=== PATIENT | female | born 1965 | race American Indian/Alaskan Native ===

== ENCOUNTER 2020-12-14 21:09 | Inpatient (IN) | payer BC ==
[2020-12-14] MEDS ORDERED: SODIUM CHLORIDE 0.9% 1000 ML 1,000 ML IV ONE ×2 (21:26→23:16)
[2020-12-14] MEDS ORDERED: ONDANSETRON 4 MG/2 ML INJ IV ONE (21:27)
--- NOTE | 2020-12-14 21:36 | Emergency Department Report ---
ED General Adult HPI - General Chief complaint: Chest Pain Stated complaint: CHEST PAIN Time Seen by Provider: 12/14/20 21:15 Source: patient, EMS Mode of arrival: Stretcher Limitations: No Limitations - History of Present Illness Initial comments: Patient is 55 years old female with history of diabetes and hypertension. Patient presented to the ER via EMS complaining of generalized weakness, chest pain, shortness of breath, nausea, vomiting and diarrhea. Patient stated that her symptoms been going on for 5 days. Patient stated that she tested positive for COVID-19 today. -: days(s) (5) Severity scale (0 -10): 0 - Related Data Home Medications Medication Instructions Recorded Confirmed Last Taken Zolpidem (Nf) [Ambien (Nf)] 10 mg PO QHS 06/06/14 12/16/20 Unknown glyBURIDE [Diabeta] 5 mg PO DAILY 06/06/14 12/16/20 Unknown metFORMIN [Glucophage] 1,000 mg PO BID 06/06/14 12/16/20 Unknown Previous Rx's Medication Instructions Recorded Last Taken Type Enoxaparin [Lovenox] 110 mg SQ BID #10 syringe 06/10/14 Unknown Rx Metoprolol [Lopressor TAB] 25 mg PO BID #60 tablet 06/10/14 Unknown Rx Warfarin [Coumadin] 7.5 mg PO DAILY@1700 #30 tablet 06/10/14 Unknown Rx amLODIPine 10 mg PO QDAY #30 tablet 06/10/14 Unknown Rx Allergies Allergy/AdvReac Type Severity Reaction Status Date / Time No Known Allergies Allergy Unverified 06/06/14 17:09 ED Review of Systems ROS: Stated complaint: CHEST PAIN Other details as noted in HPI Comment: All other systems reviewed and negative Constitutional: chills, fever ENT: throat pain, congestion Respiratory: cough, shortness of breath, SOB with exertion, SOB at rest Cardiovascular: chest pain, palpitations Gastrointestinal: nausea, vomiting, diarrhea. denies: abdominal pain Musculoskeletal: denies: back pain Neurological: weakness. denies: headache, numbness, paresthesias, confusion, a bnormal gait ED Past Medical Hx - Past Medical History Previous Medical History?: Yes Hx Hypertension: Yes Hx Diabetes: Yes Hx Pulmonary Embolism: Yes (diagnosed February 2010) Hx Asthma: Yes - Surgical History Past Surgical History?: No - Social History Smoking Status: Former Smoker Substance Use Type: None - Medications Home Medications: Home Medications Medication Instructions Recorded Confirmed Last Taken Type Zolpidem (Nf) [Ambien (Nf)] 10 mg PO QHS 06/06/14 12/16/20 Unknown History glyBURIDE [Diabeta] 5 mg PO DAILY 06/06/14 12/16/20 Unknown History metFORMIN [Glucophage] 1,000 mg PO BID 06/06/14 12/16/20 Unknown History Enoxaparin [Lovenox] 110 mg SQ BID #10 syringe 06/10/14 12/16/20 Unknown Rx Metoprolol [Lopressor TAB] 25 mg PO BID #60 tablet 06/10/14 12/16/20 Unknown Rx Warfarin [Coumadin] 7.5 mg PO DAILY@1700 #30 tablet 06/10/14 12/16/20 Unknown Rx amLODIPine 10 mg PO QDAY #30 tablet 06/10/14 12/16/20 Unknown Rx ED Physical Exam - General Limitations: No Limitations General appearance: alert, in distress - Head Head exam: Present: atraumatic, normocephalic, normal inspection - ENT ENT exam: Present: mucous membranes dry - Neck Neck exam: Present: normal inspection, full ROM. Absent: tenderness, meningismus - Respiratory Respiratory exam: Present: rales, decreased breath sounds. Absent: rhonchi - Cardiovascular Cardiovascular Exam: Present: tachycardia - GI/Abdominal GI/Abdominal exam: Present: soft, normal bowel sounds. Absent: distended, tenderness, guarding, rebound, rigid, organomegaly, mass, bruit, pulsatile mass, hernia - Extremities Exam Extremities exam: Present: normal inspection, full ROM, normal capillary refill. Absent: tenderness - Back Exam Back exam: Present: normal inspection, full ROM. Absent: CVA tenderness (R), CVA tenderness (L) - Neurological Exam Neurological exam: Present: alert, oriented X3, CN II-XII intact, normal gait, reflexes normal. Absent: motor sensory deficit - Psychiatric Psychiatric exam: Present: normal mood - Skin Skin exam: Present: warm, dry, intact ED Course Vital Signs 12/14/20 12/14/20 12/14/20 21:10 21:20 21:27 Temperature 97.5 F L Pulse Rate 114 H 113 H Respiratory 20 13 Rate Blood Pressure Blood Pressure 115/88 [Left] O2 Sat by Pulse 100 97 100 Oximetry 12/14/20 12/14/20 12/14/20 21:30 21:46 22:00 Temperature Pulse Rate 113 H 115 H 112 H Respiratory 18 14 26 H Rate Blood Pressure 112/85 115/88 115/88 Blood Pressure [Left] O2 Sat by Pulse 100 100 100 Oximetry 12/14/20 12/14/20 12/14/20 22:16 22:30 22:46 Temperature Pulse Rate 109 H 109 H 105 H Respiratory 17 21 19 Rate Blood Pressure 129/84 129/84 Blood Pressure [Left] O2 Sat by Pulse 100 100 99 Oximetry 12/14/20 12/14/20 12/14/20 23:16 23:27 23:30 Temperature Pulse Rate 107 H 108 H 111 H Respiratory 20 18 16 Rate Blood Pressure 129/84 116/93 Blood Pressure 116/93 [Left] O2 Sat by Pulse 100 100 100 Oximetry 12/14/20 12/14/20 12/15/20 23:40 23:46 00:00 Temperature Pulse Rate 111 H 107 H 103 H Respiratory 25 H 22 25 H Rate Blood Pressure 116/93 116/93 121/85 Blood Pressure [Left] O2 Sat by Pulse 98 99 100 Oximetry 12/15/20 12/15/20 12/15/20 00:16 00:30 00:46 Temperature Pulse Rate 104 H 115 H 108 H Respiratory 24 20 13 Rate Blood Pressure 121/85 121/85 Blood Pressure [Left] O2 Sat by Pulse 100 100 99 Oximetry 12/15/20 12/15/20 12/15/20 01:00 01:30 02:00 Temperature Pulse Rate 107 H 108 H 104 H Respiratory 22 26 H 26 H Rate Blood Pressure 127/75 109/62 109/62 Blood Pressure [Left] O2 Sat by Pulse 100 100 97 Oximetry 12/15/20 12/15/20 12/15/20 02:30 03:00 03:30 Temperature Pulse Rate 105 H 108 H 105 H Respiratory 24 22 12 Rate Blood Pressure 119/92 117/77 99/67 Blood Pressure [Left] O2 Sat by Pulse 98 99 99 Oximetry 12/15/20 12/15/20 12/15/20 04:00 04:30 05:00 Temperature Pulse Rate 104 H 95 H 92 H Respiratory 12 13 22 Rate Blood Pressure 94/64 94/64 109/90 Blood Pressure [Left] O2 Sat by Pulse 98 99 99 Oximetry 12/15/20 12/15/20 12/15/20 05:30 06:00 06:36 Temperature Pulse Rate 89 83 81 Respiratory 24 30 H 13 Rate Blood Pressure 128/104 126/90 Blood Pressure [Left] O2 Sat by Pulse 97 98 Oximetry 12/15/20 12/15/20 12/15/20 07:00 07:30 08:00 Temperature Pulse Rate 82 81 80 Respiratory 36 H 24 20 Rate Blood Pressure 124/95 112/73 112/73 Blood Pressure [Left] O2 Sat by Pulse 99 99 98 Oximetry 12/15/20 12/15/20 12/15/20 08:30 09:00 09:30 Temperature Pulse Rate 79 77 78 Respiratory 31 H 18 30 H Rate Blood Pressure 112/73 143/89 143/89 Blood Pressure [Left] O2 Sat by Pulse 97 85 100 Oximetry 12/15/20 12/15/20 12/15/20 10:00 10:30 11:00 Temperature Pulse Rate 79 78 78 Respiratory 29 H 22 28 H Rate Blood Pressure 116/82 104/75 101/73 Blood Pressure [Left] O2 Sat by Pulse 98 98 Oximetry 12/15/20 12/15/20 12/15/20 11:30 12:00 12:30 Temperature Pulse Rate 78 79 77 Respiratory 26 H 25 H 24 Rate Blood Pressure 101/73 118/79 107/87 Blood Pressure [Left] O2 Sat by Pulse 99 100 98 Oximetry 12/15/20 12/15/20 12/15/20 13:14 13:30 14:00 Temperature Pulse Rate 75 76 75 Respiratory 21 26 H 25 H Rate Blood Pressure 107/87 125/97 137/115 Blood Pressure [Left] O2 Sat by Pulse 100 99 100 Oximetry 12/15/20 12/15/20 12/15/20 14:30 15:00 15:30 Temperature Pulse Rate Respiratory 25 H 25 H 25 H Rate Blood Pressure 125/97 138/102 138/102 Blood Pressure [Left] O2 Sat by Pulse 97 98 97 Oximetry 12/15/20 12/15/20 12/15/20 16:00 16:30 17:00 Temperature Pulse Rate Respiratory 27 H 26 H 26 H Rate Blood Pressure 142/89 142/89 147/116 Blood Pressure [Left] O2 Sat by Pulse 94 99 98 Oximetry 12/15/20 12/15/20 12/15/20 17:30 18:00 18:30 Temperature Pulse Rate Respiratory 26 H 27 H 25 H Rate Blood Pressure 142/89 159/136 159/136 Blood Pressure [Left] O2 Sat by Pulse 97 98 98 Oximetry 12/15/20 12/15/20 12/15/20 18:51 19:00 19:55 Temperature Pulse Rate 88 Respiratory 26 H 24 24 Rate Blood Pressure 159/136 122/98 Blood Pressure 130/88 [Left] O2 Sat by Pulse 98 97 99 Oximetry 12/15/20 12/15/20 12/16/20 22:22 23:01 00:01 Temperature Pulse Rate 90 Respiratory 23 23 Rate Blood Pressure 154/76 134/74 133/73 Blood Pressure [Left] O2 Sat by Pulse 97 Oximetry 12/16/20 12/16/20 12/16/20 00:20 01:01 06:01 Temperature Pulse Rate 88 Respiratory 20 21 Rate Blood Pressure 113/82 116/67 Blood Pressure 154/87 [Left] O2 Sat by Pulse 98 96 96 Oximetry 12/16/20 12/16/20 12/16/20 06:51 07:01 07:11 Temperature Pulse Rate Respiratory Rate Blood Pressure 95/73 95/73 95/73 Blood Pressure [Left] O2 Sat by Pulse 95 95 95 Oximetry 12/16/20 12/16/20 12/16/20 07:18 07:21 07:30 Temperature Pulse Rate Respiratory Rate Blood Pressure 95/73 95/73 Blood Pressure [Left] O2 Sat by Pulse 97 94 95 Oximetry 12/16/20 07:54 Temperature Pulse Rate 85 Respiratory 16 Rate Blood Pressure 121/101 Blood Pressure [Left] O2 Sat by Pulse 96 Oximetry ED Medical Decision Making - Lab Data Result diagrams: 12/17/20 07:54 12/16/20 18:53 - EKG Data -: EKG Interpreted by [facility] EKG shows normal: sinus rhythm Rate: normal - EKG Data 12/14/20 23:[address] elevation, possible pericarditis. - Radiology Data Radiology results: report reviewed - Medical Decision Making Patient is 55 years old female with history of diabetes and hypertension. Patient presented to the ER via EMS complaining of generalized weakness, chest pain, shortness of breath, nausea, vomiting and diarrhea. Patient stated that her symptoms been going on for 5 days. Patient stated that she tested positive for COVID-19 today. Labs reviewed and showed elevated creatinine of 3.4 and BUN of 58 and a potassium of 5.6. Chest x-ray showed no acute abnormalities. Patient started on normal saline. Discussed the patient with Dr. Tejada he agreed to admit the patient to medical service for further management., Critical Care Time: Yes Critical care time in (mins) excluding proc time.: 30 Critical care attestation.: If time is entered above; I have spent that time in minutes in the direct care of this critically ill patient, excluding procedure time. ED Disposition Clinical Impression: COVID-19, Acute nausea with nonbilious vomiting, Acute hyperkalemia Acute renal failure Qualifiers: Acute renal failure type: with acute renal cortical necrosis Qualified Code(s): N17.1 - Acute kidney failure with acute cortical necrosis Disposition: DC-09 OP ADMIT IP TO THIS HOSP Is pt being admited?: Yes Condition: Stable
--- NOTE | 2020-12-14 21:58 | XRay Report ---
CHEST 1 VIEW 12/14/2020 9:31 PM INDICATION / CLINICAL INFORMATION: Dyspnea. COMPARISON: 07/11/2018 FINDINGS: SUPPORT DEVICES: None. HEART / MEDIASTINUM: No significant abnormality. LUNGS / PLEURA: No significant pulmonary or pleural abnormality. No pneumothorax. ADDITIONAL FINDINGS: No significant additional findings. IMPRESSION: 1. No acute findings. Signer Name: Charles Baker MD Signed: 12/14/2020 9:53 PM Workstation Name: [id number]
--- NOTE | 2020-12-14 22:02 | History and Physical Report ---
History of Present Illness Date of examination: 12/14/20 Date of admission: 12/14/20 Chief complaint: Shortness of breath Cough History of present illness: This is a 55 years old female with history of diabetes and hypertension. Patient presented to the ER via EMS complaining of generalized weakness, chest pain, shortness of breath, nausea, vomiting and diarrhea. Patient stated that her symptoms been going on for 5 days. Patient stated that she tested positive for COVID-19 today. Patient also reports abdominal pain. Patient is on oxygen by nasal cannula at 2 L. I reviewed patient medication record and vital signs. Patient started on Decadron, ascorbic acid, vitamin D and zinc sulfate. Patient advised on the use of incentive spirometer and prone positioning. Infectious disease consulted. Patient has history of PE and supposed to be on Coumadin. Patient patient has not been compliant with Coumadin therapyshe said she has not been taking it. Patient cannot recollect when she had the PE. Will start patient on heparin drip and Coumadinto a goal of 2-3 INR. Past History Past Medical History: diabetes, hypertension, pulmonary embolism Past Surgical History: No surgical history Social history: lives with family Family history: diabetes, hypertension Medications and Allergies Allergies Allergy/AdvReac Type Severity Reaction Status Date / Time No Known Allergies Allergy Unverified 06/06/14 17:09 Home Medications Medication Instructions Recorded Confirmed Last Taken Type Zolpidem (Nf) [Ambien (Nf)] 10 mg PO QHS 06/06/14 06/06/14 Unknown History glyBURIDE [Diabeta] 5 mg PO DAILY 06/06/14 06/06/14 Unknown History metFORMIN [Glucophage] 1,000 mg PO BID 06/06/14 06/06/14 Unknown History Enoxaparin [Lovenox] 110 mg SQ BID #10 syringe 06/10/14 Unknown Rx Metoprolol [Lopressor TAB] 25 mg PO BID #60 tablet 06/10/14 Unknown Rx Warfarin [Coumadin] 7.5 mg PO DAILY@1700 #30 tablet 06/10/14 Unknown Rx amLODIPine 10 mg PO QDAY #30 tablet 06/10/14 Unknown Rx Active Meds: Active Medications Sodium Chloride (Nacl 0.9% 1000 Ml) 1,000 mls @ 999 mls/hr IV BOLUS ONE Stop: 12/14/20 22:26 Last Admin: 12/14/20 21:45 Dose: 999 mls/hr Documented by: Review of Systems Constitutional: fatigue, weakness, malaise Ears, nose, mouth and throat: no epistaxis, no bleeding gums Breasts: no pain Cardiovascular: high blood pressure Respiratory: cough, shortness of breath, dyspnea on exertion, other (Patient on oxygen) Gastrointestinal: abdominal pain, nausea, vomiting, no melena Rectal: no itching, no hemorrhoids Musculoskeletal: muscle weakness Integumentary: no rash, no pruritis Psychiatric: anxiety Endocrine: high blood sugars Hematologic/Lymphatic: no easy bruising, no easy bleeding Allergic/Immunologic: no urticaria Exam - Constitutional Vitals: Temp Pulse Resp BP Pulse Ox 97.5 F L 114 H 20 115/88 100 12/14/20 21:10 12/14/20 21:10 12/14/20 21:10 12/14/20 21:10 12/14/20 21:27 General appearance: Present: mild distress, obese - EENT Eyes: Present: PERRL ENT: hearing intact, clear oral mucosa - Neck Neck: Present: supple, normal ROM - Respiratory Respiratory effort: normal Respiratory: bilateral: CTA - Cardiovascular Heart rate: 111 Heart Sounds: Present: S1 & S2. Absent: rub, click - Extremities Extremities: pulses symmetrical, No edema Peripheral Pulses: within normal limits - Abdominal General gastrointestinal: Present: soft, non-tender, non-distended, normal bowel sounds Female genitourinary: Present: normal - Integumentary Integumentary: Present: clear, warm, dry - Musculoskeletal Musculoskeletal: gait normal, strength equal bilaterally - Psychiatric Psychiatric: appropriate mood/affect, intact judgment & insight, cooperative - Neurologic Neurologic: CNII-XII intact, moves all extremities - Allied Health Allied health notes reviewed: nursing Results - Labs CBC & Chem 7: 12/14/20 21:42 12/15/20 01:58 Assessment and Plan - Patient Problems (1) Pulmonary embolism Current Visit: No Status: Acute Plan to address problem: Patient has history of pulmonary embolism We will continue anticoagulant with Coumadin Daily PT INR goal rates 2-3 Will discussed the consequence of non compliance with Coumadin therapy with patient When she is more alert and oriented (2) Diabetes Current Visit: No Status: Chronic Plan to address problem: Monitor blood sugar with sliding scale protocol Check hemoglobin A1c We will resume oral antidiabetic at discharge (3) Uncontrolled hypertension Current Visit: No Status: Chronic Plan to address problem: Monitor blood pressure Resume home antihypertensive As needed hydralazine (4) Acute hyperkalemia Current Visit: Yes Status: Acute Plan to address problem: Likely secondary to dehydration Monitor potassium level (5) Acute renal failure Current Visit: Yes Status: Acute Plan to address problem: Secondary to dehydration from nausea and vomiting Continue IV hydration Monitor kidney function consult manager radio if needed (6) COVID-19 Current Visit: Yes Status: Acute Plan to address problem: Patient said she was positive for Covid today Continue airborne and contact isolation per Covid protocol Consult ID follow-up with plan of care Ascorbic acid, vitamin D, and zinc sulfate supplement Encourage to use incentive spirometer and advised on prone position Monitor inflammatory markers CT of the chest shows bilateral pneumonia likely COVID-19 (7) Acute respiratory failure with hypoxia Current Visit: Yes Status: Acute Plan to address problem: Most likely due to Covid infection ABG, and bronchodilators, systemic steroid. Chest x-ray shows bilateral pneumonia [employer] consult follow-up with 60 respirations recommendation (8) DVT prophylaxis Current Visit: Yes Status: Acute Plan to address problem: Patient is on Coumadin Start heparin drip (9) Full code status Current Visit: Yes Status: Acute Plan to address problem: Patient is full code
[2020-12-14 22:23] LABS: Hematocrit 45.8 % (30.3-42.9); Hemoglobin 15.9 gm/dl (10.1-14.3); Mean Corpuscular HGB Conc 35 % (30-34); Mean Corpuscular Volume 87 fl (79-97); Platelet Count 289 K/mm3 (140-440); Red Cell Distribution Width 13.5 % (13.2-15.2)
[2020-12-14 22:25] LABS: INR 0.91 (0.87-1.13)
[2020-12-14 22:26] LABS: Partial Thromboplastin Time 30.3 Sec. (24.2-36.6)
[2020-12-14 22:36] LABS: BUN/Creatinine Ratio 19; Blood Urea Nitrogen 58 mg/dL (7-17); Calcium 9.4 mg/dL (8.4-10.2); Chol/HDL Ratio 5.88 %; HDL Cholesterol 25 mg/dL (40-59); Hemolysis Index 82; LDL Cholesterol,Direct TNR mg/dL (50-130)
[2020-12-15] MEDS ORDERED: ALUM-MAG HYDROXIDE-SIMETHICONE 200-200-20MG/5ML ORAL LIQD 30 ML PO PRN (00:07)
[2020-12-15] MEDS ORDERED: NALOXONE 0.4 MG/1 ML INJ IV PRN (00:07)
[2020-12-15] MEDS ORDERED: MAGNESIUM HYDROXIDE (MOM) ORAL LIQD UDC PO PRN (00:07)
[2020-12-15] MEDS ORDERED: IBUPROFEN 600 MG TAB PO PRN (00:07)
[2020-12-15] MEDS ORDERED: SENNOSIDES 8.6 MG TAB PO PRN (00:07)
[2020-12-15] MEDS ORDERED: ONDANSETRON 4 MG/2 ML INJ IV PRN (00:07)
[2020-12-15] MEDS ORDERED: ACETAMINOPHEN 325 MG TAB PO PRN (00:07)
[2020-12-15] MEDS ORDERED: SODIUM CHLORIDE 0.9% 1000 ML 1,000 ML IV SCH (00:15)
[2020-12-15] MEDS ORDERED: traZODone 50 MG TAB PO PRN (00:17)
--- NOTE | 2020-12-15 01:02 | Cat Scan Report ---
CT CHEST WITHOUT CONTRAST INDICATION / CLINICAL INFORMATION: Shortness Of Breath, COVID +. TECHNIQUE: Axial CT images were obtained through the chest without contrast. [facility] CT [facility] are performed using CT dose reduction for ALARA by means of automated exposure control. COMPARISON: No prior CT. Radiograph earlier in the day. FINDINGS: HEART: Heart is normal size. Small pericardial effusion measuring up to 10 mm thickness anterior to t he right ventricle. CORONARY ARTERY CALCIFICATION: None. THORACIC AORTA: No significant abnormality. MEDIASTINUM / RYAN: No significant abnormality. PLEURA: No pleural effusion. No pneumothorax. LUNGS: Multifocal patchy pulmonary opacities throughout all lobes. No airspace consolidation. ADDITIONAL FINDINGS: None. UPPER ABDOMEN: Multiple small calcified gallstones without inflammation. SKELETAL SYSTEM: No significant abnormality. IMPRESSION: 1. Patchy bilateral pneumonia likely representing early atypical/viral pneumonia such as Covid. 2. Small pericardial effusion. 3. Cholelithiasis. Signer Name: Akila Gurrola MD Signed: 12/15/2020 12:57 AM Workstation Name: [id number]
[2020-12-15] MEDS: ZINC SULFATE 220 MG CAP PO SCH ×3 (01:14→22:22)
[2020-12-15] MEDS: METOPROLOL TARTRATE 25 MG TAB PO SCH ×3 (01:14→22:22)
[2020-12-15 02:38] LABS: INR 0.96 (0.87-1.13)
[2020-12-15 02:47] LABS: C-Reactive Protein 0.6 mg/dL (0.00-1.30)
[2020-12-15] MEDS ORDERED: cefTRIAXone/NS 1 GM/50 ML 1 GM/50 ML BAG IV ONE (02:54)
[2020-12-15] MEDS ORDERED: AZITHROMYCIN/NS 500 MG/250 ML 500 MG/250 ML BAG IV ONE (02:54)
[2020-12-15] MEDS ORDERED: MORPHINE 4 MG/1 ML INJ IV ONE (05:02)
[2020-12-15] MEDS ORDERED: HEPARIN 10,000 UNITS/10 ML VIAL IV ONE (05:13)
[2020-12-15] MEDS ORDERED: HEPARIN 10,000 UNITS/10 ML VIAL IV PRN (05:13)
[2020-12-15] MEDS ORDERED: HEPARIN/ 0.45% NACL DRIP 25,000 UNIT/500 ML BAG IV SCH (06:00)
[2020-12-15 06:06] LABS: Alanine Aminotransferase 36 units/L (7-56)
[2020-12-15 06:08] LABS: Bilirubin,Direct < 0.2 mg/dL (0-0.2)
[2020-12-15] MEDS ORDERED: FAMOTIDINE 20 MG/2 ML INJ IV SCH ×2 (10:00)
--- NOTE | 2020-12-15 11:14 | Consultation ---
History of Present Illness Consult date: 12/15/20 Past History Past Medical History: diabetes, hypertension, pulmonary embolism Past Surgical History: No surgical history Social history: lives with family Family history: diabetes, hypertension Medications and Allergies Allergies Allergy/AdvReac Type Severity Reaction Status Date / Time No Known Allergies Allergy Unverified 06/06/14 17:09 Home Medications Medication Instructions Recorded Confirmed Last Taken Type Zolpidem (Nf) [Ambien (Nf)] 10 mg PO QHS 06/06/14 06/06/14 Unknown History glyBURIDE [Diabeta] 5 mg PO DAILY 06/06/14 06/06/14 Unknown History metFORMIN [Glucophage] 1,000 mg PO BID 06/06/14 06/06/14 Unknown History Enoxaparin [Lovenox] 110 mg SQ BID #10 syringe 06/10/14 Unknown Rx Metoprolol [Lopressor TAB] 25 mg PO BID #60 tablet 06/10/14 Unknown Rx Warfarin [Coumadin] 7.5 mg PO DAILY@1700 #30 tablet 06/10/14 Unknown Rx amLODIPine 10 mg PO QDAY #30 tablet 06/10/14 Unknown Rx Active Meds: Active Medications Acetaminophen (Acetaminophen 325 Mg Tab) 650 mg PO Q4H PRN PRN Reason: Pain MILD(1-3)/Fever >100.5/RECIO Al Hydrox/Mg Hydrox/Simethicone (Alum-Mag Hydroxide-Simethicone [id number]/5ml Oral Liqd 30 Ml) 30 ml PO Q4H PRN PRN Reason: Indigestion Amlodipine Besylate (Amlodipine 10 Mg Tab) 10 mg PO QDAY [facility] Ascorbic Acid (Ascorbic Acid 500 Mg Tab) 500 mg PO QDAY [facility] Cholecalciferol (Cholecalciferol (Vit D3) 1000 Unit (25 Mcg) Tab) 1,000 unit PO QDAY [facility] Dexamethasone (Dexamethasone 4 Mg/Ml Vial) 6 mg IV DAILY [facility] Famotidine (Famotidine 20 Mg/2 Ml Inj) 20 mg IV DAILY [facility] Heparin Sodium (Porcine) (Heparin 10,000 Units/10 Ml Vial) 4,000 unit 40 unit/kg (4000 unit) IV Q6H PRN PRN Reason: Anti-Xa Assay < 0.1 units/ml Sodium Chloride (Nacl 0.9% 1000 Ml) 1,000 mls @ 125 mls/hr IV DIRECT RONNA Last Admin: 12/15/20 01:14 Dose: 125 mls/hr Documented by: Heparin Sodium/Sodium Chloride (Heparin/ 0.45% Nacl-25,000 Unit/500 Ml) 25,000 unit in 500 mls @ 29 mls/hr IV TITR [facility]; Protocol Last Admin: 12/15/20 05:43 Dose: 1,450 units/hr, 29 mls/hr Documented by: Ibuprofen (Ibuprofen 600 Mg Tab) 600 mg PO Q6H PRN PRN Reason: Pain, Mild (1-3) Insulin Human Lispro (Insulin Lispro 100 Unit/Ml) 0 unit SUB-Q ACHS [facility]; Protocol Magnesium Hydroxide (Magnesium Hydroxide (Mom) Oral Liqd Udc) 30 ml PO Q4H PRN PRN Reason: Constipation Metoprolol Tartrate (Metoprolol Tartrate 25 Mg Tab) 25 mg PO BID [facility] Last Admin: 12/15/20 01:14 Dose: 25 mg Documented by: Naloxone HCl (Naloxone 0.4 Mg/1 Ml Inj) 0.1 mg IV Q2MIN PRN PRN Reason: Res Rate </= 8 or 02 SAT < 92% Ondansetron HCl (Ondansetron 4 Mg/2 Ml Inj) 4 mg IV Q8H PRN PRN Reason: Nausea And Vomiting Last Admin: 12/15/20 00:30 Dose: 4 mg Documented by: Senna (Sennosides 8.6 Mg Tab) 8.6 mg PO Q12HR PRN PRN Reason: Constipation Sodium Chloride (Sodium Chloride 0.9% 10 Ml Flush Syringe) 10 ml IV BID [facility] Sodium Chloride (Sodium Chloride 0.9% 10 Ml Flush Syringe) 10 ml IV PRN PRN PRN Reason: LINE FLUSH Trazodone HCl (Trazodone 50 Mg Tab) 50 mg PO QHS PRN PRN Reason: Insomnia Zinc Sulfate (Zinc Sulfate 220 Mg Cap) 220 mg PO BID [facility] Last Admin: 12/15/20 01:14 Dose: 220 mg Documented by: Physical Examination Vital signs: Vital Signs Temp Pulse Resp BP Pulse Ox 97.5 F L 114 H 20 115/88 100 12/14/20 21:10 12/14/20 21:10 12/14/20 21:10 12/14/20 21:10 12/14/20 21:10 Results - Laboratory Findings CBC and BMP: 12/14/20 21:42 12/15/20 01:58 PT/INR, D-dimer PT 13.3 Sec. (12.2-14.9) 12/15/20 01:58 INR 0.96 (0.87-1.13) 12/15/20 01:58 D-Dimer 247.74 ng/mlDDU (0-234) H 12/15/20 01:58 Abnormal lab findings: Abnormal Labs 12/14/20 12/14/20 12/14/20 21:42 21:42 21:42 RBC 5.30 H Hgb 15.9 H Hct 45.8 H MCHC 35 H D-Dimer 251.44 H Sodium 129 L Potassium 5.6 H Chloride 96.0 L Carbon Dioxide 14 L BUN 58 H Creatinine 3.1 H Glucose 229 H Hemoglobin A1c Lactic Acid Ferritin AST Lactate Dehydrogenase Troponin T 0.034 H Total Protein Albumin Triglycerides 429 H HDL Cholesterol 25 L 12/14/20 12/15/20 12/15/20 21:42 01:58 01:58 RBC Hgb Hct MCHC D-Dimer Sodium Potassium Chloride Carbon Dioxide BUN Creatinine Glucose 265 H Hemoglobin A1c Lactic Acid 3.60 H* 4.00 H* Ferritin AST Lactate Dehydrogenase 261 H Troponin T 0.057 H D Total Protein Albumin Triglycerides HDL Cholesterol 12/15/20 12/15/20 12/15/20 01:58 01:58 01:58 RBC Hgb Hct MCHC D-Dimer 247.74 H Sodium Potassium Chloride Carbon Dioxide BUN Creatinine Glucose Hemoglobin A1c 10.7 H Lactic Acid Ferritin 1584.0 H AST Lactate Dehydrogenase Troponin T Total Protein Albumin Triglycerides HDL Cholesterol 12/15/20 12/15/20 12/15/20 05:24 05:24 08:13 RBC Hgb Hct MCHC D-Dimer Sodium Potassium Chloride Carbon Dioxide BUN Creatinine Glucose Hemoglobin A1c Lactic Acid 7.70 H* 9.60 H* Ferritin AST 58 H Lactate Dehydrogenase Troponin T Total Protein 5.4 L Albumin 3.0 L Triglycerides HDL Cholesterol Assessment and Plan Patient appears to be followed by Dr. Horta as an outpatient. Please consult him.
--- NOTE | 2020-12-15 11:16 | Event Note ---
Date: 12/15/[address] Horta as an outpatient. Please consult him or his group. Thank you.
[2020-12-15] MEDS: dexAMETHasone 4 MG/ML VIAL IV SCH (13:10)
[2020-12-15] MEDS: amLODIPine 10 MG TAB PO SCH (13:10)
--- NOTE | 2020-12-15 13:13 | Consultation ---
History of Present Illness - Reason for Consult Consult date: 12/15/20 - History of Present Illness 55-year-old female past medical history diabetes, hypertension presented to the hospital complaining of weakness, chest pain, shortness of breath. This is associated with generalized gastrointestinal symptoms. She also began 5 days prior to admission, and that she tested positive for COVID-19 as an outpatient. Notably she has a history of pulmonary embolism, but has not been compliant with her outpatient warfarin. Afebrile with a white count of 7.4. Decreased renal function, EGFR 19. Procalcitonin elevated. Normal inflammatory markers. Blood cultures no growth so far. Currently on dexamethasone Imaging personally reviewed: Chest CT: Patchy bilateral pneumonia review of systems: Deferred to reduce to the risk of transmission of COVID-19 Past History Past Medical History: diabetes, hypertension, pulmonary embolism Past Surgical History: No surgical history Social history: lives with family Family history: diabetes, hypertension Medications and Allergies Allergies Allergy/AdvReac Type Severity Reaction Status Date / Time No Known Allergies Allergy Unverified 06/06/14 17:09 Home Medications Medication Instructions Recorded Confirmed Last Taken Type Zolpidem (Nf) [Ambien (Nf)] 10 mg PO QHS 06/06/14 06/06/14 Unknown History glyBURIDE [Diabeta] 5 mg PO DAILY 06/06/14 06/06/14 Unknown History metFORMIN [Glucophage] 1,000 mg PO BID 06/06/14 06/06/14 Unknown History Enoxaparin [Lovenox] 110 mg SQ BID #10 syringe 06/10/14 Unknown Rx Metoprolol [Lopressor TAB] 25 mg PO BID #60 tablet 06/10/14 Unknown Rx Warfarin [Coumadin] 7.5 mg PO DAILY@1700 #30 tablet 06/10/14 Unknown Rx amLODIPine 10 mg PO QDAY #30 tablet 06/10/14 Unknown Rx Active Meds: Active Medications Acetaminophen (Acetaminophen 325 Mg Tab) 650 mg PO Q4H PRN PRN Reason: Pain MILD(1-3)/Fever >100.5/RECIO Al Hydrox/Mg Hydrox/Simethicone (Alum-Mag Hydroxide-Simethicone [phone]/5ml Oral Liqd 30 Ml) 30 ml PO Q4H PRN PRN Reason: Indigestion Amlodipine Besylate (Amlodipine 10 Mg Tab) 10 mg PO QDAY [facility] Apixaban (Apixaban 5 Mg Tab) 5 mg PO Q12HR [facility]; Protocol Ascorbic Acid (Ascorbic Acid 500 Mg Tab) 500 mg PO QDAY [facility] Cholecalciferol (Cholecalciferol (Vit D3) 1000 Unit (25 Mcg) Tab) 1,000 unit PO QDAY [facility] Dexamethasone (Dexamethasone 4 Mg/Ml Vial) 6 mg IV DAILY [facility] Famotidine (Famotidine 20 Mg/2 Ml Inj) 20 mg IV DAILY [facility] Sodium Chloride (Nacl 0.9% 1000 Ml) 1,000 mls @ 125 mls/hr IV DIRECT [facility] Last Admin: 12/15/20 01:14 Dose: 125 mls/hr Documented by: Ibuprofen (Ibuprofen 600 Mg Tab) 600 mg PO Q6H PRN PRN Reason: Pain, Mild (1-3) Insulin Human Lispro (Insulin Lispro 100 Unit/Ml) 0 unit SUB-Q ACHS [facility]; Protocol Magnesium Hydroxide (Magnesium Hydroxide (Mom) Oral Liqd Udc) 30 ml PO Q4H PRN PRN Reason: Constipation Metoprolol Tartrate (Metoprolol Tartrate 25 Mg Tab) 25 mg PO BID [facility] Last Admin: 12/15/20 01:14 Dose: 25 mg Documented by: Naloxone HCl (Naloxone 0.4 Mg/1 Ml Inj) 0.1 mg IV Q2MIN PRN PRN Reason: Res Rate </= 8 or 02 SAT < 92% Ondansetron HCl (Ondansetron 4 Mg/2 Ml Inj) 4 mg IV Q8H PRN PRN Reason: Nausea And Vomiting Last Admin: 12/15/20 00:30 Dose: 4 mg Documented by: Senna (Sennosides 8.6 Mg Tab) 8.6 mg PO Q12HR PRN PRN Reason: Constipation Sodium Chloride (Sodium Chloride 0.9% 10 Ml Flush Syringe) 10 ml IV BID [facility] Sodium Chloride (Sodium Chloride 0.9% 10 Ml Flush Syringe) 10 ml IV PRN PRN PRN Reason: LINE FLUSH Trazodone HCl (Trazodone 50 Mg Tab) 50 mg PO QHS PRN PRN Reason: Insomnia Zinc Sulfate (Zinc Sulfate 220 Mg Cap) 220 mg PO BID [facility] Last Admin: 12/15/20 01:14 Dose: 220 mg Documented by: Zolpidem Tartrate (Zolpidem 5 Mg Tab) 10 mg PO QHS [facility] Physical Examination - Physical Exam Narrative exam: Physical exam deferred to reduce risk of transmission of COVID-19. Please refer to primary team's note. - Constitutional Vitals: Vital Signs Temp Pulse Resp BP Pulse Ox 97.5 F L 78 26 H 101/73 99 12/14/20 21:10 12/15/20 11:30 12/15/20 11:30 12/15/20 11:30 12/15/20 11:30 Temperature -Last 24 Hours Temperature 97.5 F Results - Labs CBC & Chem 7: 12/14/20 21:42 12/15/20 01:58 Labs: Abnormal lab results 12/14/20 12/14/20 12/14/20 Range/Units 21:42 21:42 21:42 RBC 5.30 H (3.65-5.03) M/mm3 Hgb 15.9 H (10.1-14.3) gm/dl Hct 45.8 H (30.3-42.9) % MCHC 35 H (30-34) % D-Dimer 251.44 H (0-234) ng/mlDDU Sodium 129 L (137-145) mmol/L Potassium 5.6 H (3.6-5.0) mmol/L Chloride 96.0 L (98-107) mmol/L Carbon Dioxide 14 L (22-30) mmol/L BUN 58 H (7-17) mg/dL Creatinine 3.1 H (0.6-1.2) mg/dL Glucose 229 H (65-100) mg/dL Hemoglobin A1c (4-6) % Lactic Acid (0.7-2.0) mmol/L Ferritin (10.0-200.0) ng/mL AST (5-40) units/L Lactate Dehydrogenase (91-180) units/L Troponin T 0.034 H (0.00-0.029) ng/mL Total Protein (6.3-8.2) g/dL Albumin (3.9-5) g/dL Triglycerides 429 H (2-149) mg/dL HDL Cholesterol 25 L (40-59) mg/dL 12/14/20 12/15/20 12/15/20 Range/Units 21:42 01:58 01:58 RBC (3.65-5.03) M/mm3 Hgb (10.1-14.3) gm/dl Hct (30.3-42.9) % MCHC (30-34) % D-Dimer (0-234) ng/mlDDU Sodium (137-145) mmol/L Potassium (3.6-5.0) mmol/L Chloride (98-107) mmol/L Carbon Dioxide (22-30) mmol/L BUN (7-17) mg/dL Creatinine (0.6-1.2) mg/dL Glucose 265 H (65-100) mg/dL Hemoglobin A1c (4-6) % Lactic Acid 3.60 H* 4.00 H* (0.7-2.0) mmol/L Ferritin (10.0-200.0) ng/mL AST (5-40) units/L Lactate Dehydrogenase 261 H (91-180) units/L Troponin T 0.057 H D (0.00-0.029) ng/mL Total Protein (6.3-8.2) g/dL Albumin (3.9-5) g/dL Triglycerides (2-149) mg/dL HDL Cholesterol (40-59) mg/dL 12/15/20 12/15/20 12/15/20 Range/Units 01:58 01:58 01:58 RBC (3.65-5.03) M/mm3 Hgb (10.1-14.3) gm/dl Hct (30.3-42.9) % MCHC (30-34) % D-Dimer 247.74 H (0-234) ng/mlDDU Sodium (137-145) mmol/L Potassium (3.6-5.0) mmol/L Chloride (98-107) mmol/L Carbon Dioxide (22-30) mmol/L BUN (7-17) mg/dL Creatinine (0.6-1.2) mg/dL Glucose (65-100) mg/dL Hemoglobin A1c 10.7 H (4-6) % Lactic Acid (0.7-2.0) mmol/L Ferritin 1584.0 H (10.0-200.0) ng/mL AST (5-40) units/L Lactate Dehydrogenase (91-180) units/L Troponin T (0.00-0.029) ng/mL Total Protein (6.3-8.2) g/dL Albumin (3.9-5) g/dL Triglycerides (2-149) mg/dL HDL Cholesterol (40-59) mg/dL 12/15/20 12/15/20 12/15/20 Range/Units 05:24 05:24 08:13 RBC (3.65-5.03) M/mm3 Hgb (10.1-14.3) gm/dl Hct (30.3-42.9) % MCHC (30-34) % D-Dimer (0-234) ng/mlDDU Sodium (137-145) mmol/L Potassium (3.6-5.0) mmol/L Chloride (98-107) mmol/L Carbon Dioxide (22-30) mmol/L BUN (7-17) mg/dL Creatinine (0.6-1.2) mg/dL Glucose (65-100) mg/dL Hemoglobin A1c (4-6) % Lactic Acid 7.70 H* 9.60 H* (0.7-2.0) mmol/L Ferritin (10.0-200.0) ng/mL AST 58 H (5-40) units/L Lactate Dehydrogenase (91-180) units/L Troponin T (0.00-0.029) ng/mL Total Protein 5.4 L (6.3-8.2) g/dL Albumin 3.0 L (3.9-5) g/dL Triglycerides (2-149) mg/dL HDL Cholesterol (40-59) mg/dL Assessment and Plan Cultures: Blood culture no growth so far COVID positive as outpatient A/P: 55-year-old female past medical history diabetes, hypertension, pulmonary embolism presented to hospital with COVID-19 #COVID-19 pneumonia: Patient presented with a week of symptoms, chest x-ray with diffuse bilateral infiltrates, admission O2 sats on room air. #Acute hypoxemic respiratory failure: Likely secondary to COVID-19 infection. Currently on 2L NC #JULY: Renally dose antibiotics, not currently on candidate for remdesivir #Diabetes: tight glycemic control for best outcomes. Recs: -Dexamethasone 6 mg IV/PO daily for 10 days -Obtain q48-72h inflammatory markers - ferritin, Ddimer, CRP, LDH -Anticoagulation per hospital protocol -Proning as able Thank you for the consult, we will continue to follow. Carolann Grover MD [facility] ([facility] O: [phone] F: [phone]
--- NOTE | 2020-12-15 16:21 | Consultation ---
History of Present Illness - Reason for Consult acute renal failure - History of Present Illness 55-year-old female with a past medical history of hypertension and diabetes presented to the emergency department secondary to worsening weakness and shortness of breath. Found to have tested positive for COVID-19 and is being treated appropriately for COVID-19 pneumonia at this time. nephrology was consulted secondary to labs concerning for acute kidney injury with unclear baseline kidney disease. Past History Past Medical History: diabetes, hypertension, pulmonary embolism Past Surgical History: No surgical history Social history: lives with family Family history: diabetes, hypertension Medications and Allergies Allergies Allergy/AdvReac Type Severity Reaction Status Date / Time No Known Allergies Allergy Unverified 06/06/14 17:09 Home Medications Medication Instructions Recorded Confirmed Last Taken Type Zolpidem (Nf) [Ambien (Nf)] 10 mg PO QHS 06/06/14 06/06/14 Unknown History glyBURIDE [Diabeta] 5 mg PO DAILY 06/06/14 06/06/14 Unknown History metFORMIN [Glucophage] 1,000 mg PO BID 06/06/14 06/06/14 Unknown History Enoxaparin [Lovenox] 110 mg SQ BID #10 syringe 06/10/14 Unknown Rx Metoprolol [Lopressor TAB] 25 mg PO BID #60 tablet 06/10/14 Unknown Rx Warfarin [Coumadin] 7.5 mg PO DAILY@1700 #30 tablet 06/10/14 Unknown Rx amLODIPine 10 mg PO QDAY #30 tablet 06/10/14 Unknown Rx Active Meds: Active Medications Acetaminophen (Acetaminophen 325 Mg Tab) 650 mg PO Q4H PRN PRN Reason: Pain MILD(1-3)/Fever >100.5/RECIO Al Hydrox/Mg Hydrox/Simethicone (Alum-Mag Hydroxide-Simethicone [phone]/5ml Oral Liqd 30 Ml) 30 ml PO Q4H PRN PRN Reason: Indigestion Amlodipine Besylate (Amlodipine 10 Mg Tab) 10 mg PO QDAY [facility] Last Admin: 12/15/20 13:10 Dose: 10 mg Documented by: Apixaban (Apixaban 5 Mg Tab) 5 mg PO Q12HR [facility]; Protocol Ascorbic Acid (Ascorbic Acid 500 Mg Tab) 500 mg PO QDAY [facility] Aspirin (Aspirin 81 Mg Tab Chew) 81 mg PO QDAY [facility] Cholecalciferol (Cholecalciferol (Vit D3) 1000 Unit (25 Mcg) Tab) 1,000 unit PO QDAY [facility] Dexamethasone (Dexamethasone 4 Mg/Ml Vial) 6 mg IV DAILY [facility] Last Admin: 12/15/20 13:10 Dose: 6 mg Documented by: Famotidine (Famotidine 20 Mg/2 Ml Inj) 20 mg IV DAILY [facility] Last Admin: 12/15/20 13:10 Dose: 20 mg Documented by: Sodium Chloride (Nacl 0.9% 1000 Ml) 1,000 mls @ 125 mls/hr IV DIRECT [facility] Last Admin: 12/15/20 01:14 Dose: 125 mls/hr Documented by: Ibuprofen (Ibuprofen 600 Mg Tab) 600 mg PO Q6H PRN PRN Reason: Pain, Mild (1-3) Insulin Human Lispro (Insulin Lispro 100 Unit/Ml) 0 unit SUB-Q ACHS [facility]; Protocol Magnesium Hydroxide (Magnesium Hydroxide (Mom) Oral Liqd Udc) 30 ml PO Q4H PRN PRN Reason: Constipation Metoprolol Tartrate (Metoprolol Tartrate 25 Mg Tab) 25 mg PO BID [facility] Last Admin: 12/15/20 13:10 Dose: 25 mg Documented by: Naloxone HCl (Naloxone 0.4 Mg/1 Ml Inj) 0.1 mg IV Q2MIN PRN PRN Reason: Res Rate </= 8 or 02 SAT < 92% Ondansetron HCl (Ondansetron 4 Mg/2 Ml Inj) 4 mg IV Q8H PRN PRN Reason: Nausea And Vomiting Last Admin: 12/15/20 00:30 Dose: 4 mg Documented by: Senna (Sennosides 8.6 Mg Tab) 8.6 mg PO Q12HR PRN PRN Reason: Constipation Sodium Chloride (Sodium Chloride 0.9% 10 Ml Flush Syringe) 10 ml IV BID [facility] Sodium Chloride (Sodium Chloride 0.9% 10 Ml Flush Syringe) 10 ml IV PRN PRN PRN Reason: LINE FLUSH Trazodone HCl (Trazodone 50 Mg Tab) 50 mg PO QHS PRN PRN Reason: Insomnia Zinc Sulfate (Zinc Sulfate 220 Mg Cap) 220 mg PO BID [facility] Last Admin: 12/15/20 13:10 Dose: 220 mg Documented by: Zolpidem Tartrate (Zolpidem 5 Mg Tab) 10 mg PO QHS [facility] Review of Systems Constitutional: fatigue, weakness Exam - Vital Signs Vital signs: Vital Signs Temp Pulse Resp BP Pulse Ox 97.5 F L 114 H 20 115/88 100 12/14/20 21:10 12/14/20 21:10 12/14/20 21:10 12/14/20 21:10 12/14/20 21:10 - Physical Exam Narrative exam: patient was not directly physically examined in order to preserve PPE and reduce risk of transmission of COVID-19. primary team notes and physical examination reviewed at this time. Results - Lab Results 12/14/20 21:42 12/15/20 01:58 Most recent lab results Calcium 9.4 mg/dL (8.4-10.2) 12/14/20 21:42 - Image Kidney/bladder ultrasound: pending Assessment and Plan - Patient Problems (1) Acute renal failure Current Visit: Yes Status: Acute Plan to address problem: likely in the setting of Kovic 19 pneumonia prerenal injury. Agree with current regimen and gentle IV fluid hydration. Avoid all nephrotoxins and maintain mean arterial pressures above 65 mmHg. We will order renal ultrasound along with urine electrolytes. (2) Acute hyperkalemia Current Visit: Yes Status: Acute Plan to address problem: medical management with labs pending at this time. Anticipate that with gentle IV fluid hydration should also be able to improve potassium secretion. (3) Hypertension Current Visit: Yes Status: Chronic Plan to address problem: monitor blood pressures under current regimen. (4) Acute respiratory failure with hypoxia Current Visit: Yes Status: Acute Plan to address problem: management per primary/pulmonology. Stable on current oxygen therapy. (5) COVID-19 Current Visit: Yes Status: Acute Plan to address problem: appreciate recommendations from infectious disease. Management per ID recomme ndations. (6) Diabetes Current Visit: No Status: Chronic Plan to address problem: diabetes management per primary attending.
[2020-12-15 16:34] LABS: Hematocrit 43.7 % (30.3-42.9); Hemoglobin 14.5 gm/dl (10.1-14.3); Mean Corpuscular HGB Conc 33 % (30-34); Mean Corpuscular Volume 90 fl (79-97); Platelet Count 230 K/mm3 (140-440); Red Blood Count 4.86 M/mm3 (3.65-5.03); Red Cell Distribution Width 13.8 % (13.2-15.2)
--- NOTE | 2020-12-15 16:39 | Consultation ---
History of Present Illness Consult date: 12/15/20 Requesting physician: EYAD HUFFMAN Consult reason: elevated troponin History of present illness: 55 y/o female with a pmhx of DM and HTN who presented to the ED with complaints of weakness, mailase, SOB, nausea, vomiting, and diarrhea x4 days. Per documentation patient has history of PE is on Coumadin and is non compliant with Coumadin. At time of interview patient denies an PMHx other than HTN and DM. Patient reported on 12/14/2020 she tested positive for COVID-19 and after feeling worse decided to come to the ED. The patient also endorses a sharp pain that occurs upon movement at times that she rates as 2/10. Cardiology was consulted because patient had elevated troponins= 0.03-> 0.057. Past History Past Medical History: diabetes, hypertension, pulmonary embolism Past Surgical History: No surgical history Social history: lives with family Family history: diabetes, hypertension Medications and Allergies Allergies Allergy/AdvReac Type Severity Reaction Status Date / Time No Known Allergies Allergy Unverified 06/06/14 17:09 Home Medications Medication Instructions Recorded Confirmed Last Taken Type Zolpidem (Nf) [Ambien (Nf)] 10 mg PO QHS 06/06/14 06/06/14 Unknown History glyBURIDE [Diabeta] 5 mg PO DAILY 06/06/14 06/06/14 Unknown History metFORMIN [Glucophage] 1,000 mg PO BID 06/06/14 06/06/14 Unknown History Enoxaparin [Lovenox] 110 mg SQ BID #10 syringe 06/10/14 Unknown Rx Metoprolol [Lopressor TAB] 25 mg PO BID #60 tablet 06/10/14 Unknown Rx Warfarin [Coumadin] 7.5 mg PO DAILY@1700 #30 tablet 06/10/14 Unknown Rx amLODIPine 10 mg PO QDAY #30 tablet 06/10/14 Unknown Rx Active Meds: Active Medications Acetaminophen (Acetaminophen 325 Mg Tab) 650 mg PO Q4H PRN PRN Reason: Pain MILD(1-3)/Fever >100.5/RECIO Al Hydrox/Mg Hydrox/Simethicone (Alum-Mag Hydroxide-Simethicone [phone]/5ml Oral Liqd 30 Ml) 30 ml PO Q4H PRN PRN Reason: Indigestion Amlodipine Besylate (Amlodipine 10 Mg Tab) 10 mg PO QDAY [facility] Last Admin: 12/15/20 13:10 Dose: 10 mg Documented by: Apixaban (Apixaban 5 Mg Tab) 5 mg PO Q12HR [facility]; Protocol Ascorbic Acid (Ascorbic Acid 500 Mg Tab) 500 mg PO QDAY [facility] Aspirin (Aspirin 81 Mg Tab Chew) 81 mg PO QDAY [facility] Cholecalciferol (Cholecalciferol (Vit D3) 1000 Unit (25 Mcg) Tab) 1,000 unit PO QDAY [facility] Dexamethasone (Dexamethasone 4 Mg/Ml Vial) 6 mg IV DAILY [facility] Last Admin: 12/15/20 13:10 Dose: 6 mg Documented by: Famotidine (Famotidine 20 Mg/2 Ml Inj) 20 mg IV DAILY [facility] Last Admin: 12/15/20 13:10 Dose: 20 mg Documented by: Sodium Chloride (Nacl 0.9% 1000 Ml) 1,000 mls @ 125 mls/hr IV DIRECT [facility] Last Admin: 12/15/20 01:14 Dose: 125 mls/hr Documented by: Ibuprofen (Ibuprofen 600 Mg Tab) 600 mg PO Q6H PRN PRN Reason: Pain, Mild (1-3) Insulin Human Lispro (Insulin Lispro 100 Unit/Ml) 0 unit SUB-Q ACHS [facility]; Protocol Magnesium Hydroxide (Magnesium Hydroxide (Mom) Oral Liqd Udc) 30 ml PO Q4H PRN PRN Reason: Constipation Metoprolol Tartrate (Metoprolol Tartrate 25 Mg Tab) 25 mg PO BID [facility] Last Admin: 12/15/20 13:10 Dose: 25 mg Documented by: Naloxone HCl (Naloxone 0.4 Mg/1 Ml Inj) 0.1 mg IV Q2MIN PRN PRN Reason: Res Rate </= 8 or 02 SAT < 92% Ondansetron HCl (Ondansetron 4 Mg/2 Ml Inj) 4 mg IV Q8H PRN PRN Reason: Nausea And Vomiting Last Admin: 12/15/20 00:30 Dose: 4 mg Documented by: Senna (Sennosides 8.6 Mg Tab) 8.6 mg PO Q12HR PRN PRN Reason: Constipation Sodium Chloride (Sodium Chloride 0.9% 10 Ml Flush Syringe) 10 ml IV BID [facility] Sodium Chloride (Sodium Chloride 0.9% 10 Ml Flush Syringe) 10 ml IV PRN PRN PRN Reason: LINE FLUSH Trazodone HCl (Trazodone 50 Mg Tab) 50 mg PO QHS PRN PRN Reason: Insomnia Zinc Sulfate (Zinc Sulfate 220 Mg Cap) 220 mg PO BID [facility] Last Admin: 12/15/20 13:10 Dose: 220 mg Documented by: Zolpidem Tartrate (Zolpidem 5 Mg Tab) 10 mg PO QHS [facility] Review of Systems All systems: negative Constitutional: fever, weakness, malaise, no weight loss, no weight gain Ears, nose, mouth and throat: no ear pain, no ear discharge, no tinnitis, no decreased hearing, no nasal congestion Cardiovascular: chest pain, shortness of breath, no orthopnea, no palpitations, no edema, no syncope, no lightheadedness Respiratory: cough, shortness of breath, no cough with sputum, no excessive sputum Gastrointestinal: abdominal pain, nausea, vomiting, diarrhea, no constipation Musculoskeletal: no neck stiffness, no neck pain, no shooting arm pain Integumentary: no rash, no pruritis, no redness Neurological: no head injury, no transient paralysis, no paralysis Psychiatric: no anxiety Endocrine: no cold intolerance, no heat intolerance Hematologic/Lymphatic: no easy bruising, no easy bleeding Physical Examination Last Vital Signs Temp 97.5 F L 12/14/20 21:10 Pulse 78 12/15/20 11:30 Resp 26 H 12/15/20 11:30 BP 101/73 12/15/20 11:30 Pulse Ox 99 12/15/20 11:30 General appearance: no acute distress HEENT: Positive: PERRL Neck: Positive: trachea midline Cardiac: Positive: Reg Rate and Rhythm Lungs: Positive: clear to auscultation, Normal Breath Sounds Neuro: Positive: Grossly Intact Abdomen: Positive: Soft, Active Bowel Sounds Skin: Negative: Rash, Suspicious Lesions, Ulceration Extremities: Present: upper extr. pulses, lower extr. pulses. Absent: edema Results 12/14/20 21:42 12/15/20 15:18 Cardiac Enzymes 12/15/20 12/15/20 Range/Units 01:58 05:24 AST 58 H (5-40) units/L Lactate Dehydrogenase 261 H (91-180) units/L Coagulation 12/14/20 12/15/20 Range/Units 21:42 01:58 PT 12.8 13.3 (12.2-14.9) Sec. INR 0.91 0.96 (0.87-1.13) APTT 30.3 (24.2-36.6) Sec. Lipids 12/14/20 Range/Units 21:42 Triglycerides 429 H (2-149) mg/dL Cholesterol 147 (50-199) mg/dL HDL Cholesterol 25 L (40-59) mg/dL Cholesterol/HDL Ratio 5.88 % CBC 12/14/20 Range/Units 21:42 WBC 7.4 (4.5-11.0) K/mm3 RBC 5.30 H (3.65-5.03) M/mm3 Hgb 15.9 H (10.1-14.3) gm/dl Hct 45.8 H (30.3-42.9) % Plt Count 289 (140-440) K/mm3 Lymph # (Auto) Director Of Quality Control [place] # (Auto) Director Of Quality Control Eos # (Auto) Director Of Quality Control Baso # (Auto) Director Of Quality Control Comprehensive Metabolic Panel 12/14/20 12/15/20 12/15/20 Range/Units 21:42 01:58 05:24 Sodium 129 L (137-145) mmol/L Potassium 5.6 H (3.6-5.0) mmol/L Chloride 96.0 L (98-107) mmol/L Carbon Dioxide 14 L (22-30) mmol/L BUN 58 H (7-17) mg/dL Creatinine 3.1 H (0.6-1.2) mg/dL Glucose 229 H 265 H (65-100) mg/dL Calcium 9.4 (8.4-10.2) mg/dL Direct Bilirubin < 0.2 (0-0.2) mg/dL Indirect Bilirubin 0.0 mg/dL AST 58 H (5-40) units/L ALT 36 (7-56) units/L Alkaline Phosphatase 67 (35-129) units/L Total Protein 5.4 L (6.3-8.2) g/dL Albumin 3.0 L (3.9-5) g/dL 12/15/20 Range/Units 15:18 Sodium (137-145) mmol/L Potassium (3.6-5.0) mmol/L Chloride (98-107) mmol/L Carbon Dioxide (22-30) mmol/L BUN (7-17) mg/dL Creatinine 3.7 H (0.6-1.2) mg/dL Glucose (65-100) mg/dL Calcium (8.4-10.2) mg/dL Direct Bilirubin (0-0.2) mg/dL Indirect Bilirubin mg/dL AST (5-40) units/L ALT (7-56) units/L Alkaline Phosphatase (35-129) units/L Total Protein (6.3-8.2) g/dL Albumin (3.9-5) g/dL - Imaging and Cardiology EKG: report reviewed, image reviewed EKG interpretations - Telemetry EKG Rhythm: Sinus Tachycardia - EKG Sinus rhythms and dysrhythmias: sinus tachycardia Assessment and Plan Elevated Troponins * EKG shows sinus tachy with rate of 113 with no acute ischemic changes. * Patients troponins noted to be mildly elevated 0.03-> 0.05. trend CE COVID-19 * Patient reports testing positive for COVID-19 * COVID PCR test pending * ID consulted Acute respiratory failure in setting of COVID-19 * Pulmonology consulted HTN * Agree with Amlodipine 10mg PO QD, Metoprolol 50mg PO BID, DVT prophlaxis * H/o PE * Patient on Eliquis * Manage per primary team Patient seen in conjunction with Dr. Pickens who agrees with this plan of care. Will continue to follow - Patient Problems (1) Acute respiratory failure with hypoxia Current Visit: Yes Status: Acute (2) COVID-19 Current Visit: Yes Status: Acute (3) DVT prophylaxis Current Visit: Yes Status: Acute (4) Person under investigation for COVID-19 Current Visit: Yes Status: Acute (5) Hypertension Current Visit: Yes Status: Chronic (6) Diabetes Current Visit: No Status: Chronic
[2020-12-15 16:45] LABS: INR 1.19 (0.87-1.13)
[2020-12-15 16:50] LABS: Partial Thromboplastin Time 106.2 Sec. (24.2-36.6)
[2020-12-15] MEDS ORDERED: WARFARIN 7.5 MG TAB PO SCH (17:00)
[2020-12-15] MEDS: APIXABAN 5 MG TAB PO SCH ×2 (17:51→22:24)
[2020-12-15] MEDS: ASPIRIN 81 MG TAB CHEW PO SCH (17:51)
--- NOTE | 2020-12-15 18:09 | Electrocardiograph Report ---
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
[2020-12-15] MEDS ORDERED: ZOLPIDEM 10 MG PO SCH (22:00)
[2020-12-15] MEDS ORDERED: ENOXAPARIN 100 MG/1 ML INJ SUB-Q SCH (22:00)
[2020-12-15] MEDS: INSULIN LISPRO 100 UNIT/ML SUB-Q SCH (22:25)
[2020-12-15] MEDS: ZOLPIDEM 5 MG TAB PO SCH (22:25)
[2020-12-16 06:02] LABS: Hematocrit 45.9 % (30.3-42.9); Hemoglobin 15.8 gm/dl (10.1-14.3); Mean Corpuscular HGB Conc 34 % (30-34); Mean Corpuscular Volume 88 fl (79-97); Platelet Count 255 K/mm3 (140-440); Red Blood Count 5.24 M/mm3 (3.65-5.03)
[2020-12-16 06:20] LABS: Albumin 2.9 g/dL (3.9-5); Calcium 8.4 mg/dL (8.4-10.2)
[2020-12-16] MEDS ORDERED: SODIUM POLYSTYRENE 15 GM/60 ML ORAL LIQD PO ONE (06:58)
[2020-12-16] MEDS: INSULIN LISPRO 100 UNIT/ML SUB-Q SCH ×5 (07:06→22:02)
[2020-12-16] MEDS: ASCORBIC ACID 500 MG TAB PO SCH ×2 (07:07→09:54)
[2020-12-16] MEDS: CHOLECALCIFEROL (VIT D3) 1000 UNIT (25 mcg) TAB PO SCH ×2 (07:08→09:54)
[2020-12-16] MEDS ORDERED: CALCIUM GLUCONATE 2,000 MG in SODIUM CHLORIDE 0.9% 100 ML IV ONE (07:20)
[2020-12-16] MEDS: dexAMETHasone 4 MG/ML VIAL IV SCH (09:53)
[2020-12-16] MEDS: APIXABAN 5 MG TAB PO SCH ×2 (09:54→22:44)
[2020-12-16] MEDS: FAMOTIDINE 10 MG TAB PO SCH ×2 (09:54→22:44)
[2020-12-16] MEDS: ZINC SULFATE 220 MG CAP PO SCH ×2 (09:54→22:44)
[2020-12-16] MEDS: METOPROLOL TARTRATE 25 MG TAB PO SCH ×2 (09:54→22:44)
[2020-12-16] MEDS: ASPIRIN 81 MG TAB CHEW PO SCH (09:54)
[2020-12-16] MEDS: amLODIPine 10 MG TAB PO SCH (10:41)
--- NOTE | 2020-12-16 11:16 | Progress Note ---
Assessment and Plan - Patient Problems (1) Acute renal failure Current Visit: Yes Status: Acute Plan to address problem: likely in the setting of COVID-19 pneumonia prerenal injury. Agree with current regimen but will adjust IVF to D5W w/150 meq NaHCO3 at 125 cc/hr. Avoid all nephrotoxins and maintain mean arterial pressures above 65 mmHg. If renal function continues to worsen and hyperkalemia persists, may need to transition to temporary HD. Will treat medically first with aggressive fluid hydration and kayexulate. (2) Acute hyperkalemia Current Visit: Yes Status: Acute Plan to address problem: labs noted with worsening hyperkalemia. Unsure whether she received earlier scheduled dose of kayexulate. Will order kayexulate 60g today and will also adjust her IVF to D5W w/150 meq NaHCO3 at 125 cc/hr. Please ensure that she is on a low K diet. (3) Hypertension Current Visit: Yes Status: Chronic Plan to address problem: monitor blood pressures under current regimen. (4) Acute respiratory failure with hypoxia Current Visit: Yes Status: Acute Plan to address problem: management per primary/pulmonology. Stable on current oxygen therapy. She is on room air at this point per nursing staff. Chest xray did not show any acute abnormalities. (5) COVID-19 Current Visit: Yes Status: Acute Plan to address problem: appreciate recommendations from infectious disease. Management per ID recommendations. (6) Diabetes Current Visit: No Status: Chronic Plan to address problem: diabetes management per primary attending. Subjective Date of service: 12/16/20 Interval history: Patient remains on room air. Lethargic bu answers questions and interacts per nursing staff. Labs reviewed significant for hyperkalemia and worsening renal function. Order was placed for kayexulate 30 mg, but after discussing with primary nurse, patient had just come from ER and she is uncertain whether she even got the dose of kayexulate that was ordered. Will place order for higher dose at this time and will adjust current IVF to D5W with 150 meq NaHCO3 at 125 cc/hr. Chest -xray reviewed was clear. Objective - Exam Narrative Exam: patient was not directly physically examined in order to preserve PPE and reduce risk of transmission of COVID-19. primary team notes and physical examination reviewed at this time. - Vital Signs Vital signs: Vital Signs - 12hr 12/16/20 12/16/20 12/16/20 00:01 00:20 01:01 Temperature Pulse Rate 88 Respiratory 23 20 21 Rate Blood Pressure 133/73 113/82 Blood Pressure 154/87 [Left] O2 Sat by Pulse 98 96 Oximetry 12/16/20 12/16/20 12/16/20 06:01 06:51 07:01 Temperature Pulse Rate Respiratory Rate Blood Pressure 116/67 95/73 95/73 Blood Pressure [Left] O2 Sat by Pulse 96 95 95 Oximetry 12/16/20 12/16/20 12/16/20 07:11 07:21 07:54 Temperature Pulse Rate 85 Respiratory 16 Rate Blood Pressure 95/73 95/73 121/101 Blood Pressure [Left] O2 Sat by Pulse 95 94 96 Oximetry 12/16/20 12/16/20 12/16/20 08:00 09:54 10:41 Temperature 98.7 F Pulse Rate 91 H 91 H 91 H Respiratory 19 Rate Blood Pressure Blood Pressure 134/79 [Left] O2 Sat by Pulse 96 Oximetry - Lab 12/16/20 04:28 12/16/20 04:28 Most recent lab results Calcium 8.4 mg/dL (8.4-10.2) 12/16/20 04:28 Medications & Allergies - Medications Allergies/Adverse Reactions: Allergies No Known Allergies Allergy (Unverified 06/06/14 17:09) Home Medications: Home Medications Medication Instructions Recorded Confirmed Last Taken Type Zolpidem (Nf) [Ambien (Nf)] 10 mg PO QHS 06/06/14 06/06/14 Unknown History glyBURIDE [Diabeta] 5 mg PO DAILY 06/06/14 06/06/14 Unknown History metFORMIN [Glucophage] 1,000 mg PO BID 06/06/14 06/06/14 Unknown History Enoxaparin [Lovenox] 110 mg SQ BID #10 syringe 06/10/14 Unknown Rx Metoprolol [Lopressor TAB] 25 mg PO BID #60 tablet 06/10/14 Unknown Rx Warfarin [Coumadin] 7.5 mg PO DAILY@1700 #30 tablet 06/10/14 Unknown Rx amLODIPine 10 mg PO QDAY #30 tablet 06/10/14 Unknown Rx Active Medications: Generic Name Dose Route Start Last Admin Trade Name Freq PRN Reason Stop Dose Admin Acetaminophen 650 mg 12/15/20 00:07 Acetaminophen 325 Mg Tab PO Q4H PRN Pain MILD(1-3)/Fever >100.5/RECIO Al Hydrox/Mg Hydrox/Simethicone 30 ml 12/15/20 00:07 Alum-Mag Hydroxide-Simethicone [id number]/5ml Oral Liqd 30 Ml PO Q4H PRN Indigestion Amlodipine Besylate 10 mg 12/15/20 10:00 12/16/20 10:41 Amlodipine 10 Mg Tab PO 10 mg QDAY RONNA Administration Apixaban 5 mg 12/15/20 14:00 12/16/20 09:54 Apixaban 5 Mg Tab PO 5 mg Q12HR RONNA Administration Protocol Ascorbic Acid 500 mg 12/15/20 10:00 12/16/20 09:54 Ascorbic Acid 500 Mg Tab PO 500 mg QDAY RONNA Administration Aspirin 81 mg 12/15/20 14:00 12/16/20 09:54 Aspirin 81 Mg Tab Chew PO 81 mg QDAY RONNA Administration Cholecalciferol 1,000 unit 12/15/20 10:00 12/16/20 09:54 Cholecalciferol (Vit D3) 1000 Unit (25 Mcg) Tab PO 1,000 unit QDAY RONNA Administration Dexamethasone 6 mg 12/15/20 10:00 12/16/20 09:53 Dexamethasone 4 Mg/Ml Vial IV 12/24/20 10:01 6 mg DAILY RONNA Administration Famotidine 10 mg 12/16/20 10:00 12/16/20 09:54 Famotidine 10 Mg Tab PO 10 mg BID RONNA Administration Sodium Bicarbonate 150 meq/ 1,150 mls @ 125 mls/hr 12/16/20 12:00 Dextrose IV DIRECT RONNA Ibuprofen 600 mg 12/15/20 00:07 Ibuprofen 600 Mg Tab PO Q6H PRN Pain, Mild (1-3) Insulin Human Lispro 0 unit 12/15/20 07:30 12/16/20 07:11 Insulin Lispro 100 Unit/Ml SUB-Q 4 unit ACHS RONNA Administration Protocol Magnesium Hydroxide 30 ml 12/15/20 00:07 Magnesium Hydroxide (Mom) Oral Liqd Udc PO Q4H PRN Constipation Metoprolol Tartrate 25 mg 12/15/20 01:00 12/16/20 09:54 Metoprolol Tartrate 25 Mg Tab PO 25 mg BID RONNA Administration Naloxone HCl 0.1 mg 12/15/20 00:07 Naloxone 0.4 Mg/1 Ml Inj IV Q2MIN PRN Res Rate </= 8 or 02 SAT < 92% Ondansetron HCl 4 mg 12/15/20 00:07 12/15/20 00:30 Ondansetron 4 Mg/2 Ml Inj IV 4 mg Q8H PRN Administration Nausea And Vomiting Senna 8.6 mg 12/15/20 00:07 Sennosides 8.6 Mg Tab PO Q12HR PRN Constipation Sodium Chloride 10 ml 12/15/20 10:00 12/16/20 09:54 Sodium Chloride 0.9% 10 Ml Flush Syringe IV 10 ml BID RONNA Administration Sodium Chloride 10 ml 12/15/20 00:07 Sodium Chloride 0.9% 10 Ml Flush Syringe IV PRN PRN LINE FLUSH Trazodone HCl 50 mg 12/15/20 00:17 Trazodone 50 Mg Tab PO QHS PRN Insomnia Zinc Sulfate 220 mg 12/15/20 01:00 12/16/20 09:54 Zinc Sulfate 220 Mg Cap PO 220 mg BID RONNA Administration Zolpidem Tartrate 10 mg 12/15/20 22:00 12/15/20 22:25 Zolpidem 5 Mg Tab PO Not Given QHS RONNA
--- NOTE | 2020-12-16 11:27 | Consultation ---
History of Present Illness Consult date: 12/16/20 Consult reason: elevated troponin History of present illness: 55-year old F who is known to [facility] but has been lost to outpatient follow up since 2018. In 2018 she was hospitalized for acute CVA. Cardiac workup with an echo showed normal left ventricular systolic function, EF 60%. BREANNA showed a PFO but no atrial septal aneurysm. As an outpatient, she was referred to [facility] for evaluation of PFO closure but did not keep the appointment. Patient also has a history of PE but reports over a year ago was taken off anticoagulation by a editing clerk. Co-morbidities includes Htn, and diabetes. She was admitted 2 days ago with progressive shortness of breath and generalized weakness after testing positive for COVID-19. There were no complaints of chest pain or palpitations. Laboratory measurements shows multiple metabolic abnormalities including renal failure, creatinine 3.9 with a potassium at 6.7. There is also elevation of liver transaminase, lactic acidosis, and uncontrolled blood glucose. Her presenting ECG is sinus tachycardia with mild ST elevation suggestive of acute pericarditis. Past History Past Medical History: diabetes, hypertension, pulmonary embolism Past Surgical History: No surgical history Social history: lives with family Family history: diabetes, hypertension Medications and Allergies Allergies Allergy/AdvReac Type Severity Reaction Status Date / Time No Known Allergies Allergy Unverified 06/06/14 17:09 Home Medications Medication Instructions Recorded Confirmed Last Taken Type Zolpidem (Nf) [Ambien (Nf)] 10 mg PO QHS 06/06/14 06/06/14 Unknown History glyBURIDE [Diabeta] 5 mg PO DAILY 06/06/14 06/06/14 Unknown History metFORMIN [Glucophage] 1,000 mg PO BID 06/06/14 06/06/14 Unknown History Enoxaparin [Lovenox] 110 mg SQ BID #10 syringe 06/10/14 Unknown Rx Metoprolol [Lopressor TAB] 25 mg PO BID #60 tablet 06/10/14 Unknown Rx Warfarin [Coumadin] 7.5 mg PO DAILY@1700 #30 tablet 06/10/14 Unknown Rx amLODIPine 10 mg PO QDAY #30 tablet 06/10/14 Unknown Rx Active Meds: Active Medications Acetaminophen (Acetaminophen 325 Mg Tab) 650 mg PO Q4H PRN PRN Reason: Pain MILD(1-3)/Fever >100.5/RECIO Al Hydrox/Mg Hydrox/Simethicone (Alum-Mag Hydroxide-Simethicone [phone]/5ml Oral Liqd 30 Ml) 30 ml PO Q4H PRN PRN Reason: Indigestion Amlodipine Besylate (Amlodipine 10 Mg Tab) 10 mg PO QDAY [facility] Last Admin: 12/16/20 10:41 Dose: 10 mg Documented by: Apixaban (Apixaban 5 Mg Tab) 5 mg PO Q12HR [facility]; Protocol Last Admin: 12/16/20 09:54 Dose: 5 mg Documented by: Ascorbic Acid (Ascorbic Acid 500 Mg Tab) 500 mg PO QDAY [facility] Last Admin: 12/16/20 09:54 Dose: 500 mg Documented by: Aspirin (Aspirin 81 Mg Tab Chew) 81 mg PO QDAY [facility] Last Admin: 12/16/20 09:54 Dose: 81 mg Documented by: Cholecalciferol (Cholecalciferol (Vit D3) 1000 Unit (25 Mcg) Tab) 1,000 unit PO QDAY [facility] Last Admin: 12/16/20 09:54 Dose: 1,000 unit Documented by: Dexamethasone (Dexamethasone 4 Mg/Ml Vial) 6 mg IV DAILY [facility] Stop: 12/24/20 10:01 Last Admin: 12/16/20 09:53 Dose: 6 mg Documented by: Famotidine (Famotidine 10 Mg Tab) 10 mg PO BID [facility] Last Admin: 12/16/20 09:54 Dose: 10 mg Documented by: Sodium Bicarbonate 150 meq/ (Dextrose) 1,150 mls @ 125 mls/hr IV DIRECT [facility] Ibuprofen (Ibuprofen 600 Mg Tab) 600 mg PO Q6H PRN PRN Reason: Pain, Mild (1-3) Insulin Human Lispro (Insulin Lispro 100 Unit/Ml) 0 unit SUB-Q ACHS [facility]; Protocol Last Admin: 12/16/20 07:11 Dose: 4 unit Documented by: Magnesium Hydroxide (Magnesium Hydroxide (Mom) Oral Liqd Udc) 30 ml PO Q4H PRN PRN Reason: Constipation Metoprolol Tartrate (Metoprolol Tartrate 25 Mg Tab) 25 mg PO BID [facility] Last Admin: 12/16/20 09:54 Dose: 25 mg Documented by: Naloxone HCl (Naloxone 0.4 Mg/1 Ml Inj) 0.1 mg IV Q2MIN PRN PRN Reason: Res Rate </= 8 or 02 SAT < 92% Ondansetron HCl (Ondansetron 4 Mg/2 Ml Inj) 4 mg IV Q8H PRN PRN Reason: Nausea And Vomiting Last Admin: 12/15/20 00:30 Dose: 4 mg Documented by: Senna (Sennosides 8.6 Mg Tab) 8.6 mg PO Q12HR PRN PRN Reason: Constipation Sodium Chloride (Sodium Chloride 0.9% 10 Ml Flush Syringe) 10 ml IV BID [facility] Last Admin: 12/16/20 09:54 Dose: 10 ml Documented by: Sodium Chloride (Sodium Chloride 0.9% 10 Ml Flush Syringe) 10 ml IV PRN PRN PRN Reason: LINE FLUSH Sodium Polystyrene Sulfonate (Sodium Polystyrene 15 Gm/60 Ml Oral Liqd) 60 gm PO ONCE ONE Stop: 12/16/20 11:20 Trazodone HCl (Trazodone 50 Mg Tab) 50 mg PO QHS PRN PRN Reason: Insomnia Zinc Sulfate (Zinc Sulfate 220 Mg Cap) 220 mg PO BID [facility] Last Admin: 12/16/20 09:54 Dose: 220 mg Documented by: Zolpidem Tartrate (Zolpidem 5 Mg Tab) 10 mg PO QHS [facility] Last Admin: 12/15/20 22:25 Dose: Not Given Documented by: Physical Examination Vital Signs Temp Pulse Resp BP Pulse Ox 97.5 F L 114 H 20 115/88 100 12/14/20 21:10 12/14/20 21:10 12/14/20 21:10 12/14/20 21:10 12/14/20 21:10 Narrative exam: Deferred due to COVID 19 infection. General appearance: no acute distress Results 12/16/20 04:28 12/16/20 04:28 Cardiac Enzymes 12/16/20 Range/Units 04:28 AST 929 H (5-40) units/L Coagulation 12/15/20 Range/Units 15:18 PT 15.6 H (12.2-14.9) Sec. INR 1.19 H (0.87-1.13) APTT 106.2 H* (24.2-36.6) Sec. CBC 12/15/20 12/16/20 Range/Units 15:18 04:28 WBC 10.8 8.5 (4.5-11.0) K/mm3 RBC 4.86 5.24 H (3.65-5.03) M/mm3 Hgb 14.5 H 15.8 H (10.1-14.3) gm/dl Hct 43.7 H 45.9 H (30.3-42.9) % Plt Count 230 255 (140-440) K/mm3 Lymph # (Auto) Machine Set Up Technician [place] # (Auto) Machine Set Up Technician Eos # (Auto) Machine Set Up Technician Baso # (Auto) Machine Set Up Technician Comprehensive Metabolic Panel 12/15/20 12/16/20 Range/Units 15:18 04:28 Sodium 130 L (137-145) mmol/L Potassium 6.7 H* (3.6-5.0) mmol/L Chloride 99.3 (98-107) mmol/L Carbon Dioxide 12 L (22-30) mmol/L BUN 93 H (7-17) mg/dL Creatinine 3.7 H 3.9 H (0.6-1.2) mg/dL Glucose 354 H (65-100) mg/dL Calcium 8.4 (8.4-10.2) mg/dL AST 929 H (5-40) units/L ALT 563 H (7-56) units/L Alkaline Phosphatase 96 (35-129) units/L Total Protein 6.6 D (6.3-8.2) g/dL Albumin 2.9 L (3.9-5) g/dL Assessment and Plan - Patient Problems (1) COVID-19 Current Visit: Yes Status: Acute
[2020-12-16] MEDS ORDERED: SODIUM POLYSTYRENE 15 GM/60 ML ORAL LIQD PO NR (11:30)
[2020-12-16] MEDS: SODIUM BICARBONATE 150 MEQ in DEXTROSE 5% IN WATER 1,000 ML IV SCH (12:48)
[2020-12-16] MEDS ORDERED: SODIUM POLYSTYRENE 15 GM/60 ML ORAL LIQD PO SCH (13:00)
--- NOTE | 2020-12-16 14:19 | Consultation ---
History of Present Illness Consult date: 12/16/20 Reason for consult: dyspnea, cough, pulmonary embolism History of present illness: This is a 55 years old female with history of diabetes and hypertension. Patient presented to the ER via EMS complaining of generalized weakness, chest pain, shortness of breath, nausea, vomiting and diarrhea. Patient stated that her symptoms been going on for 5 days. Patient stated that she tested positive for COVID-19 today. Patient also reports abdominal pain. Patient is on oxygen by nasal cannula at 2 L. Patient started on Decadron, ascorbic acid, vitamin D and zinc sulfate. Patient advised on the use of incentive spirometer and prone positioning. Infectious disease consulted. Patient has history of PE and supposed to be on Coumadin. Patient patient has not been compliant with Coumadin therapyshe said she has not been taking it. Patient cannot recollect when she had the PE. Will start patient on heparin drip and Coumadin . Patient has no history of smoking, alcohol or drug abuse. 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 No Known drug allergies. Patient alert, awake. No complaint of chest pain, shortness of breath or cough. Patient resting on room air. O2 saturation 92%. Patient afebrile. No leukocytosis. Chest xray done 12/14/20 reported No acute findings. Patient presently on Apixaban, Dexamethasone, Famotidine Past History Past Medical History: diabetes, hypertension, pulmonary embolism Past Surgical History: No surgical history Social history: lives with family Family history: diabetes, hypertension Medications and Allergies Allergies Allergy/AdvReac Type Severity Reaction Status Date / Time No Known Allergies Allergy Unverified 06/06/14 17:09 Home Medications Medication Instructions Recorded Confirmed Last Taken Type Zolpidem (Nf) [Ambien (Nf)] 10 mg PO QHS 06/06/14 12/16/20 Unknown History glyBURIDE [Diabeta] 5 mg PO DAILY 06/06/14 12/16/20 Unknown History metFORMIN [Glucophage] 1,000 mg PO BID 06/06/14 12/16/20 Unknown History Enoxaparin [Lovenox] 110 mg SQ BID #10 syringe 06/10/14 12/16/20 Unknown Rx Metoprolol [Lopressor TAB] 25 mg PO BID #60 tablet 06/10/14 12/16/20 Unknown Rx Warfarin [Coumadin] 7.5 mg PO DAILY@1700 #30 tablet 06/10/14 12/16/20 Unknown Rx amLODIPine 10 mg PO QDAY #30 tablet 06/10/14 12/16/20 Unknown Rx Active Meds: Active Medications Acetaminophen (Acetaminophen 325 Mg Tab) 650 mg PO Q4H PRN PRN Reason: Pain MILD(1-3)/Fever >100.5/RECIO Al Hydrox/Mg Hydrox/Simethicone (Alum-Mag Hydroxide-Simethicone [id number]/5ml Oral Liqd 30 Ml) 30 ml PO Q4H PRN PRN Reason: Indigestion Amlodipine Besylate (Amlodipine 10 Mg Tab) 10 mg PO QDAY COUNT INCLUDES THE [facility] Last Admin: 12/16/20 10:41 Dose: 10 mg Documented by: Apixaban (Apixaban 5 Mg Tab) 5 mg PO Q12HR COUNT INCLUDES THE [facility]; Protocol Last Admin: 12/16/20 09:54 Dose: 5 mg Documented by: Ascorbic Acid (Ascorbic Acid 500 Mg Tab) 500 mg PO QDAY COUNT INCLUDES THE [facility] Last Admin: 12/16/20 09:54 Dose: 500 mg Documented by: Aspirin (Aspirin 81 Mg Tab Chew) 81 mg PO QDAY COUNT INCLUDES THE [facility] Last Admin: 12/16/20 09:54 Dose: 81 mg Documented by: Cholecalciferol (Cholecalciferol (Vit D3) 1000 Unit (25 Mcg) Tab) 1,000 unit PO QDAY COUNT INCLUDES THE [facility] Last Admin: 12/16/20 09:54 Dose: 1,000 unit Documented by: Dexamethasone (Dexamethasone 4 Mg/Ml Vial) 6 mg IV DAILY COUNT INCLUDES THE [facility] Stop: 12/24/20 10:01 Last Admin: 12/16/20 09:53 Dose: 6 mg Documented by: Famotidine (Famotidine 10 Mg Tab) 10 mg PO BID COUNT INCLUDES THE [facility] Last Admin: 12/16/20 09:54 Dose: 10 mg Documented by: Sodium Bicarbonate 150 meq/ (Dextrose) 1,150 mls @ 125 mls/hr IV DIRECT COUNT INCLUDES THE [facility] Last Admin: 12/16/20 12:48 Dose: 125 mls/hr Documented by: Ibuprofen (Ibuprofen 600 Mg Tab) 600 mg PO Q6H PRN PRN Reason: Pain, Mild (1-3) Insulin Human Lispro (Insulin Lispro 100 Unit/Ml) 0 unit SUB-Q ACHS COUNT INCLUDES THE [facility]; Protocol Last Admin: 12/16/20 13:01 Dose: 3 unit Documented by: Magnesium Hydroxide (Magnesium Hydroxide (Mom) Oral Liqd Udc) 30 ml PO Q4H PRN PRN Reason: Constipation Metoprolol Tartrate (Metoprolol Tartrate 25 Mg Tab) 25 mg PO BID COUNT INCLUDES THE [facility] Last Admin: 12/16/20 09:54 Dose: 25 mg Documented by: Naloxone HCl (Naloxone 0.4 Mg/1 Ml Inj) 0.1 mg IV Q2MIN PRN PRN Reason: Res Rate </= 8 or 02 SAT < 92% Ondansetron HCl (Ondansetron 4 Mg/2 Ml Inj) 4 mg IV Q8H PRN PRN Reason: Nausea And Vomiting Last Admin: 12/15/20 00:30 Dose: 4 mg Documented by: Senna (Sennosides 8.6 Mg Tab) 8.6 mg PO Q12HR PRN PRN Reason: Constipation Sodium Chloride (Sodium Chloride 0.9% 10 Ml Flush Syringe) 10 ml IV BID COUNT INCLUDES THE [facility] Last Admin: 12/16/20 09:54 Dose: 10 ml Documented by: Sodium Chloride (Sodium Chloride 0.9% 10 Ml Flush Syringe) 10 ml IV PRN PRN PRN Reason: LINE FLUSH Sodium Polystyrene Sulfonate (Sodium Polystyrene 15 Gm/60 Ml Oral Liqd) 60 gm PO ONCE COUNT INCLUDES THE [facility] Stop: 12/16/20 15:00 Last Admin: 12/16/20 13:04 Dose: 60 gm Documented by: Trazodone HCl (Trazodone 50 Mg Tab) 50 mg PO QHS PRN PRN Reason: Insomnia Zinc Sulfate (Zinc Sulfate 220 Mg Cap) 220 mg PO BID COUNT INCLUDES THE [facility] Last Admin: 12/16/20 09:54 Dose: 220 mg Documented by: Zolpidem Tartrate (Zolpidem 5 Mg Tab) 10 mg PO QHS COUNT INCLUDES THE [facility] Last Admin: 12/15/20 22:25 Dose: Not Given Documented by: Review of Systems All systems: negative Physical Examination Vital signs: Vital Signs Temp Pulse Resp BP Pulse Ox 97.5 F L 114 H 20 115/88 100 12/14/20 21:10 12/14/20 21:10 12/14/20 21:10 12/14/20 21:10 12/14/20 21:10 General appearance: no acute distress, alert Eyes: non-icteric ENT: oropharynx moist Neck: supple, no JVD Ascultation: Bilateral: diminished breath sounds Cardiovascular: regular rate and rhythm Gastrointestinal: normoactive bowel sounds, soft Integumentary: normal Extremities: no cyanosis, no edema Musculoskeletal: no deformities Gait: other (Resting in bed at this time.) normal mental status, non-focal exam, pupils equal and round, CN II-XII normal depressed Results - Laboratory Findings CBC and BMP: 12/16/20 04:28 12/16/20 18:53 PT/INR, D-dimer PT 15.6 Sec. (12.2-14.9) H 12/15/20 15:18 INR 1.19 (0.87-1.13) H 12/15/20 15:18 D-Dimer 247.74 ng/mlDDU (0-234) H 12/15/20 01:58 Abnormal lab findings: Abnormal Labs 12/14/20 12/14/20 12/14/20 21:42 21:42 21:42 RBC 5.30 H Hgb 15.9 H Hct 45.8 H MCHC 35 H PT INR APTT D-Dimer 251.44 H Sodium 129 L Potassium 5.6 H Chloride 96.0 L Carbon Dioxide 14 L BUN 58 H Creatinine 3.1 H Glucose 229 H POC Glucose Hemoglobin A1c Lactic Acid Ferritin AST ALT Lactate Dehydrogenase Troponin T 0.034 H Total Protein Albumin Triglycerides 429 H HDL Cholesterol 25 L Coronavirus (PCR) 12/14/20 12/15/20 12/15/20 21:42 01:58 01:58 RBC Hgb Hct MCHC PT INR APTT D-Dimer Sodium Potassium Chloride Carbon Dioxide BUN Creatinine Glucose 265 H POC Glucose Hemoglobin A1c Lactic Acid 3.60 H* 4.00 H* Ferritin AST ALT Lactate Dehydrogenase 261 H Troponin T 0.057 H D Total Protein Albumin Triglycerides HDL Cholesterol Coronavirus (PCR) 12/15/20 12/15/20 12/15/20 01:58 01:58 01:58 RBC Hgb Hct MCHC PT INR APTT D-Dimer 247.74 H Sodium Potassium Chloride Carbon Dioxide BUN Creatinine Glucose POC Glucose Hemoglobin A1c 10.7 H Lactic Acid Ferritin 1584.0 H AST ALT Lactate Dehydrogenase Troponin T Total Protein Albumin Triglycerides HDL Cholesterol Coronavirus (PCR) 12/15/20 12/15/20 12/15/20 05:24 05:24 08:13 RBC Hgb Hct MCHC PT INR APTT D-Dimer Sodium Potassium Chloride Carbon Dioxide BUN Creatinine Glucose POC Glucose Hemoglobin A1c Lactic Acid 7.70 H* 9.60 H* Ferritin AST 58 H ALT Lactate Dehydrogenase Troponin T Total Protein 5.4 L Albumin 3.0 L Triglycerides HDL Cholesterol Coronavirus (PCR) 12/15/20 12/15/20 12/15/20 13:15 15:18 15:18 RBC Hgb 14.5 H Hct 43.7 H MCHC PT 15.6 H INR 1.19 H APTT 106.2 H* D-Dimer Sodium Potassium Chloride Carbon Dioxide BUN Creatinine Glucose POC Glucose 310 H Hemoglobin A1c Lactic Acid Ferritin AST ALT Lactate Dehydrogenase Troponin T Total Protein Albumin Triglycerides HDL Cholesterol Coronavirus (PCR) 12/15/20 12/15/20 12/15/20 15:18 22:10 Unknown RBC Hgb Hct MCHC PT INR APTT D-Dimer Sodium Potassium Chloride Carbon Dioxide BUN Creatinine 3.7 H Glucose POC Glucose 378 H Hemoglobin A1c Lactic Acid Ferritin AST ALT Lactate Dehydrogenase Troponin T Total Protein Albumin Triglycerides HDL Cholesterol Coronavirus (PCR) Positive A 12/16/20 12/16/20 12/16/20 04:28 04:28 07:09 RBC 5.24 H Hgb 15.8 H Hct 45.9 H MCHC PT INR APTT D-Dimer Sodium 130 L Potassium 6.7 H* Chloride Carbon Dioxide 12 L BUN 93 H Creatinine 3.9 H Glucose 354 H POC Glucose 336 H Hemoglobin A1c Lactic Acid Ferritin AST 929 H ALT 563 H Lactate Dehydrogenase Troponin T Total Protein Albumin 2.9 L Triglycerides HDL Cholesterol Coronavirus (PCR) 12/16/20 12:41 RBC Hgb Hct MCHC PT INR APTT D-Dimer Sodium Potassium Chloride Carbon Dioxide BUN Creatinine Glucose POC Glucose 291 H Hemoglobin A1c Lactic Acid Ferritin AST ALT Lactate Dehydrogenase Troponin T Total Protein Albumin Triglycerides HDL Cholesterol Coronavirus (PCR) - Diagnostic Findings Chest x-ray: report reviewed, image reviewed Additional studies: CHEST 1 VIEW 12/14/2020 9:31 PM INDICATION / CLINICAL INFORMATION: Dyspnea. COMPARISON: 07/11/2018 FINDINGS: SUPPORT DEVICES: None. HEART / MEDIASTINUM: No significant abnormality. LUNGS / PLEURA: No significant pulmonary or pleural abnormality. No pneumothorax. ADDITIONAL FINDINGS: No significant additional findings. IMPRESSION: 1. No acute findings. Assessment and Plan This is a 55 years old female with history of diabetes and hypertension. Patient presented to the ER via EMS complaining of generalized weakness, chest pain, shortness of breath, nausea, vomiting and diarrhea. Patient stated that her symptoms been going on for 5 days. Patient stated that she tested positive for COVID-19 today. Patient also reports abdominal pain. Patient is on oxygen by nasal cannula at 2 L. Patient started on Decadron, ascorbic acid, vitamin D and zinc sulfate. Patient advised on the use of incentive spirometer and prone positioning. Infectious disease consulted. Patient has history of PE and supposed to be on Coumadin. Patient patient has not been compliant with Coumadin therapyshe said she has not been taking it. Patient cannot recollect when she had the PE. Will start patient on heparin drip and Coumadin . Patient has no history of smoking, alcohol or drug abuse. 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 No Known drug allergies. Patient alert, awake. No complaint of chest pain, shortness of breath or cough. Patient resting on room air. O2 saturation 92%. Patient afebrile. No leukocy tosis. Chest xray done 12/14/20 reported No acute findings. Patient presently on Apixaban, Dexamethasone, Famotidine - Patient Problems (1) Acute respiratory failure with hypoxia Current Visit: Yes Status: Acute Plan to address problem: Improved. Patient presently on room air. O2 saturation 92%. Recommend O2 2 litres via nasal canula. (2) COVID-19 Current Visit: Yes Status: Acute Plan to address problem: Patient is on Apixaban, Dexamethasone and famotidine. Management as per ID (3) Acute renal failure Current Visit: Yes Status: Acute Qualifiers: Acute renal failure type: with acute renal cortical necrosis Qualified Code(s): N17.1 - Acute kidney failure with acute cortical necrosis (4) Acute hyperkalemia Current Visit: Yes Status: Acute Plan to address problem: Managent as per nephrology. (5) Acute nausea with nonbilious vomiting Current Visit: Yes Status: Acute Plan to address problem: Management as per primary care and Gastroenterology. (6) Hypertension Current Visit: Yes Status: Chronic Qualifiers: Hypertension type: primary hypertension Qualified Code(s): I10 - Essential (primary) hypertension Plan to address problem: Management as per primary care. (7) Pulmonary embolism Current Visit: No Status: Acute Qualifiers: Chronicity: chronic Plan to address problem: Patient is on Apixaban (8) Diabetes Current Visit: No Status: Chronic Plan to address problem: Management as per primary care.
--- NOTE | 2020-12-16 15:00 | Progress Note ---
Assessment and Plan - Patient Problems (1) Acute respiratory failure with hypoxia Current Visit: Yes Status: Acute Plan to address problem: Supplemental oxygen, pulse oximetry, nebulizer therapy, noninvasive positive pressure ventilation as clinically indicated. (2) COVID-19 Current Visit: Yes Status: Acute Plan to address problem: Coronavirus protocol: IV steroid therapy, IV antibiotic therapy, contact precautions, isolation precaution, prone positioning while in bed, therapeutic anticoagulation. (3) Acute renal failure Current Visit: Yes Status: Acute Qualifiers: Acute renal failure type: with acute renal cortical necrosis Qualified Code(s): N17.1 - Acute kidney failure with acute cortical necrosis Plan to address problem: Monitor urine output every shift, continue medical management, IV fluid resuscitation therapy as clinically indicated, nephrology team consulted. Dialysis as per renal team. Repeat BMP in a.m., (4) Hypertension Current Visit: Yes Status: Chronic Qualifiers: Hypertension type: primary hypertension Qualified Code(s): I10 - Essential (primary) hypertension Plan to address problem: Monitor blood pressure every shift, continue medical management (5) Pulmonary embolism Current Visit: No Status: Acute Qualifiers: Chronicity: chronic Plan to address problem: Continue therapeutic anticoagulation, supportive care. (6) Diabetes Current Visit: No Status: Chronic Plan to address problem: Consistent carbohydrate diet, Accu-Chek, insulin protocol, hypoglycemia protocol (7) Obesity hypoventilation syndrome Current Visit: Yes Status: Acute Plan to address problem: Balanced diet, increase physical activity at discharge, outpatient pulmonary follow-up for sleep study. (8) DVT prophylaxis Current Visit: Yes Status: Acute Plan to address problem: SCD to bilateral lower extremities while in bed, continue therapeutic anticoagulation History Interval history: 55 YO Female HD #2 with acute hypoxemic respiratory failure secondary to coronavirus infection, history of pulmonary embolism, acute kidney injury, obesity hypoventilation syndrome. Patient convalesced well overnight. No reported nursing events. Patient acknowledges continued shortness of breath, gen eralized weakness, as well as malaise. Patient denies pain. Hospitalist Physical - Constitutional Vitals: Temp Pulse Resp BP Pulse Ox 98.7 F 92 H 29 H 151/70 94 12/16/20 08:00 12/16/20 13:41 12/16/20 13:41 12/16/20 14:21 12/16/20 14:21 General appearance: Present: mild distress, obese - EENT Eyes: Present: PERRL, EOM intact ENT: hearing intact - Neck Neck: Present: supple - Respiratory Respiratory effort: labored Respiratory: bilateral: diminished, rhonchi - Cardiovascular Rhythm: regular Heart Sounds: Present: S1 & S2 - Extremities Extremities: no ischemia Peripheral Pulses: within normal limits - Abdominal General gastrointestinal: soft, non-tender, non-distended - Integumentary Integumentary: Present: clear - Psychiatric Psychiatric: appropriate mood/affect, cooperative - Neurologic Neurologic: CNII-XII intact HEART Score - HEART Score Troponin: Troponin T 0.025 ng/mL (0.00-0.029) 12/16/20 04:28 Results - Labs CBC & Chem 7: 12/16/20 04:28 12/16/20 04:28 Labs: Laboratory Last Values WBC 8.5 K/mm3 (4.5-11.0) 12/16/20 04:28 RBC 5.24 M/mm3 (3.65-5.03) H 12/16/20 04:28 Hgb 15.8 gm/dl (10.1-14.3) H 12/16/20 04:28 Hct 45.9 % (30.3-42.9) H 12/16/20 04:28 MCV 88 fl (79-97) 12/16/20 04:28 MCH 30 pg (28-32) 12/16/20 04:28 MCHC 34 % (30-34) 12/16/20 04:28 RDW 14.0 % (13.2-15.2) 12/16/20 04:28 Plt Count 255 K/mm3 (140-440) 12/16/20 04:28 Lymph % (Auto) Avian Keeper 12/16/20 04:28 [place]dwell % (Auto) Avian Keeper 12/16/20 04:28 Eos % (Auto) Avian Keeper 12/16/20 04:28 Baso % (Auto) Avian Keeper 12/16/20 04:28 Lymph # (Auto) Avian Keeper 12/16/20 04:28 [place]dwell # (Auto) Avian Keeper 12/16/20 04:28 Eos # (Auto) Avian Keeper 12/16/20 04:28 Baso # (Auto) Avian Keeper 12/16/20 04:28 Seg Neutrophils % Avian Keeper 12/16/20 04:28 Seg Neutrophils # Avian Keeper 12/16/20 04:28 PT 15.6 Sec. (12.2-14.9) H 12/15/20 15:18 INR 1.19 (0.87-1.13) H 12/15/20 15:18 APTT 106.2 Sec. (24.2-36.6) H* 12/15/20 15:18 D-Dimer 247.74 ng/mlDDU (0-234) H 12/15/20 01:58 Heparin Anti-Xa Level 0.59 U.I./ml (0.3-0.7) 12/15/20 15:18 Sodium 130 mmol/L (137-145) L 12/16/20 04:28 Potassium 6.7 mmol/L (3.6-5.0) H* 12/16/20 04:28 Chloride 99.3 mmol/L (98-107) 12/16/20 04:28 Carbon Dioxide 12 mmol/L (22-30) L 12/16/20 04:28 Anion Gap 25 mmol/L 12/16/20 04:28 BUN 93 mg/dL (7-17) H 12/16/20 04:28 Creatinine 3.9 mg/dL (0.6-1.2) H 12/16/20 04:28 Estimated GFR 15 ml/min 12/16/20 04:28 BUN/Creatinine Ratio 24 % 12/16/20 04:28 Glucose 354 mg/dL (65-100) H 12/16/20 04:28 POC Glucose 291 mg/dL (70-105) H 12/16/20 12:41 Hemoglobin A1c 10.7 % (4-6) H 12/15/20 01:58 Lactic Acid 9.60 mmol/L (0.7-2.0) H* 12/15/20 08:13 Calcium 8.4 mg/dL (8.4-10.2) 12/16/20 04:28 Ferritin 1584.0 ng/mL (10.0-200.0) H 12/15/20 01:58 Total Bilirubin 0.20 mg/dL (0.1-1.2) 12/16/20 04:28 Direct Bilirubin < 0.2 mg/dL (0-0.2) 12/15/20 05:24 Indirect Bilirubin 0.0 mg/dL 12/15/20 05:24 AST 929 units/L (5-40) H 12/16/20 04:28 ALT 563 units/L (7-56) H 12/16/20 04:28 Alkaline Phosphatase 96 units/L (35-129) 12/16/20 04:28 Lactate Dehydrogenase 261 units/L (91-180) H 12/15/20 01:58 Troponin T 0.025 ng/mL (0.00-0.029) 12/16/20 04:28 C-Reactive Protein 0.60 mg/dL (0.00-1.30) 12/15/20 01:58 Total Protein 6.6 g/dL (6.3-8.2) D 12/16/20 04:28 Albumin 2.9 g/dL (3.9-5) L 12/16/20 04:28 Albumin/Globulin Ratio 0.8 % 12/16/20 04:28 Triglycerides 429 mg/dL (2-149) H 12/14/20 21:42 Cholesterol 147 mg/dL (50-199) 12/14/20 21:42 LDL Cholesterol Direct TNR 12/14/20 21:42 HDL Cholesterol 25 mg/dL (40-59) L 12/14/20 21:42 Cholesterol/HDL Ratio 5.88 % 12/14/20 21:42 Procalcitonin 0.83 ng/mL (<0.15) 12/15/20 01:58 Coronavirus (PCR) Positive (Negative) A 12/15/20 Unknown Microbiology: Microbiology 12/14/20 21:42 Peripheral/Venous Blood Culture - Preliminary NO GROWTH AFTER 24 HOURS 12/14/20 21:52 Peripheral/Venous Blood Culture - Preliminary NO GROWTH AFTER 24 HOURS Young/IV: Voiding Method Toilet Active Medications - Current Medications Current Medications: Generic Name Dose Route Start Last Admin Trade Name Freq PRN Reason Stop Dose Admin Acetaminophen 650 mg 12/15/20 00:07 Acetaminophen 325 Mg Tab PO Q4H PRN Pain MILD(1-3)/Fever >100.5/RECIO Al Hydrox/Mg Hydrox/Simethicone 30 ml 12/15/20 00:07 Alum-Mag Hydroxide-Simethicone 307-165-99tu/5ml Oral Liqd 30 Ml PO Q4H PRN Indigestion Amlodipine Besylate 10 mg 12/15/20 10:00 12/16/20 10:41 Amlodipine 10 Mg Tab PO 10 mg QDAY RONNA Administration Apixaban 5 mg 12/15/20 14:00 12/16/20 09:54 Apixaban 5 Mg Tab PO 5 mg Q12HR RONNA Administration Protocol Ascorbic Acid 500 mg 12/15/20 10:00 12/16/20 09:54 Ascorbic Acid 500 Mg Tab PO 500 mg QDAY RONNA Administration Aspirin 81 mg 12/15/20 14:00 12/16/20 09:54 Aspirin 81 Mg Tab Chew PO 81 mg QDAY RONNA Administration Cholecalciferol 1,000 unit 12/15/20 10:00 12/16/20 09:54 Cholecalciferol (Vit D3) 1000 Unit (25 Mcg) Tab PO 1,000 unit QDAY RONNA Administration Dexamethasone 6 mg 12/15/20 10:00 12/16/20 09:53 Dexamethasone 4 Mg/Ml Vial IV 12/24/20 10:01 6 mg DAILY RONNA Administration Famotidine 10 mg 12/16/20 10:00 12/16/20 09:54 Famotidine 10 Mg Tab PO 10 mg BID RONNA Administration Sodium Bicarbonate 150 meq/ 1,150 mls @ 125 mls/hr 12/16/20 12:00 12/16/20 12:48 Dextrose IV 125 mls/hr DIRECT RONNA Administration Ibuprofen 600 mg 12/15/20 00:07 Ibuprofen 600 Mg Tab PO Q6H PRN Pain, Mild (1-3) Insulin Human Lispro 0 unit 12/15/20 07:30 12/16/20 13:01 Insulin Lispro 100 Unit/Ml SUB-Q 3 unit ACHS RONNA Administration Protocol Magnesium Hydroxide 30 ml 12/15/20 00:07 Magnesium Hydroxide (Mom) Oral Liqd Udc PO Q4H PRN Constipation Metoprolol Tartrate 25 mg 12/15/20 01:00 12/16/20 09:54 Metoprolol Tartrate 25 Mg Tab PO 25 mg BID RONNA Administration Naloxone HCl 0.1 mg 12/15/20 00:07 Naloxone 0.4 Mg/1 Ml Inj IV Q2MIN PRN Res Rate </= 8 or 02 SAT < 92% Ondansetron HCl 4 mg 12/15/20 00:07 12/15/20 00:30 Ondansetron 4 Mg/2 Ml Inj IV 4 mg Q8H PRN Administration Nausea And Vomiting Senna 8.6 mg 12/15/20 00:07 Sennosides 8.6 Mg Tab PO Q12HR PRN Constipation Sodium Chloride 10 ml 12/15/20 10:00 12/16/20 09:54 Sodium Chloride 0.9% 10 Ml Flush Syringe IV 10 ml BID RONNA Administration Sodium Chloride 10 ml 12/15/20 00:07 Sodium Chloride 0.9% 10 Ml Flush Syringe IV PRN PRN LINE FLUSH Sodium Polystyrene Sulfonate 60 gm 12/16/20 13:00 12/16/20 13:04 Sodium Polystyrene 15 Gm/60 Ml Oral Liqd PO 12/16/20 15:00 60 gm ONCE RONNA Administration Trazodone HCl 50 mg 12/15/20 00:17 Trazodone 50 Mg Tab PO QHS PRN Insomnia Zinc Sulfate 220 mg 12/15/20 01:00 12/16/20 09:54 Zinc Sulfate 220 Mg Cap PO 220 mg BID RONNA Administration Zolpidem Tartrate 10 mg 12/15/20 22:00 12/15/20 22:25 Zolpidem 5 Mg Tab PO Not Given QHS RONNA
--- NOTE | 2020-12-16 15:03 | Progress Note ---
Assessment and Plan - Patient Problems (1) Acute respiratory failure with hypoxia Current Visit: Yes Status: Acute Plan to address problem: Supplemental oxygen, pulse oximetry, nebulizer therapy, noninvasive positive pressure ventilation as clinically indicated. (2) COVID-19 Current Visit: Yes Status: Acute Plan to address problem: Coronavirus protocol: IV steroid therapy, IV antibiotic therapy, contact precautions, isolation precaution, prone positioning while in bed, therapeutic anticoagulation. (3) Acute renal failure Current Visit: Yes Status: Acute Qualifiers: Acute renal failure type: with acute renal cortical necrosis Qualified Code(s): N17.1 - Acute kidney failure with acute cortical necrosis Plan to address problem: Monitor urine output every shift, continue medical management, IV fluid resuscitation therapy as clinically indicated, nephrology team consulted. Dialysis as per renal team. Repeat BMP in a.m., (4) Hypertension Current Visit: Yes Status: Chronic Qualifiers: Hypertension type: primary hypertension Qualified Code(s): I10 - Essential (primary) hypertension Plan to address problem: Monitor blood pressure every shift, continue medical management (5) Pulmonary embolism Current Visit: No Status: Acute Qualifiers: Chronicity: chronic Plan to address problem: Continue therapeutic anticoagulation, supportive care. (6) Diabetes Current Visit: No Status: Chronic Plan to address problem: Consistent carbohydrate diet, Accu-Chek, insulin protocol, hypoglycemia protocol (7) Obesity hypoventilation syndrome Current Visit: Yes Status: Acute Plan to address problem: Balanced diet, increase physical activity at discharge, outpatient pulmonary follow-up for sleep study. (8) DVT prophylaxis Current Visit: Yes Status: Acute Plan to address problem: SCD to bilateral lower extremities while in bed, continue therapeutic anticoagulation History Interval history: 55 YO Female HD #3 with acute hypoxemic respiratory failure secondary to coronavirus infection, history of pulmonary embolism, acute kidney injury, obesity hypoventilation syndrome. Patient convalesced well overnight. No reported nursing events. Patient again acknowledges continued shortness of breat h, generalized weakness, as well as malaise. Patient denies pain but states that she feels better than yesterday. Hospitalist Physical - Constitutional Vitals: Temp Pulse Resp BP Pulse Ox 98.7 F 92 H 29 H 151/70 94 12/16/20 08:00 12/16/20 13:41 12/16/20 13:41 12/16/20 14:21 12/16/20 14:21 General appearance: Present: mild distress, obese - EENT Eyes: Present: PERRL ENT: hearing intact - Neck Neck: Present: supple - Respiratory Respiratory effort: labored Respiratory: bilateral: diminished, rhonchi - Cardiovascular Rhythm: regular Heart Sounds: Present: S1 & S2 - Extremities Extremities: no ischemia Peripheral Pulses: within normal limits - Abdominal General gastrointestinal: soft, non-tender, non-distended - Integumentary Integumentary: Present: clear, dry - Psychiatric Psychiatric: appropriate mood/affect, cooperative - Neurologic Neurologic: CNII-XII intact HEART Score - HEART Score Troponin: Troponin T 0.025 ng/mL (0.00-0.029) 12/16/20 04:28 Results - Labs CBC & Chem 7: 12/16/20 04:28 12/16/20 04:28 Labs: Laboratory Last Values WBC 8.5 K/mm3 (4.5-11.0) 12/16/20 04:28 RBC 5.24 M/mm3 (3.65-5.03) H 12/16/20 04:28 Hgb 15.8 gm/dl (10.1-14.3) H 12/16/20 04:28 Hct 45.9 % (30.3-42.9) H 12/16/20 04:28 MCV 88 fl (79-97) 12/16/20 04:28 MCH 30 pg (28-32) 12/16/20 04:28 MCHC 34 % (30-34) 12/16/20 04:28 RDW 14.0 % (13.2-15.2) 12/16/20 04:28 Plt Count 255 K/mm3 (140-440) 12/16/20 04:28 Lymph % (Auto) College Professor 12/16/20 04:28 Clay % (Auto) College Professor 12/16/20 04:28 Eos % (Auto) College Professor 12/16/20 04:28 Baso % (Auto) College Professor 12/16/20 04:28 Lymph # (Auto) College Professor 12/16/20 04:28 Clay # (Auto) College Professor 12/16/20 04:28 Eos # (Auto) College Professor 12/16/20 04:28 Baso # (Auto) College Professor 12/16/20 04:28 Seg Neutrophils % College Professor 12/16/20 04:28 Seg Neutrophils # College Professor 12/16/20 04:28 PT 15.6 Sec. (12.2-14.9) H 12/15/20 15:18 INR 1.19 (0.87-1.13) H 12/15/20 15:18 APTT 106.2 Sec. (24.2-36.6) H* 12/15/20 15:18 D-Dimer 247.74 ng/mlDDU (0-234) H 12/15/20 01:58 Heparin Anti-Xa Level 0.59 U.I./ml (0.3-0.7) 12/15/20 15:18 Sodium 130 mmol/L (137-145) L 12/16/20 04:28 Potassium 6.7 mmol/L (3.6-5.0) H* 12/16/20 04:28 Chloride 99.3 mmol/L (98-107) 12/16/20 04:28 Carbon Dioxide 12 mmol/L (22-30) L 12/16/20 04:28 Anion Gap 25 mmol/L 12/16/20 04:28 BUN 93 mg/dL (7-17) H 12/16/20 04:28 Creatinine 3.9 mg/dL (0.6-1.2) H 12/16/20 04:28 Estimated GFR 15 ml/min 12/16/20 04:28 BUN/Creatinine Ratio 24 % 12/16/20 04:28 Glucose 354 mg/dL (65-100) H 12/16/20 04:28 POC Glucose 291 mg/dL (70-105) H 12/16/20 12:41 Hemoglobin A1c 10.7 % (4-6) H 12/15/20 01:58 Lactic Acid 9.60 mmol/L (0.7-2.0) H* 12/15/20 08:13 Calcium 8.4 mg/dL (8.4-10.2) 12/16/20 04:28 Ferritin 1584.0 ng/mL (10.0-200.0) H 12/15/20 01:58 Total Bilirubin 0.20 mg/dL (0.1-1.2) 12/16/20 04:28 Direct Bilirubin < 0.2 mg/dL (0-0.2) 12/15/20 05:24 Indirect Bilirubin 0.0 mg/dL 12/15/20 05:24 AST 929 units/L (5-40) H 12/16/20 04:28 ALT 563 units/L (7-56) H 12/16/20 04:28 Alkaline Phosphatase 96 units/L (35-129) 12/16/20 04:28 Lactate Dehydrogenase 261 units/L (91-180) H 12/15/20 01:58 Troponin T 0.025 ng/mL (0.00-0.029) 12/16/20 04:28 C-Reactive Protein 0.60 mg/dL (0.00-1.30) 12/15/20 01:58 Total Protein 6.6 g/dL (6.3-8.2) D 12/16/20 04:28 Albumin 2.9 g/dL (3.9-5) L 12/16/20 04:28 Albumin/Globulin Ratio 0.8 % 12/16/20 04:28 Triglycerides 429 mg/dL (2-149) H 12/14/20 21:42 Cholesterol 147 mg/dL (50-199) 12/14/20 21:42 LDL Cholesterol Direct TNR 12/14/20 21:42 HDL Cholesterol 25 mg/dL (40-59) L 12/14/20 21:42 Cholesterol/HDL Ratio 5.88 % 12/14/20 21:42 Procalcitonin 0.83 ng/mL (<0.15) 12/15/20 01:58 Coronavirus (PCR) Positive (Negative) A 12/15/20 Unknown Microbiology: Microbiology 12/14/20 21:42 Peripheral/Venous Blood Culture - Preliminary NO GROWTH AFTER 24 HOURS 12/14/20 21:52 Peripheral/Venous Blood Culture - Preliminary NO GROWTH AFTER 24 HOURS Young/IV: Voiding Method Toilet Active Medications - Current Medications Current Medications: Generic Name Dose Route Start Last Admin Trade Name Freq PRN Reason Stop Dose Admin Acetaminophen 650 mg 12/15/20 00:07 Acetaminophen 325 Mg Tab PO Q4H PRN Pain MILD(1-3)/Fever >100.5/RECIO Al Hydrox/Mg Hydrox/Simethicone 30 ml 12/15/20 00:07 Alum-Mag Hydroxide-Simethicone [id number]/5ml Oral Liqd 30 Ml PO Q4H PRN Indigestion Amlodipine Besylate 10 mg 12/15/20 10:00 12/16/20 10:41 Amlodipine 10 Mg Tab PO 10 mg QDAY RONNA Administration Apixaban 5 mg 12/15/20 14:00 12/16/20 09:54 Apixaban 5 Mg Tab PO 5 mg Q12HR RONNA Administration Protocol Ascorbic Acid 500 mg 12/15/20 10:00 12/16/20 09:54 Ascorbic Acid 500 Mg Tab PO 500 mg QDAY RONNA Administration Aspirin 81 mg 12/15/20 14:00 12/16/20 09:54 Aspirin 81 Mg Tab Chew PO 81 mg QDAY RONNA Administration Cholecalciferol 1,000 unit 12/15/20 10:00 12/16/20 09:54 Cholecalciferol (Vit D3) 1000 Unit (25 Mcg) Tab PO 1,000 unit QDAY RONNA Administration Dexamethasone 6 mg 12/15/20 10:00 12/16/20 09:53 Dexamethasone 4 Mg/Ml Vial IV 12/24/20 10:01 6 mg DAILY RONNA Administration Famotidine 10 mg 12/16/20 10:00 12/16/20 09:54 Famotidine 10 Mg Tab PO 10 mg BID RONNA Administration Sodium Bicarbonate 150 meq/ 1,150 mls @ 125 mls/hr 12/16/20 12:00 12/16/20 12:48 Dextrose IV 125 mls/hr DIRECT RONNA Administration Ibuprofen 600 mg 12/15/20 00:07 Ibuprofen 600 Mg Tab PO Q6H PRN Pain, Mild (1-3) Insulin Human Lispro 0 unit 12/15/20 07:30 12/16/20 13:01 Insulin Lispro 100 Unit/Ml SUB-Q 3 unit ACHS RONNA Administration Protocol Magnesium Hydroxide 30 ml 12/15/20 00:07 Magnesium Hydroxide (Mom) Oral Liqd Udc PO Q4H PRN Constipation Metoprolol Tartrate 25 mg 12/15/20 01:00 12/16/20 09:54 Metoprolol Tartrate 25 Mg Tab PO 25 mg BID RONNA Administration Naloxone HCl 0.1 mg 12/15/20 00:07 Naloxone 0.4 Mg/1 Ml Inj IV Q2MIN PRN Res Rate </= 8 or 02 SAT < 92% Ondansetron HCl 4 mg 12/15/20 00:07 12/15/20 00:30 Ondansetron 4 Mg/2 Ml Inj IV 4 mg Q8H PRN Administration Nausea And Vomiting Senna 8.6 mg 12/15/20 00:07 Sennosides 8.6 Mg Tab PO Q12HR PRN Constipation Sodium Chloride 10 ml 12/15/20 10:00 12/16/20 09:54 Sodium Chloride 0.9% 10 Ml Flush Syringe IV 10 ml BID RONNA Administration Sodium Chloride 10 ml 12/15/20 00:07 Sodium Chloride 0.9% 10 Ml Flush Syringe IV PRN PRN LINE FLUSH Trazodone HCl 50 mg 12/15/20 00:17 Trazodone 50 Mg Tab PO QHS PRN Insomnia Zinc Sulfate 220 mg 12/15/20 01:00 12/16/20 09:54 Zinc Sulfate 220 Mg Cap PO 220 mg BID RONNA Administration Zolpidem Tartrate 10 mg 12/15/20 22:00 12/15/20 22:25 Zolpidem 5 Mg Tab PO Not Given QHS RONNA
--- NOTE | 2020-12-16 16:39 | Progress Note ---
Assessment and Plan Cultures: Blood culture no growth so far COVID positive as outpatient A/P: 55-year-old female past medical history diabetes, hypertension, pulmonary embolism presented to hospital with COVID-19 #COVID-19 pneumonia: Patient presented with a week of symptoms, chest x-ray with diffuse bilateral infiltrates, admission O2 sats on room air. #Acute hypoxemic respiratory failure: Likely secondary to COVID-19 infection. Currently on 2L NC #JULY: Renally dose antibiotics, not currently on candidate for remdesivir #Diabetes: tight glycemic control for best outcomes. Recs: -Dexamethasone 6 mg IV/PO daily for 10 days -Obtain q48-72h inflammatory markers - ferritin, Ddimer, CRP, LDH -Anticoagulation per hospital protocol -Proning as able Thank you for the consult, we will continue to follow. Carolann Grover MD [facility] O: [phone] F: [phone] Subjective Date of service: 12/16/20 Interval history: Afebrile, normal white count. Feels improved. Objective - Exam Narrative Exam: Physical exam deferred to reduce risk of transmission of COVID-19. Please refer to primary team's note. - Constitutional Vitals: Vital Signs Temp Pulse Resp BP Pulse Ox 98.7 F 92 H 29 H 149/68 98 12/16/20 08:00 12/16/20 13:41 12/16/20 13:41 12/16/20 15:11 12/16/20 15:11 Temperature -Last 24 Hours Temperature 98.7 F - Labs CBC & Chem 7: 12/16/20 04:28 12/16/20 04:28 Labs: Abnormal lab results 12/15/20 12/15/20 12/15/20 Range/Units 15:18 22:10 Unknown RBC (3.65-5.03) M/mm3 Hgb (10.1-14.3) gm/dl Hct (30.3-42.9) % PT 15.6 H (12.2-14.9) Sec. INR 1.19 H (0.87-1.13) APTT 106.2 H* (24.2-36.6) Sec. Sodium (137-145) mmol/L Potassium (3.6-5.0) mmol/L Carbon Dioxide (22-30) mmol/L BUN (7-17) mg/dL Creatinine (0.6-1.2) mg/dL Glucose (65-100) mg/dL POC Glucose 378 H (70-105) mg/dL AST (5-40) units/L ALT (7-56) units/L Albumin (3.9-5) g/dL Coronavirus (PCR) Positive A (Negative) 12/16/20 12/16/20 12/16/20 Range/Units 04:28 04:28 07:09 RBC 5.24 H (3.65-5.03) M/mm3 Hgb 15.8 H (10.1-14.3) gm/dl Hct 45.9 H (30.3-42.9) % PT (12.2-14.9) Sec. INR (0.87-1.13) APTT (24.2-36.6) Sec. Sodium 130 L (137-145) mmol/L Potassium 6.7 H* (3.6-5.0) mmol/L Carbon Dioxide 12 L (22-30) mmol/L BUN 93 H (7-17) mg/dL Creatinine 3.9 H (0.6-1.2) mg/dL Glucose 354 H (65-100) mg/dL POC Glucose 336 H (70-105) mg/dL AST 929 H (5-40) units/L ALT 563 H (7-56) units/L Albumin 2.9 L (3.9-5) g/dL Coronavirus (PCR) (Negative) 12/16/20 Range/Units 12:41 RBC (3.65-5.03) M/mm3 Hgb (10.1-14.3) gm/dl Hct (30.3-42.9) % PT (12.2-14.9) Sec. INR (0.87-1.13) APTT (24.2-36.6) Sec. Sodium (137-145) mmol/L Potassium (3.6-5.0) mmol/L Carbon Dioxide (22-30) mmol/L BUN (7-17) mg/dL Creatinine (0.6-1.2) mg/dL Glucose (65-100) mg/dL POC Glucose 291 H (70-105) mg/dL AST (5-40) units/L ALT (7-56) units/L Albumin (3.9-5) g/dL Coronavirus (PCR) (Negative)
[2020-12-16] MEDS: ZOLPIDEM 5 MG TAB PO SCH (22:43)
[2020-12-17] MEDS: SODIUM BICARBONATE 150 MEQ in DEXTROSE 5% IN WATER 1,000 ML IV SCH (06:32)
--- NOTE | 2020-12-17 06:58 | Event Note ---
Date: 12/17/20 Discussed with patient and she mentioned that she is seen by Dr Horton as an outpatient. Will send consult to him at this time.
[2020-12-17 08:40] LABS: Hematocrit 38.8 % (30.3-42.9); Mean Corpuscular HGB Conc 34 % (30-34); Mean Corpuscular Volume 86 fl (79-97); Platelet Count 284 K/mm3 (140-440); Red Blood Count 4.53 M/mm3 (3.65-5.03); Red Cell Distribution Width 13.9 % (13.2-15.2)
[2020-12-17] MEDS: INSULIN LISPRO 100 UNIT/ML SUB-Q SCH ×4 (09:30→22:15)
[2020-12-17] MEDS: FAMOTIDINE 10 MG TAB PO SCH ×2 (09:31→22:22)
[2020-12-17] MEDS: ASCORBIC ACID 500 MG TAB PO SCH (09:31)
[2020-12-17] MEDS: ASPIRIN 81 MG TAB CHEW PO SCH (09:31)
[2020-12-17] MEDS: METOPROLOL TARTRATE 25 MG TAB PO SCH ×2 (09:31→22:22)
[2020-12-17] MEDS: amLODIPine 10 MG TAB PO SCH (09:31)
[2020-12-17] MEDS: CHOLECALCIFEROL (VIT D3) 1000 UNIT (25 mcg) TAB PO SCH (09:31)
[2020-12-17] MEDS: APIXABAN 5 MG TAB PO SCH ×2 (09:31→22:20)
[2020-12-17] MEDS: ZINC SULFATE 220 MG CAP PO SCH ×2 (09:31→22:20)
[2020-12-17] MEDS: dexAMETHasone 4 MG/ML VIAL IV SCH (09:31)
--- NOTE | 2020-12-17 09:33 | Consultation ---
History of Present Illness - Reason for Consult Consult date: 12/17/20 acute renal failure, chronic renal failure, hyperkalemia - History of Present Illness The patient is a 55 YO female known to our practice with history significant for Morbid Obesity, Hypertension, DM type 2 and CKD stage 3b who presented to [facility] ED 12/14 via EMS complaining of generalized weakness, chest pain, shortness of b reath, nausea, vomiting and diarrhea for about 5 days. Patient stated that she tested positive for COVID-19. Patient also reports abdominal pain. CT chest showed patchy b/l PNA. Patient is being treated for COVID-19 pneumonia at this time. Labs significant for K 6.7, Creat 3.9, BUN 93 and elevated ALT & AST. Nephrology was consulted for treatment of JULY and hyperkalemia. Past History Past Medical History: diabetes, hypertension, pulmonary embolism, renal failure Past Surgical History: No surgical history Social history: lives with family Family history: diabetes, hypertension Medications and Allergies Allergies Allergy/AdvReac Type Severity Reaction Status Date / Time No Known Allergies Allergy Unverified 06/06/14 17:09 Home Medications Medication Instructions Recorded Confirmed Last Taken Type Zolpidem (Nf) [Ambien (Nf)] 10 mg PO QHS 06/06/14 12/16/20 Unknown History glyBURIDE [Diabeta] 5 mg PO DAILY 06/06/14 12/16/20 Unknown History metFORMIN [Glucophage] 1,000 mg PO BID 06/06/14 12/16/20 Unknown History Enoxaparin [Lovenox] 110 mg SQ BID #10 syringe 06/10/14 12/16/20 Unknown Rx Metoprolol [Lopressor TAB] 25 mg PO BID #60 tablet 06/10/14 12/16/20 Unknown Rx Warfarin [Coumadin] 7.5 mg PO DAILY@1700 #30 tablet 06/10/14 12/16/20 Unknown Rx amLODIPine 10 mg PO QDAY #30 tablet 06/10/14 12/16/20 Unknown Rx Active Meds: Active Medications Acetaminophen (Acetaminophen 325 Mg Tab) 650 mg PO Q4H PRN PRN Reason: Pain MILD(1-3)/Fever >100.5/RECIO Al Hydrox/Mg Hydrox/Simethicone (Alum-Mag Hydroxide-Simethicone [id number]/5ml Oral Liqd 30 Ml) 30 ml PO Q4H PRN PRN Reason: Indigestion Amlodipine Besylate (Amlodipine 10 Mg Tab) 10 mg PO QDAY [facility] Last Admin: 12/17/20 09:31 Dose: 10 mg Documented by: Apixaban (Apixaban 5 Mg Tab) 5 mg PO Q12HR [facility]; Protocol Last Admin: 12/17/20 09:31 Dose: 5 mg Documented by: Ascorbic Acid (Ascorbic Acid 500 Mg Tab) 500 mg PO QDAY [facility] Last Admin: 12/17/20 09:31 Dose: 500 mg Documented by: Aspirin (Aspirin 81 Mg Tab Chew) 81 mg PO QDAY [facility] Last Admin: 12/17/20 09:31 Dose: 81 mg Documented by: Cholecalciferol (Cholecalciferol (Vit D3) 1000 Unit (25 Mcg) Tab) 1,000 unit PO QDAY [facility] Last Admin: 12/17/20 09:31 Dose: 1,000 unit Documented by: Dexamethasone (Dexamethasone 4 Mg/Ml Vial) 6 mg IV DAILY [facility] Stop: 12/24/20 10:01 Last Admin: 12/17/20 09:31 Dose: 6 mg Documented by: Famotidine (Famotidine 10 Mg Tab) 10 mg PO BID [facility] Last Admin: 12/17/20 09:31 Dose: 10 mg Documented by: Sodium Bicarbonate 150 meq/ (Dextrose) 1,150 mls @ 125 mls/hr IV DIRECT [facility] Last Admin: 12/17/20 06:32 Dose: 125 mls/hr Documented by: Ibuprofen (Ibuprofen 600 Mg Tab) 600 mg PO Q6H PRN PRN Reason: Pain, Mild (1-3) Insulin Human Lispro (Insulin Lispro 100 Unit/Ml) 0 unit SUB-Q ACHS [facility]; Protocol Last Admin: 12/17/20 09:30 Dose: 4 unit Documented by: Magnesium Hydroxide (Magnesium Hydroxide (Mom) Oral Liqd Udc) 30 ml PO Q4H PRN PRN Reason: Constipation Metoprolol Tartrate (Metoprolol Tartrate 25 Mg Tab) 25 mg PO BID [facility] Last Admin: 12/17/20 09:31 Dose: 25 mg Documented by: Naloxone HCl (Naloxone 0.4 Mg/1 Ml Inj) 0.1 mg IV Q2MIN PRN PRN Reason: Res Rate </= 8 or 02 SAT < 92% Ondansetron HCl (Ondansetron 4 Mg/2 Ml Inj) 4 mg IV Q8H PRN PRN Reason: Nausea And Vomiting Last Admin: 12/15/20 00:30 Dose: 4 mg Documented by: Senna (Sennosides 8.6 Mg Tab) 8.6 mg PO Q12HR PRN PRN Reason: Constipation Sodium Chloride (Sodium Chloride 0.9% 10 Ml Flush Syringe) 10 ml IV BID [facility] Last Admin: 12/17/20 09:32 Dose: 10 ml Documented by: Sodium Chloride (Sodium Chloride 0.9% 10 Ml Flush Syringe) 10 ml IV PRN PRN PRN Reason: LINE FLUSH Trazodone HCl (Trazodone 50 Mg Tab) 50 mg PO QHS PRN PRN Reason: Insomnia Zinc Sulfate (Zinc Sulfate 220 Mg Cap) 220 mg PO BID [facility] Last Admin: 12/17/20 09:31 Dose: 220 mg Documented by: Zolpidem Tartrate (Zolpidem 5 Mg Tab) 10 mg PO QHS [facility] Last Admin: 12/16/20 22:43 Dose: Not Given Documented by: Exam - Vital Signs Vital signs: Vital Signs Temp Pulse Resp BP Pulse Ox 97.5 F L 114 H 20 115/88 100 12/14/20 21:10 12/14/20 21:10 12/14/20 21:10 12/14/20 21:10 12/14/20 21:10 Results - Lab Results 12/17/20 07:54 12/16/20 18:53 Most recent lab results Calcium 8.4 mg/dL (8.4-10.2) 12/16/20 04:28 Assessment and Plan 1. Acute kidney injury: JULY superimposed on CKD in the setting of volume depletion +/- Covid nephropathy. Urine studies and Renal US ordered. Continue IV fluids. Monitor renal function. Creatinine level continue to increase. Patient on prn Ibuprofen, stopped. Avoid nephrotoxic agents. Meds dosage based on GFR. Monitor for [employer] needs. No labs from today. CMP ordered, await results. 2. FEN: Hyperkalemia, s/p kayexalate, monitor. Anion-gap metabolic acidosis, on bicarb drip, may need HD, monitor. Hyponatremia, monitor. Monitor lytes and volume status. 3. Acute respiratory failure with hypoxemia: 2/2 Covid PNA. Supplemental O2 via NC O2. 4. Covid PNA: Followed by ID. 5. Elevated ALT & AST: Trend. 6. DM type 2, uncontrolled: On SSI. Lantus added. 7. Hypertension: BP controlled. Subjective: Patient was seen and examined at the bedside. Examination: General appearance: well-developed, appears stated age, obese, on RA HEENT: atraumatic, VILMA Neck: trachea midline Respiratory: ctab Heart: S1S2, regular, no murmur Abdomen: soft, bowel sounds heard, NT Integumentary: no obvious rash Neurologic: AO, non-focal Ext: edema
--- NOTE | 2020-12-17 10:16 | Progress Note ---
Assessment and Plan COVID 19 infection Renal failure with hyperkalemia Liver transaminase Diabetes Prior CVA Hypertension Will repeat a 12 lead ECG. Subjective Date of service: 12/17/20 Interval history: Patient is resting in bed. Denies chest pain. Objective Vital Signs Temp Pulse Resp BP BP Pulse Ox 12/17/20 09:31 92 H 12/17/20 05:54 98.8 F 92 H 122/84 12/16/20 22:44 92 H 123/75 12/16/20 19:00 94 12/16/20 16:41 131/77 91 12/16/20 16:31 131/77 95 12/16/20 16:21 131/77 94 12/16/20 16:11 126/78 92 12/16/20 16:01 126/78 93 12/16/20 15:51 131/77 92 12/16/20 15:47 131/77 91 12/16/20 15:30 131/77 97 12/16/20 15:21 144/65 97 12/16/20 15:20 98.8 F 88 16 113/77 97 12/16/20 15:11 149/68 98 12/16/20 15:01 149/68 98 12/16/20 14:51 144/65 98 12/16/20 14:41 144/65 95 12/16/20 14:31 144/65 93 12/16/20 14:21 151/70 94 12/16/20 14:11 151/70 89 12/16/20 14:01 151/70 95 12/16/20 13:51 135/76 95 12/16/20 13:41 92 H 29 H 135/76 96 12/16/20 13:31 91 H 28 H 135/76 94 12/16/20 13:21 90 27 H 141/82 98 12/16/20 13:11 93 H 20 128/82 95 12/16/20 13:01 93 H 27 H 128/82 97 12/16/20 12:51 99 H 24 128/82 96 12/16/20 12:41 92 H 24 128/82 97 12/16/20 12:31 90 27 H 128/82 97 12/16/20 12:21 104 H 14 128/82 92 12/16/20 12:11 101 H 14 128/82 92 12/16/20 12:01 100 H 23 128/82 94 12/16/20 11:51 99 H 30 H 142/73 93 12/16/20 11:41 100 H 34 H 142/73 97 12/16/20 11:31 116 H 23 142/73 92 12/16/20 11:21 99 H 19 134/75 94 12/16/20 11:11 101 H 22 134/75 92 12/16/20 11:01 109 H 23 134/75 93 12/16/20 10:51 100 H 21 111/72 95 12/16/20 10:41 109 H 25 H 111/72 92 12/16/20 10:31 101 H 28 H 111/72 95 12/16/20 10:21 103 H 28 H 98/76 93 - Physical Examination Narrative exam: Deferred due to COVID 19 infection. General: No Apparent Distress Cardiac: Positive: Reg Rate and Rhythm Neuro: Positive: Grossly Intact - Labs and Meds CBC 12/17/20 Range/Units 07:54 WBC 14.1 H (4.5-11.0) K/mm3 RBC 4.53 (3.65-5.03) M/mm3 Hgb 13.0 (10.1-14.3) gm/dl Hct 38.8 D (30.3-42.9) % Plt Count 284 (140-440) K/mm3 Comprehensive Metabolic Panel 12/16/20 Range/Units 18:53 Potassium 6.0 H (3.6-5.0) mmol/L
--- NOTE | 2020-12-17 10:49 | Progress Note ---
Assessment and Plan Cultures: Blood culture no growth so far COVID positive as outpatient A/P: 55-year-old female past medical history diabetes, hypertension, pulmonary embolism presented to hospital with COVID-19 #COVID-19 pneumonia: Patient presented with a week of symptoms, chest x-ray with diffuse bilateral infiltrates, admission O2 sats on room air. #Acute hypoxemic respiratory failure: Likely secondary to COVID-19 infection. Currently on 2L NC #JULY: Renally dose antibiotics, not currently on candidate for remdesivir #Diabetes: tight glycemic control for best outcomes. Recs: -Dexamethasone 6 mg IV/PO daily for 10 days -Obtain q48-72h inflammatory markers - ferritin, Ddimer, CRP, LDH -Anticoagulation per hospital protocol -Proning as able Thank you for the consult, we will continue to follow. Carolann Grover MD [facility] O: [phone] F: [phone] Subjective Date of service: 12/17/20 Interval history: Afebrile, white count 14.1 which is increased from previous. Objective - Exam Narrative Exam: Physical exam deferred to reduce risk of transmission of COVID-19. Please refer to primary team's note. - Constitutional Vitals: Vital Signs Temp Pulse Resp BP Pulse Ox 98.8 F 92 H 16 122/84 94 12/17/20 05:54 12/17/20 09:31 12/16/20 15:20 12/17/20 05:54 12/16/20 19:00 Temperature -Last 24 Hours Temperature 98.8 F Temperature 98.8 F - Labs CBC & Chem 7: 12/17/20 07:54 12/16/20 18:53 Labs: Abnormal lab results 12/16/20 12/16/20 12/16/20 Range/Units 12:41 16:53 18:53 WBC (4.5-11.0) K/mm3 Potassium 6.0 H (3.6-5.0) mmol/L POC Glucose 291 H 355 H (70-105) mg/dL 12/16/20 12/17/20 12/17/20 Range/Units 21:38 07:54 08:10 WBC 14.1 H (4.5-11.0) K/mm3 Potassium (3.6-5.0) mmol/L POC Glucose 327 H 323 H (70-105) mg/dL
--- NOTE | 2020-12-17 12:24 | Ultrasound Report ---
ULTRASOUND RENAL INDICATION / CLINICAL INFORMATION: Acute renal failure. COMPARISON: None available. FINDINGS: RIGHT KIDNEY: Length = 8.7 cm. - Echogenicity: Increased. - Cortical Thickness: Normal. - Hydronephrosis: None. - Cyst / Mass: None. - Stones: None seen. LEFT KIDNEY: Length = 8.6 cm. - Echogenicity: Increased. - Cortical Thickness: Normal. - Hydronephrosis: None. - Cyst / Mass: None. - Stones: None seen. URINARY BLADDER: No significant abnormality. FREE FLUID: None. ADDITIONAL FINDINGS: None. IMPRESSION: 1. The kidneys measure small bilaterally with increased cortical echogenicity, ultimately nonspecific but can be seen with medical renal disease. Scribed by: Fatoumata Torres RDMS, RVT Scribed: 12/17/2020 11:09 AM I have reviewed the images, agree with this report, and edited this report as needed. Signer Name: Pop Saha MD Signed: 12/17/2020 12:19 PM Workstation Name: [id number]
--- NOTE | 2020-12-17 15:45 | Progress Note ---
Assessment and Plan Acute hypoxemic respiratory failure COVID-19 Acute renal failure Acute hyperkalemia Hypertension Pulmonary embolism Diabetes type II - Remdesivir as per ID/Pulmonary developed protocols (not a candidate re: JULY) - continue systemic steroids for severe COVID-19 infection - follow repeat COVID tests results - zinc and vitamin C supplementation - Monitor inflammatory markers per facility protocol - ferritin, D-dimer, CRP - therapeutic anticoagulation per system Protocol based on d-dimer and clinical considerations (Has VTE and on Eliquis) - Continue contact and airborne isolation - continue to wean supplemental oxygen to keep O2 sats > 92% - continue Bronchodilators (SUSANA) with pulm hygiene per RT - azotemia per nephrology team - continue to avoid nephrotoxins, renally dose all medications - continue mobility protocols to prevent pressure ulcers - PT/OT as tolerated - Wound care per RN/WCT - continue accuchecks with glycemic control per SSI for target blood glucose < 180 mg/dL - Smoking cessation strongly counseled at the bedside - home oxygen evaluation at discharge - GI & VTE prophylaxis - Flu & pneumovax per protocol - Pulmonary out patient follow up for PFTs and optimization of respiratory status - continue other care per attending / other consultants - prn analgesia per pain score ... re-evaluate in am & prn Subjective Date of service: 12/17/20 Principal diagnosis: Ac. hypoxemic resp. failure; COVID-19 infxn; JULY; Ac Pulm embolism; DM II Interval history: Patient is seen today for: Acute hypoxemic respiratory failure; COVID-19 infxn; JULY; Acute Pulmonary embolism; DM II Seen and examined at bedside; 24hour events reviewed; nursing and respiratory care staff consulted; no adverse overnight events reported to me; resting in bed; on room air now; denies acute chest pain; no N/V/F/C; denies cough Objective Vital Signs - 12hr 12/17/20 12/17/20 12/17/20 05:54 09:31 11:09 Temperature 98.8 F Pulse Rate 92 H 92 H Respiratory Rate Blood Pressure Blood Pressure 122/84 [Left] O2 Sat by Pulse 96 Oximetry 12/17/20 11:22 Temperature 97.8 F Pulse Rate 92 H Respiratory 16 Rate Blood Pressure 105/79 Blood Pressure [Left] O2 Sat by Pulse 97 Oximetry Constitutional: no acute distress, alert, other (middle aged obese female with normal respiratory effort at rest) Eyes: non-icteric ENT: oropharynx moist Neck: supple, no lymphadenopathy, no JVD, other (large circumference) Effort: mildly labored Ascultation: Bilateral: diminished breath sounds, rhonchi (bases) Percussion: Bilateral: not dull Cardiovascular: regular rate and rhythm Gastrointestinal: normoactive bowel sounds, soft, non-tender, non-distended (protuberant) Integumentary: normal Extremities: no cyanosis, no edema, pulses normal, no ischemia or petechiae Neurologic: normal mental status, non-focal exam, pupils equal and round, CN II- XII normal, motor strength normal and Psychiatric: mood appropriate, affect normal CBC and BMP: 12/17/20 07:54 12/16/20 18:53 ABG, PT/INR, D-dimer: PT/INR, D-dimer PT 15.6 Sec. (12.2-14.9) H 12/15/20 15:18 INR 1.19 (0.87-1.13) H 12/15/20 15:18 D-Dimer 247.74 ng/mlDDU (0-234) H 12/15/20 01:58 Abnormal lab findings: Abnormal Labs 12/14/20 12/14/20 12/14/20 21:42 21:42 21:42 WBC RBC 5.30 H Hgb 15.9 H Hct 45.8 H MCHC 35 H PT INR APTT D-Dimer 251.44 H Sodium 129 L Potassium 5.6 H Chloride 96.0 L Carbon Dioxide 14 L BUN 58 H Creatinine 3.1 H Glucose 229 H POC Glucose Hemoglobin A1c Lactic Acid Ferritin AST ALT Lactate Dehydrogenase Troponin T 0.034 H Total Protein Albumin Triglycerides 429 H HDL Cholesterol 25 L Coronavirus (PCR) 12/14/20 12/15/20 12/15/20 21:42 01:58 01:58 WBC RBC Hgb Hct MCHC PT INR APTT D-Dimer Sodium Potassium Chloride Carbon Dioxide BUN Creatinine Glucose 265 H POC Glucose Hemoglobin A1c Lactic Acid 3.60 H* 4.00 H* Ferritin AST ALT Lactate Dehydrogenase 261 H Troponin T 0.057 H D Total Protein Albumin Triglycerides HDL Cholesterol Coronavirus (PCR) 12/15/20 12/15/20 12/15/20 01:58 01:58 01:58 WBC RBC Hgb Hct MCHC PT INR APTT D-Dimer 247.74 H Sodium Potassium Chloride Carbon Dioxide BUN Creatinine Glucose POC Glucose Hemoglobin A1c 10.7 H Lactic Acid Ferritin 1584.0 H AST ALT Lactate Dehydrogenase Troponin T Total Protein Albumin Triglycerides HDL Cholesterol Coronavirus (PCR) 12/15/20 12/15/20 12/15/20 05:24 05:24 08:13 WBC RBC Hgb Hct MCHC PT INR APTT D-Dimer Sodium Potassium Chloride Carbon Dioxide BUN Creatinine Glucose POC Glucose Hemoglobin A1c Lactic Acid 7.70 H* 9.60 H* Ferritin AST 58 H ALT Lactate Dehydrogenase Troponin T Total Protein 5.4 L Albumin 3.0 L Triglycerides HDL Cholesterol Coronavirus (PCR) 12/15/20 12/15/20 12/15/20 13:15 15:18 15:18 WBC RBC Hgb 14.5 H Hct 43.7 H MCHC PT 15.6 H INR 1.19 H APTT 106.2 H* D-Dimer Sodium Potassium Chloride Carbon Dioxide BUN Creatinine Glucose POC Glucose 310 H Hemoglobin A1c Lactic Acid Ferritin AST ALT Lactate Dehydrogenase Troponin T Total Protein Albumin Triglycerides HDL Cholesterol Coronavirus (PCR) 12/15/20 12/15/20 12/15/20 15:18 22:10 Unknown WBC RBC Hgb Hct MCHC PT INR APTT D-Dimer Sodium Potassium Chloride Carbon Dioxide BUN Creatinine 3.7 H Glucose POC Glucose 378 H Hemoglobin A1c Lactic Acid Ferritin AST ALT Lactate Dehydrogenase Troponin T Total Protein Albumin Triglycerides HDL Cholesterol Coronavirus (PCR) Positive A 12/16/20 12/16/20 12/16/20 04:28 04:28 07:09 WBC RBC 5.24 H Hgb 15.8 H Hct 45.9 H MCHC PT INR APTT D-Dimer Sodium 130 L Potassium 6.7 H* Chloride Carbon Dioxide 12 L BUN 93 H Creatinine 3.9 H Glucose 354 H POC Glucose 336 H Hemoglobin A1c Lactic Acid Ferritin AST 929 H ALT 563 H Lactate Dehydrogenase Troponin T Total Protein Albumin 2.9 L Triglycerides HDL Cholesterol Coronavirus (PCR) 12/16/20 12/16/20 12/16/20 12:41 16:53 18:53 WBC RBC Hgb Hct MCHC PT INR APTT D-Dimer Sodium Potassium 6.0 H Chloride Carbon Dioxide BUN Creatinine Glucose POC Glucose 291 H 355 H Hemoglobin A1c Lactic Acid Ferritin AST ALT Lactate Dehydrogenase Troponin T Total Protein Albumin Triglycerides HDL Cholesterol Coronavirus (PCR) 12/16/20 12/17/20 12/17/20 21:38 07:54 08:10 WBC 14.1 H RBC Hgb Hct MCHC PT INR APTT D-Dimer Sodium Potassium Chloride Carbon Dioxide BUN Creatinine Glucose POC Glucose 327 H 323 H Hemoglobin A1c Lactic Acid Ferritin AST ALT Lactate Dehydrogenase Troponin T Total Protein Albumin Triglycerides HDL Cholesterol Coronavirus (PCR) 12/17/20 12:56 WBC RBC Hgb Hct MCHC PT INR APTT D-Dimer Sodium Potassium Chloride Carbon Dioxide BUN Creatinine Glucose POC Glucose 331 H Hemoglobin A1c Lactic Acid Ferritin AST ALT Lactate Dehydrogenase Troponin T Total Protein Albumin Triglycerides HDL Cholesterol Coronavirus (PCR) Chest x-ray: image reviewed Allied health notes reviewed: nursing
--- NOTE | 2020-12-17 20:14 | Progress Note ---
Assessment and Plan - Patient Problems (1) Acute respiratory failure with hypoxia Current Visit: Yes Status: Acute Plan to address problem: Supplemental oxygen, pulse oximetry, nebulizer therapy, noninvasive positive pressure ventilation as clinically indicated. (2) COVID-19 Current Visit: Yes Status: Acute Plan to address problem: Coronavirus protocol: IV steroid therapy, IV antibiotic therapy, contact precautions, isolation precaution, prone positioning while in bed, therapeutic anticoagulation. (3) Acute renal failure Current Visit: Yes Status: Acute Qualifiers: Acute renal failure type: with acute renal cortical necrosis Qualified Code(s): N17.1 - Acute kidney failure with acute cortical necrosis Plan to address problem: Monitor urine output every shift, continue medical management, IV fluid resuscitation therapy as clinically indicated, nephrology team consulted. Dialysis as per renal team. Repeat BMP in a.m., (4) Hypertension Current Visit: Yes Status: Chronic Qualifiers: Hypertension type: primary hypertension Qualified Code(s): I10 - Essential (primary) hypertension Plan to address problem: Monitor blood pressure every shift, continue medical management (5) Pulmonary embolism Current Visit: No Status: Acute Qualifiers: Chronicity: chronic Plan to address problem: Continue therapeutic anticoagulation, supportive care. (6) Diabetes Current Visit: No Status: Chronic Plan to address problem: Consistent carbohydrate diet, Accu-Chek, insulin protocol, hypoglycemia protocol (7) Obesity hypoventilation syndrome Current Visit: Yes Status: Acute Plan to address problem: Balanced diet, increase physical activity at discharge, outpatient pulmonary follow-up for sleep study. (8) DVT prophylaxis Current Visit: Yes Status: Acute Plan to address problem: SCD to bilateral lower extremities while in bed, continue therapeutic anticoagulation History Interval history: 55 YO Female HD #4 with acute hypoxemic respiratory failure secondary to coronavirus infection, history of pulmonary embolism, acute kidney injury, obesity hypoventilation syndrome. No reported nursing events. Patient acknowledges continued shortness of breath, generalized weakness, as well as malaise. Patient denies pain. Hospitalist Physical - Constitutional Vitals: Temp Pulse Resp BP Pulse Ox 98.0 F 96 H 16 126/89 97 12/17/20 15:31 12/17/20 15:31 12/17/20 15:31 12/17/20 15:31 12/17/20 15:31 General appearance: Present: mild distress, obese - EENT Eyes: Present: PERRL, EOM intact ENT: hearing intact - Neck Neck: Present: supple - Respiratory Respiratory effort: labored, accessory muscle use Respiratory: bilateral: diminished, rhonchi - Cardiovascular Rhythm: regular Heart Sounds: Present: S1 & S2 - Extremities Extremities: no ischemia - Abdominal General gastrointestinal: soft, non-tender, non-distended - Integumentary Integumentary: Present: clear, dry - Psychiatric Psychiatric: cooperative - Neurologic Neurologic: CNII-XII intact HEART Score - HEART Score Troponin: Troponin T 0.025 ng/mL (0.00-0.029) 12/16/20 04:28 Results - Labs CBC & Chem 7: 12/17/20 07:54 12/16/20 18:53 Labs: Laboratory Last Values WBC 14.1 K/mm3 (4.5-11.0) H 12/17/20 07:54 RBC 4.53 M/mm3 (3.65-5.03) 12/17/20 07:54 Hgb 13.0 gm/dl (10.1-14.3) 12/17/20 07:54 Hct 38.8 % (30.3-42.9) D 12/17/20 07:54 MCV 86 fl (79-97) 12/17/20 07:54 MCH 29 pg (28-32) 12/17/20 07:54 MCHC 34 % (30-34) 12/17/20 07:54 RDW 13.9 % (13.2-15.2) 12/17/20 07:54 Plt Count 284 K/mm3 (140-440) 12/17/20 07:54 Lymph % (Auto) [employer] 12/16/20 04:28 Mcmullen % (Auto) [employer] 12/16/20 04:28 Eos % (Auto) [employer] 12/16/20 04:28 Baso % (Auto) [employer] 12/16/20 04:28 Lymph # (Auto) [employer] 12/16/20 04:28 Mcmullen # (Auto) [employer] 12/16/20 04:28 Eos # (Auto) [employer] 12/16/20 04:28 Baso # (Auto) [employer] 12/16/20 04:28 Seg Neutrophils % [place] 12/16/20 04:28 Seg Neutrophils # [employer] 12/16/20 04:28 PT 15.6 Sec. (12.2-14.9) H 12/15/20 15:18 INR 1.19 (0.87-1.13) H 12/15/20 15:18 APTT 106.2 Sec. (24.2-36.6) H* 12/15/20 15:18 D-Dimer 247.74 ng/mlDDU (0-234) H 12/15/20 01:58 Heparin Anti-Xa Level 0.59 U.I./ml (0.3-0.7) 12/15/20 15:18 Sodium 130 mmol/L (137-145) L 12/16/20 04:28 Potassium 6.0 mmol/L (3.6-5.0) H 12/16/20 18:53 Chloride 99.3 mmol/L (98-107) 12/16/20 04:28 Carbon Dioxide 12 mmol/L (22-30) L 12/16/20 04:28 Anion Gap 25 mmol/L 12/16/20 04:28 BUN 93 mg/dL (7-17) H 12/16/20 04:28 Creatinine 3.9 mg/dL (0.6-1.2) H 12/16/20 04:28 Estimated GFR 15 ml/min 12/16/20 04:28 BUN/Creatinine Ratio 24 % 12/16/20 04:28 Glucose 354 mg/dL (65-100) H 12/16/20 04:28 POC Glucose 477 mg/dL (70-105) H 12/17/20 16:49 Hemoglobin A1c 10.7 % (4-6) H 12/15/20 01:58 Lactic Acid 9.60 mmol/L (0.7-2.0) H* 12/15/20 08:13 Calcium 8.4 mg/dL (8.4-10.2) 12/16/20 04:28 Ferritin 1584.0 ng/mL (10.0-200.0) H 12/15/20 01:58 Total Bilirubin 0.20 mg/dL (0.1-1.2) 12/16/20 04:28 Direct Bilirubin < 0.2 mg/dL (0-0.2) 12/15/20 05:24 Indirect Bilirubin 0.0 mg/dL 12/15/20 05:24 AST 929 units/L (5-40) H 12/16/20 04:28 ALT 563 units/L (7-56) H 12/16/20 04:28 Alkaline Phosphatase 96 units/L (35-129) 12/16/20 04:28 Lactate Dehydrogenase 261 units/L (91-180) H 12/15/20 01:58 Troponin T 0.025 ng/mL (0.00-0.029) 12/16/20 04:28 C-Reactive Protein 0.60 mg/dL (0.00-1.30) 12/15/20 01:58 Total Protein 6.6 g/dL (6.3-8.2) D 12/16/20 04:28 Albumin 2.9 g/dL (3.9-5) L 12/16/20 04:28 Albumin/Globulin Ratio 0.8 % 12/16/20 04:28 Triglycerides 429 mg/dL (2-149) H 12/14/20 21:42 Cholesterol 147 mg/dL (50-199) 12/14/20 21:42 LDL Cholesterol Direct TNR 12/14/20 21:42 HDL Cholesterol 25 mg/dL (40-59) L 12/14/20 21:42 Cholesterol/HDL Ratio 5.88 % 12/14/20 21:42 Procalcitonin 0.83 ng/mL (<0.15) 12/15/20 01:58 Coronavirus (PCR) Positive (Negative) A 12/15/20 Unknown Microbiology: Microbiology 12/14/20 21:42 Peripheral/Venous Blood Culture - Preliminary NO GROWTH AFTER 48 HOURS 12/14/20 21:52 Peripheral/Venous Blood Culture - Preliminary NO GROWTH AFTER 48 HOURS Young/IV: Voiding Method Toilet Active Medications - Current Medications Current Medications: Generic Name Dose Route Start Last Admin Trade Name Freq PRN Reason Stop Dose Admin Acetaminophen 650 mg 12/15/20 00:07 Acetaminophen 325 Mg Tab PO Q4H PRN Pain MILD(1-3)/Fever >100.5/RECIO Al Hydrox/Mg Hydrox/Simethicone 30 ml 12/15/20 00:07 Alum-Mag Hydroxide-Simethicone [id number]/5ml Oral Liqd 30 Ml PO Q4H PRN Indigestion Amlodipine Besylate 10 mg 12/15/20 10:00 12/17/20 09:31 Amlodipine 10 Mg Tab PO 10 mg QDAY RONNA Administration Apixaban 5 mg 12/15/20 14:00 12/17/20 09:31 Apixaban 5 Mg Tab PO 5 mg Q12HR RONNA Administration Protocol Ascorbic Acid 500 mg 12/15/20 10:00 12/17/20 09:31 Ascorbic Acid 500 Mg Tab PO 500 mg QDAY RONNA Administration Aspirin 81 mg 12/15/20 14:00 12/17/20 09:31 Aspirin 81 Mg Tab Chew PO 81 mg QDAY RONNA Administration Cholecalciferol 1,000 unit 12/15/20 10:00 12/17/20 09:31 Cholecalciferol (Vit D3) 1000 Unit (25 Mcg) Tab PO 1,000 unit QDAY RONNA Administration Dexamethasone 6 mg 12/15/20 10:00 12/17/20 09:31 Dexamethasone 4 Mg/Ml Vial IV 12/24/20 10:01 6 mg DAILY RONNA Administration Famotidine 10 mg 12/16/20 10:00 12/17/20 09:31 Famotidine 10 Mg Tab PO 10 mg BID RONNA Administration Sodium Bicarbonate 150 meq/ 1,150 mls @ 125 mls/hr 12/16/20 12:00 12/17/20 17:12 Dextrose IV Infused DIRECT RONNA Infusion Insulin Glargine 25 units 12/17/20 22:00 Insulin Glargine 100 Units/Ml SUB-Q QHS RONNA Insulin Human Lispro 0 unit 12/15/20 07:30 12/17/20 17:14 Insulin Lispro 100 Unit/Ml SUB-Q 5 unit ACHS [facility] Administration Protocol Magnesium Hydroxide 30 ml 12/15/20 00:07 Magnesium Hydroxide (Mom) Oral Liqd Udc PO Q4H PRN Constipation Metoprolol Tartrate 25 mg 12/15/20 01:00 12/17/20 09:31 Metoprolol Tartrate 25 Mg Tab PO 25 mg BID RONNA Administration Naloxone HCl 0.1 mg 12/15/20 00:07 Naloxone 0.4 Mg/1 Ml Inj IV Q2MIN PRN Res Rate </= 8 or 02 SAT < 92% Ondansetron HCl 4 mg 12/15/20 00:07 12/15/20 00:30 Ondansetron 4 Mg/2 Ml Inj IV 4 mg Q8H PRN Administration Nausea And Vomiting Senna 8.6 mg 12/15/20 00:07 Sennosides 8.6 Mg Tab PO Q12HR PRN Constipation Sodium Chloride 10 ml 12/15/20 10:00 12/17/20 09:32 Sodium Chloride 0.9% 10 Ml Flush Syringe IV 10 ml BID RONNA Administration Sodium Chloride 10 ml 12/15/20 00:07 Sodium Chloride 0.9% 10 Ml Flush Syringe IV PRN PRN LINE FLUSH Trazodone HCl 50 mg 12/15/20 00:17 Trazodone 50 Mg Tab PO QHS PRN Insomnia Zinc Sulfate 220 mg 12/15/20 01:00 12/17/20 09:31 Zinc Sulfate 220 Mg Cap PO 220 mg BID RONNA Administration Zolpidem Tartrate 10 mg 12/15/20 22:00 12/16/20 22:43 Zolpidem 5 Mg Tab PO Not Given QHS RONNA
[2020-12-17] MEDS ORDERED: INSULIN GLARGINE 100 UNITS/ML SUB-Q SCH (22:00)
[2020-12-17] MEDS: ZOLPIDEM 5 MG TAB PO SCH (22:22)
[2020-12-18] MEDS ORDERED: SODIUM BICARBONATE 150 MEQ in SODIUM CHLORIDE 0.45% 1000 ML 1,000 ML IV SCH (01:00)
[2020-12-18] MEDS ORDERED: INSULIN LISPRO 100 UNIT/ML SUB-Q ONE (01:38)
[2020-12-18 02:52] LABS: Albumin 2.8 g/dL (3.9-5); Calcium 8.7 mg/dL (8.4-10.2)
[2020-12-18] MEDS: INSULIN LISPRO 100 UNIT/ML SUB-Q SCH ×3 (08:41→17:41)
--- NOTE | 2020-12-18 08:51 | Progress Note ---
Assessment and Plan Mild elevated troponin, nonspecific ECG is sinus rhythm with chronic diffuse ST elevation, consistent with early repolarization changes. COVID 19 infection Renal failure with hyperkalemia Liver transaminase Diabetes Prior CVA Hypertension Recommend: Conservative cardiac management. Subjective Date of service: 12/18/20 Principal diagnosis: Ac. hypoxemic resp. failure; COVID-19 infxn; JULY; Ac Pulm embolism; DM II Interval history: Patient is resting in bed and appears comfortable. Denies chest pain and denies unusual shortness of breath. Objective Vital Signs Temp Pulse Resp BP Pulse Ox 12/18/20 04:35 97.8 F 90 18 123/82 92 12/18/20 04:02 94 12/17/20 21:20 98.5 F 96 H 19 120/73 97 12/17/20 15:31 98.0 F 96 H 16 126/89 97 12/17/20 11:22 97.8 F 92 H 16 105/79 97 12/17/20 11:09 96 12/17/20 09:31 92 H - Physical Examination Narrative exam: Deferred due to COVID 19 infection. General: No Apparent Distress Cardiac: Positive: Reg Rate and Rhythm Neuro: Positive: Grossly Intact Extremities: Absent: edema - Labs and Meds Cardiac Enzymes 12/18/20 Range/Units 02:22 AST 111 H (5-40) units/L Comprehensive Metabolic Panel 12/18/20 12/18/20 Range/Units 02:22 06:59 Sodium 131 L (137-145) mmol/L Potassium 4.4 D (3.6-5.0) mmol/L Chloride 92.3 L (98-107) mmol/L Carbon Dioxide 28 D (22-30) mmol/L BUN 94 H (7-17) mg/dL Creatinine 3.1 H 2.9 H (0.6-1.2) mg/dL Glucose 369 H (65-100) mg/dL Calcium 8.7 (8.4-10.2) mg/dL AST 111 H (5-40) units/L ALT 241 H (7-56) units/L Alkaline Phosphatase 68 (35-129) units/L Total Protein 5.5 L (6.3-8.2) g/dL Albumin 2.8 L (3.9-5) g/dL - EKG Sinus rhythms and dysrhythmias: sinus tachycardia - Allied health notes Allied health notes reviewed: nursing
--- NOTE | 2020-12-18 08:55 | Progress Note ---
Assessment and Plan 1. Acute kidney injury: JULY superimposed on CKD in the setting of volume depletion +/- Covid nephropathy. Renal US negative for hydro. Continue IV fluids. Monitor renal function. Creatinine level is slightly better today. Avoid nephrotoxic agents. Meds dosage based on GFR. Monitor for EQUINE DENTIST needs. 2. FEN: Hyperkalemia, improved, monitor. Anion-gap metabolic acidosis, improved, monitor. Hyponatremia, monitor. Monitor lytes and volume status. 3. Acute respiratory failure with hypoxemia: 2/2 Covid PNA. Supplemental O2 via NC O2. 4. Covid PNA: Followed by ID. 5. Elevated ALT & AST: Trend. 6. DM type 2, uncontrolled: On SSI. Lantus increased to 40 U. 7. Hypertension: BP controlled. Subjective: Patient was seen and examined at the bedside. Doing better today. Examination: General appearance: well-developed, appears stated age, obese, on RA HEENT: atraumatic, VILMA Neck: trachea midline Respiratory: ctab Heart: S1S2, regular, no murmur Abdomen: soft, bowel sounds heard, NT Integumentary: no obvious rash Neurologic: AO, non-focal Ext: edema Subjective Date of service: 12/18/20 Principal diagnosis: Ac. hypoxemic resp. failure; COVID-19 infxn; JULY; Ac Pulm embolism; DM II Objective - Vital Signs Vital signs: Vital Signs - 12hr 12/17/20 12/18/20 12/18/20 21:20 04:02 04:35 Temperature 98.5 F 97.8 F Pulse Rate 96 H 90 Respiratory 19 18 Rate Blood Pressure 120/73 123/82 O2 Sat by Pulse 97 94 92 Oximetry - Lab 12/17/20 07:54 12/18/20 06:59 Most recent lab results Calcium 8.7 mg/dL (8.4-10.2) 12/18/20 02:22 Medications & Allergies - Medications Allergies/Adverse Reactions: Allergies No Known Allergies Allergy (Unverified 06/06/14 17:09) Home Medications: Home Medications Medication Instructions Recorded Confirmed Last Taken Type Zolpidem (Nf) [Ambien (Nf)] 10 mg PO QHS 06/06/14 12/16/20 Unknown History glyBURIDE [Diabeta] 5 mg PO DAILY 06/06/14 12/16/20 Unknown History metFORMIN [Glucophage] 1,000 mg PO BID 06/06/14 12/16/20 Unknown History Enoxaparin [Lovenox] 110 mg SQ BID #10 syringe 06/10/14 12/16/20 Unknown Rx Metoprolol [Lopressor TAB] 25 mg PO BID #60 tablet 06/10/14 12/16/20 Unknown Rx Warfarin [Coumadin] 7.5 mg PO DAILY@1700 #30 tablet 06/10/14 12/16/20 Unknown Rx amLODIPine 10 mg PO QDAY #30 tablet 06/10/14 12/16/20 Unknown Rx Active Medications: Generic Name Dose Route Start Last Admin Trade Name Freq PRN Reason Stop Dose Admin Acetaminophen 650 mg 12/15/20 00:07 Acetaminophen 325 Mg Tab PO Q4H PRN Pain MILD(1-3)/Fever >100.5/RECIO Al Hydrox/Mg Hydrox/Simethicone 30 ml 12/15/20 00:07 Alum-Mag Hydroxide-Simethicone [id number]/5ml Oral Liqd 30 Ml PO Q4H PRN Indigestion Amlodipine Besylate 10 mg 12/15/20 10:00 12/17/20 09:31 Amlodipine 10 Mg Tab PO 10 mg QDAY RONNA Administration Apixaban 5 mg 12/15/20 14:00 12/17/20 22:20 Apixaban 5 Mg Tab PO 5 mg Q12HR RONNA Administration Protocol Ascorbic Acid 500 mg 12/15/20 10:00 12/17/20 09:31 Ascorbic Acid 500 Mg Tab PO 500 mg QDAY RONNA Administration Aspirin 81 mg 12/15/20 14:00 12/17/20 09:31 Aspirin 81 Mg Tab Chew PO 81 mg QDAY RONNA Administration Cholecalciferol 1,000 unit 12/15/20 10:00 12/17/20 09:31 Cholecalciferol (Vit D3) 1000 Unit (25 Mcg) Tab PO 1,000 unit QDAY RONNA Administration Dexamethasone 6 mg 12/15/20 10:00 12/17/20 09:31 Dexamethasone 4 Mg/Ml Vial IV 12/24/20 10:01 6 mg DAILY RONNA Administration Famotidine 10 mg 12/16/20 10:00 12/17/20 22:22 Famotidine 10 Mg Tab PO 10 mg BID RONNA Administration Sodium Bicarbonate 150 meq/ 1,150 mls @ 125 mls/hr 12/18/20 01:00 12/18/20 01:57 Sodium Chloride IV 125 mls/hr DIRECT RONNA Administration Insulin Glargine 25 units 12/17/20 22:00 12/17/20 22:14 Insulin Glargine 100 Units/Ml SUB-Q 25 units QHS RONNA Administration Insulin Human Lispro 0 unit 12/15/20 07:30 12/18/20 08:41 Insulin Lispro 100 Unit/Ml SUB-Q 4 unit ACHS RONNA Administration Protocol Magnesium Hydroxide 30 ml 12/15/20 00:07 Magnesium Hydroxide (Mom) Oral Liqd Udc PO Q4H PRN Constipation Metoprolol Tartrate 25 mg 12/15/20 01:00 12/17/20 22:22 Metoprolol Tartrate 25 Mg Tab PO 25 mg BID RONNA Administration Naloxone HCl 0.1 mg 12/15/20 00:07 Naloxone 0.4 Mg/1 Ml Inj IV Q2MIN PRN Res Rate </= 8 or 02 SAT < 92% Ondansetron HCl 4 mg 12/15/20 00:07 12/15/20 00:30 Ondansetron 4 Mg/2 Ml Inj IV 4 mg Q8H PRN Administration Nausea And Vomiting Senna 8.6 mg 12/15/20 00:07 Sennosides 8.6 Mg Tab PO Q12HR PRN Constipation Sodium Chloride 10 ml 12/15/20 10:00 12/17/20 22:23 Sodium Chloride 0.9% 10 Ml Flush Syringe IV 10 ml BID RONNA Administration Sodium Chloride 10 ml 12/15/20 00:07 Sodium Chloride 0.9% 10 Ml Flush Syringe IV PRN PRN LINE FLUSH Trazodone HCl 50 mg 12/15/20 00:17 Trazodone 50 Mg Tab PO QHS PRN Insomnia Zinc Sulfate 220 mg 12/15/20 01:00 12/17/20 22:20 Zinc Sulfate 220 Mg Cap PO 220 mg BID RONNA Administration Zolpidem Tartrate 10 mg 12/15/20 22:00 12/17/20 22:22 Zolpidem 5 Mg Tab PO 10 mg QHS RONNA Administration
[2020-12-18] MEDS ORDERED: SODIUM CHLORIDE 0.9% 1000 ML 1,000 ML IV SCH (09:00)
[2020-12-18] MEDS: APIXABAN 5 MG TAB PO SCH ×2 (10:33→22:01)
[2020-12-18] MEDS: CHOLECALCIFEROL (VIT D3) 1000 UNIT (25 mcg) TAB PO SCH (10:33)
[2020-12-18] MEDS: ASPIRIN 81 MG TAB CHEW PO SCH (10:33)
[2020-12-18] MEDS: FAMOTIDINE 10 MG TAB PO SCH ×2 (10:33→22:00)
[2020-12-18] MEDS: ASCORBIC ACID 500 MG TAB PO SCH (10:33)
[2020-12-18] MEDS: METOPROLOL TARTRATE 25 MG TAB PO SCH ×2 (10:33→22:00)
[2020-12-18] MEDS: amLODIPine 10 MG TAB PO SCH (10:33)
[2020-12-18] MEDS: ZINC SULFATE 220 MG CAP PO SCH ×2 (10:33→22:01)
[2020-12-18] MEDS: dexAMETHasone 4 MG/ML VIAL IV SCH (10:34)
[2020-12-18] MEDS ORDERED: DEXTROSE 50% IN WATER (25GM) 50 ML SYRINGE IV PRN (12:41)
--- NOTE | 2020-12-18 12:59 | Electrocardiograph Report ---
[facility] Test Date: 2020-12-17 Test Time: 12:56:41 Pat Name: TRISH LUCIA Department: Room: A363 1 Gender: F Leg Breaker: YE : 1965 Requested By: JOAQUIM MCCORD Order Number: [id number] Reading MD: Joaquim Mccord Measurements Intervals [place] Rate: 91 P: 78 MD: 128 QRS: 60 QRSD: 86 T: 44 QT: 359 QTc: 441 Interpretive Statements Sinus rhythm Diffuse ST elevation, consider early repolarization, acute injury or pericarditis Compared to ECG 12/14/2020 21:22:59 No significant change Electronically Signed On 12-18-2020 12:58:29 EDT by Joaquim Mccord
--- NOTE | 2020-12-18 14:21 | Progress Note ---
Assessment and Plan Acute hypoxemic respiratory failure COVID-19 Acute renal failure Acute hyperkalemia Hypertension Pulmonary embolism Diabetes type II - Remdesivir as per ID/Pulmonary developed protocols (not a candidate re: JULY) - continue systemic steroids for severe COVID-19 infection - follow repeat COVID tests results - zinc and vitamin C supplementation - Monitor inflammatory markers per facility protocol - ferritin, D-dimer, CRP - therapeutic anticoagulation per system Protocol based on d-dimer and clinical considerations (Has VTE and on Eliquis) - Continue contact and airborne isolation - continue to wean supplemental oxygen to keep O2 sats > 92% - continue Bronchodilators (SUSANA) with pulm hygiene per RT - azotemia per nephrology team - continue to avoid nephrotoxins, renally dose all medications - continue mobility protocols to prevent pressure ulcers - PT/OT as tolerated - Wound care per RN/WCT - continue accuchecks with glycemic control per SSI for target blood glucose < 180 mg/dL - Smoking cessation strongly counseled at the bedside - home oxygen evaluation at discharge - GI & VTE prophylaxis - Flu & pneumovax per protocol - Pulmonary out patient follow up for PFTs and optimization of respiratory status - continue other care per attending / other consultants - prn analgesia per pain score ... re-evaluate in am & prn Subjective Date of service: 12/18/20 Principal diagnosis: Ac. hypoxemic resp. failure; COVID-19 infxn; JULY; Ac Pulm embolism; DM II Interval history: Patient is seen today for: Acute hypoxemic respiratory failure; COVID-19 infxn; JULY; Acute Pulmonary embolism; DM II Seen and examined at bedside; 24hour events reviewed; nursing and respiratory care staff consulted; no adverse overnight events reported to me; resting in bed; Objective Vital Signs - 12hr 12/18/20 12/18/20 12/18/20 04:02 04:35 08:20 Temperature 97.8 F Pulse Rate 90 Respiratory 18 Rate Blood Pressure 123/82 O2 Sat by Pulse 94 92 94 Oximetry 12/18/20 12/18/20 10:37 11:32 Temperature Pulse Rate 99 H Respiratory Rate Blood Pressure 134/74 O2 Sat by Pulse 94 Oximetry Constitutional: no acute distress, alert, other (middle aged obese female with normal respiratory effort at rest) Eyes: non-icteric ENT: oropharynx moist Neck: supple, no lymphadenopathy, no JVD, other (large circumference) Effort: mildly labored Ascultation: Bilateral: diminished breath sounds, rhonchi (bases) Percussion: Bilateral: not dull Cardiovascular: regular rate and rhythm Gastrointestinal: normoactive bowel sounds, soft, non-tender, non-distended (protuberant) Integumentary: normal Extremities: no cyanosis, no edema, pulses normal, no ischemia or petechiae Neurologic: normal mental status, non-focal exam, pupils equal and round, CN II- XII normal, motor strength normal and Psychiatric: mood appropriate, affect normal CBC and BMP: 12/17/20 07:54 12/18/20 06:59 ABG, PT/INR, D-dimer: PT/INR, D-dimer PT 15.6 Sec. (12.2-14.9) H 12/15/20 15:18 INR 1.19 (0.87-1.13) H 12/15/20 15:18 D-Dimer 247.74 ng/mlDDU (0-234) H 12/15/20 01:58 Abnormal lab findings: Abnormal Labs 12/14/20 12/14/20 12/14/20 21:42 21:42 21:42 WBC RBC 5.30 H Hgb 15.9 H Hct 45.8 H MCHC 35 H PT INR APTT D-Dimer 251.44 H Sodium 129 L Potassium 5.6 H Chloride 96.0 L Carbon Dioxide 14 L BUN 58 H Creatinine 3.1 H Glucose 229 H POC Glucose Hemoglobin A1c Lactic Acid Ferritin AST ALT Lactate Dehydrogenase Troponin T 0.034 H Total Protein Albumin Triglycerides 429 H HDL Cholesterol 25 L Coronavirus (PCR) 12/14/20 12/15/20 12/15/20 21:42 01:58 01:58 WBC RBC Hgb Hct MCHC PT INR APTT D-Dimer Sodium Potassium Chloride Carbon Dioxide BUN Creatinine Glucose 265 H POC Glucose Hemoglobin A1c Lactic Acid 3.60 H* 4.00 H* Ferritin AST ALT Lactate Dehydrogenase 261 H Troponin T 0.057 H D Total Protein Albumin Triglycerides HDL Cholesterol Coronavirus (PCR) 12/15/20 12/15/20 12/15/20 01:58 01:58 01:58 WBC RBC Hgb Hct MCHC PT INR APTT D-Dimer 247.74 H Sodium Potassium Chloride Carbon Dioxide BUN Creatinine Glucose POC Glucose Hemoglobin A1c 10.7 H Lactic Acid Ferritin 1584.0 H AST ALT Lactate Dehydrogenase Troponin T Total Protein Albumin Triglycerides HDL Cholesterol Coronavirus (PCR) 12/15/20 12/15/20 12/15/20 05:24 05:24 08:13 WBC RBC Hgb Hct MCHC PT INR APTT D-Dimer Sodium Potassium Chloride Carbon Dioxide BUN Creatinine Glucose POC Glucose Hemoglobin A1c Lactic Acid 7.70 H* 9.60 H* Ferritin AST 58 H ALT Lactate Dehydrogenase Troponin T Total Protein 5.4 L Albumin 3.0 L Triglycerides HDL Cholesterol Coronavirus (PCR) 12/15/20 12/15/20 12/15/20 13:15 15:18 15:18 WBC RBC Hgb 14.5 H Hct 43.7 H MCHC PT 15.6 H INR 1.19 H APTT 106.2 H* D-Dimer Sodium Potassium Chloride Carbon Dioxide BUN Creatinine Glucose POC Glucose 310 H Hemoglobin A1c Lactic Acid Ferritin AST ALT Lactate Dehydrogenase Troponin T Total Protein Albumin Triglycerides HDL Cholesterol Coronavirus (PCR) 12/15/20 12/15/20 12/15/20 15:18 22:10 Unknown WBC RBC Hgb Hct MCHC PT INR APTT D-Dimer Sodium Potassium Chloride Carbon Dioxide BUN Creatinine 3.7 H Glucose POC Glucose 378 H Hemoglobin A1c Lactic Acid Ferritin AST ALT Lactate Dehydrogenase Troponin T Total Protein Albumin Triglycerides HDL Cholesterol Coronavirus (PCR) Positive A 12/16/20 12/16/20 12/16/20 04:28 04:28 07:09 WBC RBC 5.24 H Hgb 15.8 H Hct 45.9 H MCHC PT INR APTT D-Dimer Sodium 130 L Potassium 6.7 H* Chloride Carbon Dioxide 12 L BUN 93 H Creatinine 3.9 H Glucose 354 H POC Glucose 336 H Hemoglobin A1c Lactic Acid Ferritin AST 929 H ALT 563 H Lactate Dehydrogenase Troponin T Total Protein Albumin 2.9 L Triglycerides HDL Cholesterol Coronavirus (PCR) 12/16/20 12/16/20 12/16/20 12:41 16:53 18:53 WBC RBC Hgb Hct MCHC PT INR APTT D-Dimer Sodium Potassium 6.0 H Chloride Carbon Dioxide BUN Creatinine Glucose POC Glucose 291 H 355 H Hemoglobin A1c Lactic Acid Ferritin AST ALT Lactate Dehydrogenase Troponin T Total Protein Albumin Triglycerides HDL Cholesterol Coronavirus (PCR) 12/16/20 12/17/20 12/17/20 21:38 07:54 08:10 WBC 14.1 H RBC Hgb Hct MCHC PT INR APTT D-Dimer Sodium Potassium Chloride Carbon Dioxide BUN Creatinine Glucose POC Glucose 327 H 323 H Hemoglobin A1c Lactic Acid Ferritin AST ALT Lactate Dehydrogenase Troponin T Total Protein Albumin Triglycerides HDL Cholesterol Coronavirus (PCR) 12/17/20 12/17/20 12/17/20 12:56 16:49 21:17 WBC RBC Hgb Hct MCHC PT INR APTT D-Dimer Sodium Potassium Chloride Carbon Dioxide BUN Creatinine Glucose POC Glucose 331 H 477 H 469 H Hemoglobin A1c Lactic Acid Ferritin AST ALT Lactate Dehydrogenase Troponin T Total Protein Albumin Triglycerides HDL Cholesterol Coronavirus (PCR) 12/18/20 12/18/20 12/18/20 00:15 02:22 06:59 WBC RBC Hgb Hct MCHC PT INR APTT D-Dimer Sodium 131 L Potassium Chloride 92.3 L Carbon Dioxide BUN 94 H Creatinine 3.1 H 2.9 H Glucose 369 H POC Glucose 388 H Hemoglobin A1c Lactic Acid Ferritin AST 111 H ALT 241 H Lactate Dehydrogenase Troponin T Total Protein 5.5 L Albumin 2.8 L Triglycerides HDL Cholesterol Coronavirus (PCR) 12/18/20 12/18/20 08:17 11:34 WBC RBC Hgb Hct MCHC PT INR APTT D-Dimer Sodium Potassium Chloride Carbon Dioxide BUN Creatinine Glucose POC Glucose 314 H 392 H Hemoglobin A1c Lactic Acid Ferritin AST ALT Lactate Dehydrogenase Troponin T Total Protein Albumin Triglycerides HDL Cholesterol Coronavirus (PCR) Allied health notes reviewed: nursing
--- NOTE | 2020-12-18 15:22 | Progress Note ---
Assessment and Plan Cultures: Blood culture no growth so far COVID positive as outpatient A/P: 55-year-old female past medical history diabetes, hypertension, pulmonary embolism presented to hospital with COVID-19 #COVID-19 pneumonia: Patient presented with a week of symptoms, chest x-ray with diffuse bilateral infiltrates, admission O2 sats on room air. #Acute hypoxemic respiratory failure: Likely secondary to COVID-19 infection. Currently on 2L NC #JULY: Renally dose antibiotics, not currently on candidate for remdesivir #Diabetes: tight glycemic control for best outcomes. Recs: -Dexamethasone 6 mg IV/PO daily for 10 days -Obtain q48-72h inflammatory markers - ferritin, Ddimer, CRP, LDH -Anticoagulation per hospital protocol -Proning as able Thank you for the consult, we will continue to follow. Carolann Grover MD [facility] O: [phone] F: [phone] Subjective Date of service: 12/18/20 Principal diagnosis: Ac. hypoxemic resp. failure; COVID-19 infxn; JULY; Ac Pulm embolism; DM II Interval history: Afebrile, no acute change. Objective - Exam Narrative Exam: Physical exam deferred to reduce risk of transmission of COVID-19. Please refer to primary team's note. - Constitutional Vitals: Vital Signs Temp Pulse Resp BP Pulse Ox 97.8 F 99 H 18 134/74 94 12/18/20 04:35 12/18/20 11:32 12/18/20 04:35 12/18/20 10:37 12/18/20 11:32 Temperature -Last 24 Hours Temperature 97.8 F Temperature 98.5 F Temperature 98.0 F - Labs CBC & Chem 7: 12/17/20 07:54 12/18/20 06:59 Labs: Abnormal lab results 12/17/20 12/17/20 12/18/20 Range/Units 16:49 21:17 00:15 Sodium (137-145) mmol/L Chloride (98-107) mmol/L BUN (7-17) mg/dL Creatinine (0.6-1.2) mg/dL Glucose (65-100) mg/dL POC Glucose 477 H 469 H 388 H (70-105) mg/dL AST (5-40) units/L ALT (7-56) units/L Total Protein (6.3-8.2) g/dL Albumin (3.9-5) g/dL 12/18/20 12/18/20 12/18/20 Range/Units 02:22 06:59 08:17 Sodium 131 L (137-145) mmol/L Chloride 92.3 L (98-107) mmol/L BUN 94 H (7-17) mg/dL Creatinine 3.1 H 2.9 H (0.6-1.2) mg/dL Glucose 369 H (65-100) mg/dL POC Glucose 314 H (70-105) mg/dL AST 111 H (5-40) units/L ALT 241 H (7-56) units/L Total Protein 5.5 L (6.3-8.2) g/dL Albumin 2.8 L (3.9-5) g/dL 12/18/20 Range/Units 11:34 Sodium (137-145) mmol/L Chloride (98-107) mmol/L BUN (7-17) mg/dL Creatinine (0.6-1.2) mg/dL Glucose (65-100) mg/dL POC Glucose 392 H (70-105) mg/dL AST (5-40) units/L ALT (7-56) units/L Total Protein (6.3-8.2) g/dL Albumin (3.9-5) g/dL
[2020-12-18 18:38] LABS: Creatinine,Urine 65.8 mg/dL (0.1-20.0); Protein/Creatinine Ratio,Urine 0.78
[2020-12-18 18:43] LABS: Bacteria,Urine 1+ /HPF (Negative); Bilirubin,Urine NEG (Negative); Blood,Urine SM (Negative); Color,Urine Yellow (Yellow); Mucus,Urine FEW /HPF; Urobilinogen,Urine < 2.0 mg/dL (<2.0)
[2020-12-18] MEDS ORDERED: guaiFENesin 200 MG TAB PO ONE (20:43)
--- NOTE | 2020-12-18 20:54 | Progress Note ---
Assessment and Plan - Patient Problems (1) Acute respiratory failure with hypoxia Current Visit: Yes Status: Acute Plan to address problem: Supplemental oxygen, pulse oximetry, nebulizer therapy, noninvasive positive pressure ventilation as clinically indicated. (2) COVID-19 Current Visit: Yes Status: Acute Plan to address problem: Coronavirus protocol: IV steroid therapy, IV antibiotic therapy, contact precautions, isolation precaution, prone positioning while in bed, therapeutic anticoagulation. (3) Acute renal failure Current Visit: Yes Status: Acute Qualifiers: Acute renal failure type: with acute renal cortical necrosis Qualified Code(s): N17.1 - Acute kidney failure with acute cortical necrosis Plan to address problem: Monitor urine output every shift, continue medical management, IV fluid resuscitation therapy as clinically indicated, nephrology team consulted. Dialysis as per renal team. Repeat BMP in a.m., (4) Hypertension Current Visit: Yes Status: Chronic Qualifiers: Hypertension type: primary hypertension Qualified Code(s): I10 - Essential (primary) hypertension Plan to address problem: Monitor blood pressure every shift, continue medical management (5) Pulmonary embolism Current Visit: No Status: Acute Qualifiers: Chronicity: chronic Plan to address problem: Continue therapeutic anticoagulation, supportive care. (6) Diabetes Current Visit: No Status: Chronic Plan to address problem: Consistent carbohydrate diet, Accu-Chek, insulin protocol, hypoglycemia protocol (7) Obesity hypoventilation syndrome Current Visit: Yes Status: Acute Plan to address problem: Balanced diet, increase physical activity at discharge, outpatient pulmonary follow-up for sleep study. (8) DVT prophylaxis Current Visit: Yes Status: Acute Plan to address problem: SCD to bilateral lower extremities while in bed, continue therapeutic anticoagulation History Interval history: 55 YO Female HD #5 with acute hypoxemic respiratory failure secondary to coronavirus infection, history of pulmonary embolism, acute kidney injury, obesity hypoventilation syndrome. No reported nursing events. Patient acknowledges improvement in shortness of breath, generalized weakness, as well as malaise. Patient denies pain. Patient resting comfortably on room air. Hospitalist Physical - Constitutional Vitals: Temp Pulse Resp BP Pulse Ox 97.8 F 99 H 18 134/74 94 12/18/20 04:35 12/18/20 11:32 12/18/20 04:35 12/18/20 10:37 12/18/20 11:32 General appearance: Present: mild distress, obese - EENT Eyes: Present: PERRL ENT: hearing intact - Neck Neck: Present: supple - Respiratory Respiratory effort: normal Respiratory: bilateral: CTA - Cardiovascular Rhythm: regular Heart Sounds: Present: S1 & S2 - Extremities Extremities: no ischemia Peripheral Pulses: within normal limits - Abdominal General gastrointestinal: soft, non-tender, non-distended - Integumentary Integumentary: Present: clear, dry - Psychiatric Psychiatric: appropriate mood/affect, cooperative - Neurologic Neurologic: CNII-XII intact HEART Score - HEART Score Troponin: Troponin T 0.025 ng/mL (0.00-0.029) 12/16/20 04:28 Results - Labs CBC & Chem 7: 12/17/20 07:54 12/18/20 06:59 Labs: Laboratory Last Values WBC 14.1 K/mm3 (4.5-11.0) H 12/17/20 07:54 RBC 4.53 M/mm3 (3.65-5.03) 12/17/20 07:54 Hgb 13.0 gm/dl (10.1-14.3) 12/17/20 07:54 Hct 38.8 % (30.3-42.9) D 12/17/20 07:54 MCV 86 fl (79-97) 12/17/20 07:54 MCH 29 pg (28-32) 12/17/20 07:54 MCHC 34 % (30-34) 12/17/20 07:54 RDW 13.9 % (13.2-15.2) 12/17/20 07:54 Plt Count 284 K/mm3 (140-440) 12/17/20 07:54 Lymph % (Auto) Spool Maker 12/16/20 04:28 [place] % (Auto) Spool Maker 12/16/20 04:28 Eos % (Auto) Spool Maker 12/16/20 04:28 Baso % (Auto) Spool Maker 12/16/20 04:28 Lymph # (Auto) Spool Maker 12/16/20 04:28 [place] # (Auto) Spool Maker 12/16/20 04:28 Eos # (Auto) Spool Maker 12/16/20 04:28 Baso # (Auto) Spool Maker 12/16/20 04:28 Seg Neutrophils % Spool Maker 12/16/20 04:28 Seg Neutrophils # Spool Maker 12/16/20 04:28 PT 15.6 Sec. (12.2-14.9) H 12/15/20 15:18 INR 1.19 (0.87-1.13) H 12/15/20 15:18 APTT 106.2 Sec. (24.2-36.6) H* 12/15/20 15:18 D-Dimer 247.74 ng/mlDDU (0-234) H 12/15/20 01:58 Heparin Anti-Xa Level 0.59 U.I./ml (0.3-0.7) 12/15/20 15:18 Sodium 131 mmol/L (137-145) L 12/18/20 02:22 Potassium 4.4 mmol/L (3.6-5.0) D 12/18/20 02:22 Chloride 92.3 mmol/L (98-107) L 12/18/20 02:22 Carbon Dioxide 28 mmol/L (22-30) D 12/18/20 02:22 Anion Gap 15 mmol/L 12/18/20 02:22 BUN 94 mg/dL (7-17) H 12/18/20 02:22 Creatinine 2.9 mg/dL (0.6-1.2) H 12/18/20 06:59 Estimated GFR 20 ml/min 12/18/20 06:59 BUN/Creatinine Ratio 30 % 12/18/20 02:22 Glucose 369 mg/dL (65-100) H 12/18/20 02:22 POC Glucose 445 mg/dL (70-105) H 12/18/20 17:36 Hemoglobin A1c 10.7 % (4-6) H 12/15/20 01:58 Lactic Acid 9.60 mmol/L (0.7-2.0) H* 12/15/20 08:13 Calcium 8.7 mg/dL (8.4-10.2) 12/18/20 02:22 Ferritin 1584.0 ng/mL (10.0-200.0) H 12/15/20 01:58 Total Bilirubin 0.30 mg/dL (0.1-1.2) 12/18/20 02:22 Direct Bilirubin < 0.2 mg/dL (0-0.2) 12/15/20 05:24 Indirect Bilirubin 0.0 mg/dL 12/15/20 05:24 AST 111 units/L (5-40) H 12/18/20 02:22 ALT 241 units/L (7-56) H 12/18/20 02:22 Alkaline Phosphatase 68 units/L (35-129) 12/18/20 02:22 Lactate Dehydrogenase 261 units/L (91-180) H 12/15/20 01:58 Troponin T 0.025 ng/mL (0.00-0.029) 12/16/20 04:28 C-Reactive Protein 0.60 mg/dL (0.00-1.30) 12/15/20 01:58 Total Protein 5.5 g/dL (6.3-8.2) L 12/18/20 02:22 Albumin 2.8 g/dL (3.9-5) L 12/18/20 02:22 Albumin/Globulin Ratio 1.0 % 12/18/20 02:22 Triglycerides 429 mg/dL (2-149) H 12/14/20 21:42 Cholesterol 147 mg/dL (50-199) 12/14/20 21:42 LDL Cholesterol Direct TNR 12/14/20 21:42 HDL Cholesterol 25 mg/dL (40-59) L 12/14/20 21:42 Cholesterol/HDL Ratio 5.88 % 12/14/20 21:42 Procalcitonin 0.83 ng/mL (<0.15) 12/15/20 01:58 Urine Color Yellow (Yellow) 12/18/20 17:55 Urine Turbidity Clear (Clear) 12/18/20 17:55 Urine pH 5.0 (5.0-7.0) 12/18/20 17:55 Ur Specific [place] 1.018 (1.003-1.030) 12/18/20 17:55 Urine Protein 30 mg/dl mg/dL (Negative) 12/18/20 17:55 Urine Glucose (UA) >=500 mg/dL (Negative) 12/18/20 17:55 Urine Ketones Neg mg/dL (Negative) 12/18/20 17:55 Urine Blood Sm (Negative) 12/18/20 17:55 Urine Nitrite Neg (Negative) 12/18/20 17:55 Urine Bilirubin Neg (Negative) 12/18/20 17:55 Urine Urobilinogen < 2.0 mg/dL (<2.0) 12/18/20 17:55 Ur Leukocyte Esterase Sm (Negative) 12/18/20 17:55 Urine WBC (Auto) 2.0 /HPF (0.0-6.0) 12/18/20 17:55 Urine RBC (Auto) 2.0 /HPF (0.0-6.0) 12/18/20 17:55 U Epithel Cells (Auto) 1.0 /HPF (0-13.0) 12/18/20 17:55 Urine Bacteria (Auto) 1+ /HPF (Negative) 12/18/20 17:55 Urine Mucus Few /HPF 12/18/20 17:55 Urine Creatinine 65.8 mg/dL (0.1-20.0) H 12/18/20 17:55 Protein/Creatinin Ratio 0.78 12/18/20 17:55 Urine Sodium 22 mmol/L 12/18/20 17:55 Urine Total Protein 51 mg/dL (5-11.8) H 12/18/20 17:55 Coronavirus (PCR) Positive (Negative) A 12/15/20 Unknown Microbiology: Microbiology 12/14/20 21:42 Peripheral/Venous Blood Culture - Preliminary NO GROWTH AFTER 72 HOURS 12/14/20 21:52 Peripheral/Venous Blood Culture - Preliminary NO GROWTH AFTER 72 HOURS Young/IV: Voiding Method Toilet Active Medications - Current Medications Current Medications: Generic Name Dose Route Start Last Admin Trade Name Freq PRN Reason Stop Dose Admin Acetaminophen 650 mg 12/15/20 00:07 Acetaminophen 325 Mg Tab PO Q4H PRN Pain MILD(1-3)/Fever >100.5/RECIO Al Hydrox/Mg Hydrox/Simethicone 30 ml 12/15/20 00:07 Alum-Mag Hydroxide-Simethicone [phone]/5ml Oral Liqd 30 Ml PO Q4H PRN Indigestion Amlodipine Besylate 10 mg 12/15/20 10:00 12/18/20 10:33 Amlodipine 10 Mg Tab PO 10 mg QDAY RONNA Administration Apixaban 5 mg 12/15/20 14:00 12/18/20 10:33 Apixaban 5 Mg Tab PO 5 mg Q12HR RONNA Administration Protocol Ascorbic Acid 500 mg 12/15/20 10:00 12/18/20 10:33 Ascorbic Acid 500 Mg Tab PO 500 mg QDAY RONNA Administration Aspirin 81 mg 12/15/20 14:00 12/18/20 10:33 Aspirin 81 Mg Tab Chew PO 81 mg QDAY RONNA Administration Cholecalciferol 1,000 unit 12/15/20 10:00 12/18/20 10:33 Cholecalciferol (Vit D3) 1000 Unit (25 Mcg) Tab PO 1,000 unit QDAY RONNA Administration Dexamethasone 6 mg 12/15/20 10:00 12/18/20 10:34 Dexamethasone 4 Mg/Ml Vial IV 12/24/20 10:01 6 mg DAILY RONNA Administration Dextrose 50 ml 12/18/20 12:41 Dextrose 50% In Water (25gm) 50 Ml Syringe IV Q30MIN PRN Hypoglycemia Protocol Famotidine 10 mg 12/16/20 10:00 12/18/20 10:33 Famotidine 10 Mg Tab PO 10 mg BID [facility] Administration Sodium Chloride 1,000 mls @ 75 mls/hr 12/18/20 09:00 Nacl 0.9% 1000 Ml IV DIRECT [facility] Insulin Glargine 40 units 12/18/20 22:00 Insulin Glargine 100 Units/Ml SUB-Q QHS [facility] Insulin Human Lispro 0 unit 12/18/20 18:00 12/18/20 17:41 Insulin Lispro 100 Unit/Ml SUB-Q 8 unit Q6HR [facility] Administration Protocol Magnesium Hydroxide 30 ml 12/15/20 00:07 Magnesium Hydroxide (Mom) Oral Liqd Udc PO Q4H PRN Constipation Metoprolol Tartrate 25 mg 12/15/20 01:00 12/18/20 10:33 Metoprolol Tartrate 25 Mg Tab PO 25 mg BID [facility] Administration Naloxone HCl 0.1 mg 12/15/20 00:07 Naloxone 0.4 Mg/1 Ml Inj IV Q2MIN PRN Res Rate </= 8 or 02 SAT < 92% Ondansetron HCl 4 mg 12/15/20 00:07 12/15/20 00:30 Ondansetron 4 Mg/2 Ml Inj IV 4 mg Q8H PRN Administration Nausea And Vomiting Senna 8.6 mg 12/15/20 00:07 Sennosides 8.6 Mg Tab PO Q12HR PRN Constipation Sodium Chloride 10 ml 12/15/20 10:00 12/18/20 10:34 Sodium Chloride 0.9% 10 Ml Flush Syringe IV 10 ml BID RONNA Administration Sodium Chloride 10 ml 12/15/20 00:07 Sodium Chloride 0.9% 10 Ml Flush Syringe IV PRN PRN LINE FLUSH Trazodone HCl 50 mg 12/15/20 00:17 Trazodone 50 Mg Tab PO QHS PRN Insomnia Zinc Sulfate 220 mg 12/15/20 01:00 12/18/20 10:33 Zinc Sulfate 220 Mg Cap PO 220 mg BID RONNA Administration Zolpidem Tartrate 10 mg 12/15/20 22:00 12/17/20 22:22 Zolpidem 5 Mg Tab PO 10 mg QHS RONNA Administration
[2020-12-18] MEDS: INSULIN GLARGINE 100 UNITS/ML SUB-Q SCH (21:55)
[2020-12-18] MEDS: ZOLPIDEM 5 MG TAB PO SCH (22:01)
[2020-12-19] MEDS: INSULIN LISPRO 100 UNIT/ML SUB-Q SCH ×4 (00:07→17:16)
--- NOTE | 2020-12-19 05:09 | Progress Note ---
Assessment and Plan Acute hypoxemic respiratory failure COVID-19 Acute renal failure Acute hyperkalemia Hypertension Pulmonary embolism Diabetes type II -Titrate supplemental oxygen to keep SpO2 89-92% as needed. Currently not requiring supplemental oxygen at rest - Remdesivir as per ID/Pulmonary developed protocols (not a candidate re: JULY) - complete systemic steroids for severe COVID-19 infection - Monitor inflammatory markers per facility protocol - ferritin, D-dimer, CRP - therapeutic anticoagulation per system Protocol based on d-dimer and clinical considerations (Has VTE and on Eliquis) - Continue contact and airborne isolation - continue Bronchodilators (SUSANA) with pulm hygiene per RT - azotemia per nephrology team - continue to avoid nephrotoxins, renally dose all medications - continue mobility protocols to prevent pressure ulcers - PT/OT as tolerated - continue accuchecks with glycemic control per SSI for target blood glucose < 180 mg/dL - home oxygen evaluation at discharge - Flu & pneumovax per protocol - Pulmonary out patient follow up for PFTs and optimization of respiratory status - continue other care per attending / other consultants - prn analgesia per pain score -discharge planning Subjective Date of service: 12/19/20 Principal diagnosis: Ac. hypoxemic resp. failure; COVID-19 infxn; JULY; Ac Pulm embolism; DM II Interval history: Patient is seen today for: Acute hypoxemic respiratory failure; COVID-19 infxn; JULY; Acute Pulmonary embolism; DM II Seen and examined at bedside; 24hour events reviewed; nursing and respiratory care staff consulted; no adverse overnight events reported to me; resting in bed; on room air now; denies acute chest pain; no N/V/F/C; denies co [facility] Objective Vital Signs - 12hr 12/18/20 12/19/20 21:44 00:00 Temperature 97.6 F Pulse Rate 98 H Respiratory 18 Rate Blood Pressure 146/87 O2 Sat by Pulse 92 95 Oximetry Constitutional: no acute distress, alert, other (middle aged obese female with normal respiratory effort at rest) Eyes: non-icteric ENT: oropharynx moist Neck: supple, no lymphadenopathy, no JVD, other (large circumference) Effort: mildly labored Ascultation: Bilateral: diminished breath sounds, rhonchi (bases) Percussion: Bilateral: not dull Cardiovascular: regular rate and rhythm, other (S1,S2) Gastrointestinal: normoactive bowel sounds, soft, non-tender, non-distended (protuberant) Integumentary: normal Extremities: no cyanosis, no edema, pulses normal, no ischemia or petechiae Neurologic: normal mental status, non-focal exam, pupils equal and round, CN II- XII normal, motor strength normal and Psychiatric: mood appropriate, affect normal CBC and BMP: 12/19/20 05:44 12/20/20 07:27 ABG, PT/INR, D-dimer: PT/INR, D-dimer PT 15.6 Sec. (12.2-14.9) H 12/15/20 15:18 INR 1.19 (0.87-1.13) H 12/15/20 15:18 D-Dimer 247.74 ng/mlDDU (0-234) H 12/15/20 01:58 Abnormal lab findings: Abnormal Labs 12/14/20 12/14/20 12/14/20 21:42 21:42 21:42 WBC RBC 5.30 H Hgb 15.9 H Hct 45.8 H MCHC 35 H PT INR APTT D-Dimer 251.44 H Sodium 129 L Potassium 5.6 H Chloride 96.0 L Carbon Dioxide 14 L BUN 58 H Creatinine 3.1 H Glucose 229 H POC Glucose Hemoglobin A1c Lactic Acid Ferritin AST ALT Lactate Dehydrogenase Troponin T 0.034 H Total Protein Albumin Triglycerides 429 H HDL Cholesterol 25 L Urine Creatinine Urine Total Protein Coronavirus (PCR) 12/14/20 12/15/20 12/15/20 21:42 01:58 01:58 WBC RBC Hgb Hct MCHC PT INR APTT D-Dimer Sodium Potassium Chloride Carbon Dioxide BUN Creatinine Glucose 265 H POC Glucose Hemoglobin A1c Lactic Acid 3.60 H* 4.00 H* Ferritin AST ALT Lactate Dehydrogenase 261 H Troponin T 0.057 H D Total Protein Albumin Triglycerides HDL Cholesterol Urine Creatinine Urine Total Protein Coronavirus (PCR) 12/15/20 12/15/20 12/15/20 01:58 01:58 01:58 WBC RBC Hgb Hct MCHC PT INR APTT D-Dimer 247.74 H Sodium Potassium Chloride Carbon Dioxide BUN Creatinine Glucose POC Glucose Hemoglobin A1c 10.7 H Lactic Acid Ferritin 1584.0 H AST ALT Lactate Dehydrogenase Troponin T Total Protein Albumin Triglycerides HDL Cholesterol Urine Creatinine Urine Total Protein Coronavirus (PCR) 12/15/20 12/15/20 12/15/20 05:24 05:24 08:13 WBC RBC Hgb Hct MCHC PT INR APTT D-Dimer Sodium Potassium Chloride Carbon Dioxide BUN Creatinine Glucose POC Glucose Hemoglobin A1c Lactic Acid 7.70 H* 9.60 H* Ferritin AST 58 H ALT Lactate Dehydrogenase Troponin T Total Protein 5.4 L Albumin 3.0 L Triglycerides HDL Cholesterol Urine Creatinine Urine Total Protein Coronavirus (PCR) 12/15/20 12/15/20 12/15/20 13:15 15:18 15:18 WBC RBC Hgb 14.5 H Hct 43.7 H MCHC PT 15.6 H INR 1.19 H APTT 106.2 H* D-Dimer Sodium Potassium Chloride Carbon Dioxide BUN Creatinine Glucose POC Glucose 310 H Hemoglobin A1c Lactic Acid Ferritin AST ALT Lactate Dehydrogenase Troponin T Total Protein Albumin Triglycerides HDL Cholesterol Urine Creatinine Urine Total Protein Coronavirus (PCR) 12/15/20 12/15/20 12/15/20 15:18 22:10 Unknown WBC RBC Hgb Hct MCHC PT INR APTT D-Dimer Sodium Potassium Chloride Carbon Dioxide BUN Creatinine 3.7 H Glucose POC Glucose 378 H Hemoglobin A1c Lactic Acid Ferritin AST ALT Lactate Dehydrogenase Troponin T Total Protein Albumin Triglycerides HDL Cholesterol Urine Creatinine Urine Total Protein Coronavirus (PCR) Positive A 12/16/20 12/16/20 12/16/20 04:28 04:28 07:09 WBC RBC 5.24 H Hgb 15.8 H Hct 45.9 H MCHC PT INR APTT D-Dimer Sodium 130 L Potassium 6.7 H* Chloride Carbon Dioxide 12 L BUN 93 H Creatinine 3.9 H Glucose 354 H POC Glucose 336 H Hemoglobin A1c Lactic Acid Ferritin AST 929 H ALT 563 H Lactate Dehydrogenase Troponin T Total Protein Albumin 2.9 L Triglycerides HDL Cholesterol Urine Creatinine Urine Total Protein Coronavirus (PCR) 12/16/20 12/16/20 12/16/20 12:41 16:53 18:53 WBC RBC Hgb Hct MCHC PT INR APTT D-Dimer Sodium Potassium 6.0 H Chloride Carbon Dioxide BUN Creatinine Glucose POC Glucose 291 H 355 H Hemoglobin A1c Lactic Acid Ferritin AST ALT Lactate Dehydrogenase Troponin T Total Protein Albumin Triglycerides HDL Cholesterol Urine Creatinine Urine Total Protein Coronavirus (PCR) 12/16/20 12/17/20 12/17/20 21:38 07:54 08:10 WBC 14.1 H RBC Hgb Hct MCHC PT INR APTT D-Dimer Sodium Potassium Chloride Carbon Dioxide BUN Creatinine Glucose POC Glucose 327 H 323 H Hemoglobin A1c Lactic Acid Ferritin AST ALT Lactate Dehydrogenase Troponin T Total Protein Albumin Triglycerides HDL Cholesterol Urine Creatinine Urine Total Protein Coronavirus (PCR) 12/17/20 12/17/20 12/17/20 12:56 16:49 21:17 WBC RBC Hgb Hct MCHC PT INR APTT D-Dimer Sodium Potassium Chloride Carbon Dioxide BUN Creatinine Glucose POC Glucose 331 H 477 H 469 H Hemoglobin A1c Lactic Acid Ferritin AST ALT Lactate Dehydrogenase Troponin T Total Protein Albumin Triglycerides HDL Cholesterol Urine Creatinine Urine Total Protein Coronavirus (PCR) 12/18/20 12/18/20 12/18/20 00:15 02:22 06:59 WBC RBC Hgb Hct MCHC PT INR APTT D-Dimer Sodium 131 L Potassium Chloride 92.3 L Carbon Dioxide BUN 94 H Creatinine 3.1 H 2.9 H Glucose 369 H POC Glucose 388 H Hemoglobin A1c Lactic Acid Ferritin AST 111 H ALT 241 H Lactate Dehydrogenase Troponin T Total Protein 5.5 L Albumin 2.8 L Triglycerides HDL Cholesterol Urine Creatinine Urine Total Protein Coronavirus (PCR) 12/18/20 12/18/20 12/18/20 08:17 11:34 17:36 WBC RBC Hgb Hct MCHC PT INR APTT D-Dimer Sodium Potassium Chloride Carbon Dioxide BUN Creatinine Glucose POC Glucose 314 H 392 H 445 H Hemoglobin A1c Lactic Acid Ferritin AST ALT Lactate Dehydrogenase Troponin T Total Protein Albumin Triglycerides HDL Cholesterol Urine Creatinine Urine Total Protein Coronavirus (PCR) 12/18/20 12/18/20 17:55 23:25 WBC RBC Hgb Hct MCHC PT INR APTT D-Dimer Sodium Potassium Chloride Carbon Dioxide BUN Creatinine Glucose POC Glucose 389 H Hemoglobin A1c Lactic Acid Ferritin AST ALT Lactate Dehydrogenase Troponin T Total Protein Albumin Triglycerides HDL Cholesterol Urine Creatinine 65.8 H Urine Total Protein 51 H Coronavirus (PCR) Chest x-ray: image reviewed Allied health notes reviewed: RT
[2020-12-19 06:41] LABS: Hematocrit 36.9 % (30.3-42.9); Hemoglobin 12.4 gm/dl (10.1-14.3); Mean Corpuscular HGB Conc 34 % (30-34); Mean Corpuscular Volume 88 fl (79-97); Platelet Count 272 K/mm3 (140-440); Red Blood Count 4.19 M/mm3 (3.65-5.03)
[2020-12-19 07:02] LABS: Calcium 9.1 mg/dL (8.4-10.2)
[2020-12-19] MEDS: ASPIRIN 81 MG TAB CHEW PO SCH (10:51)
[2020-12-19] MEDS: FAMOTIDINE 10 MG TAB PO SCH ×2 (10:51→21:57)
[2020-12-19] MEDS: ZINC SULFATE 220 MG CAP PO SCH ×2 (10:51→21:55)
[2020-12-19] MEDS: amLODIPine 10 MG TAB PO SCH (10:52)
[2020-12-19] MEDS: METOPROLOL TARTRATE 25 MG TAB PO SCH ×2 (10:52→22:20)
[2020-12-19] MEDS: CHOLECALCIFEROL (VIT D3) 1000 UNIT (25 mcg) TAB PO SCH (10:52)
[2020-12-19] MEDS: APIXABAN 5 MG TAB PO SCH ×2 (10:52→21:55)
[2020-12-19] MEDS: ASCORBIC ACID 500 MG TAB PO SCH (10:52)
[2020-12-19] MEDS: dexAMETHasone 4 MG/ML VIAL IV SCH (10:53)
--- NOTE | 2020-12-19 12:22 | Progress Note ---
Assessment and Plan 1. Acute kidney injury: JULY superimposed on CKD in the setting of volume depletion +/- Covid nephropathy. Renal US negative for hydro. Monitor renal function. Creatinine level is improving. Avoid nephrotoxic agents. Meds dosage based on GFR. 2. FEN: Hyperkalemia, improved, monitor. Anion-gap metabolic acidosis, improved, monitor. Hyponatremia, improving, monitor. Stop IV fluids. Monitor lytes and volume status. 3. Acute respiratory failure with hypoxemia: 2/2 Covid PNA. Supplemental O2 via NC O2 as needed. 4. Covid PNA: Followed by ID. 5. Elevated ALT & AST: Trend. 6. DM type 2, uncontrolled: On SSI and Lantus. 7. Hypertension: BP controlled. Subjective: Patient was seen and examined at the bedside. Doing better. Eating well. Examination: General appearance: well-developed, appears stated age, obese, on RA HEENT: atraumatic, VILMA Neck: trachea midline Respiratory: faint rales heard Heart: S1S2, regular, no murmur Abdomen: soft, bowel sounds heard, NT Integumentary: no obvious rash Neurologic: AO, non-focal Ext: edema Subjective Date of service: 12/19/20 Principal diagnosis: Ac. hypoxemic resp. failure; COVID-19 infxn; JULY; Ac Pulm embolism; DM II Objective - Vital Signs Vital signs: Vital Signs - 12hr 12/19/20 12/19/20 12/19/20 04:30 10:47 10:52 Temperature 97.6 F 97.3 F L Pulse Rate 92 H 91 H 91 H Respiratory 18 16 Rate Blood Pressure 119/84 131/74 Blood Pressure 131/84 [Left] O2 Sat by Pulse 97 Oximetry - Lab 12/19/20 05:44 12/19/20 05:44 Most recent lab results Calcium 9.1 mg/dL (8.4-10.2) 12/19/20 05:44 Urine Creatinine 65.8 mg/dL (0.1-20.0) H 12/18/20 17:55 Urine Sodium 22 mmol/L 12/18/20 17:55 Urine Total Protein 51 mg/dL (5-11.8) H 12/18/20 17:55 Medications & Allergies - Medications Allergies/Adverse Reactions: Allergies No Known Allergies Allergy (Unverified 01/23/15 17:09) Home Medications: Home Medications Medication Instructions Recorded Confirmed Last Taken Type Zolpidem (Nf) [Ambien (Nf)] 10 mg PO QHS 06/06/14 12/16/20 Unknown History glyBURIDE [Diabeta] 5 mg PO DAILY 06/06/14 12/16/20 Unknown History metFORMIN [Glucophage] 1,000 mg PO BID 06/06/14 12/16/20 Unknown History Enoxaparin [Lovenox] 110 mg SQ BID #10 syringe 06/10/14 12/16/20 Unknown Rx Metoprolol [Lopressor TAB] 25 mg PO BID #60 tablet 06/10/14 12/16/20 Unknown Rx Warfarin [Coumadin] 7.5 mg PO DAILY@1700 #30 tablet 06/10/14 12/16/20 Unknown Rx amLODIPine 10 mg PO QDAY #30 tablet 06/10/14 12/16/20 Unknown Rx Active Medications: Generic Name Dose Route Start Last Admin Trade Name Freq PRN Reason Stop Dose Admin Acetaminophen 650 mg 12/15/20 00:07 Acetaminophen 325 Mg Tab PO Q4H PRN Pain MILD(1-3)/Fever >100.5/RECIO Al Hydrox/Mg Hydrox/Simethicone 30 ml 12/15/20 00:07 Alum-Mag Hydroxide-Simethicone [phone]/5ml Oral Liqd 30 Ml PO Q4H PRN Indigestion Amlodipine Besylate 10 mg 12/15/20 10:00 12/19/20 10:52 Amlodipine 10 Mg Tab PO 10 mg QDAY RONNA Administration Apixaban 5 mg 12/15/20 14:00 12/19/20 10:52 Apixaban 5 Mg Tab PO 5 mg Q12HR RONNA Administration Protocol Ascorbic Acid 500 mg 12/15/20 10:00 12/19/20 10:52 Ascorbic Acid 500 Mg Tab PO 500 mg QDAY RONNA Administration Aspirin 81 mg 12/15/20 14:00 12/19/20 10:51 Aspirin 81 Mg Tab Chew PO 81 mg QDAY RONNA Administration Cholecalciferol 1,000 unit 12/15/20 10:00 12/19/20 10:52 Cholecalciferol (Vit D3) 1000 Unit (25 Mcg) Tab PO 1,000 unit QDAY RONNA Administration Dexamethasone 6 mg 12/15/20 10:00 12/19/20 10:53 Dexamethasone 4 Mg/Ml Vial IV 12/24/20 10:01 6 mg DAILY RONNA Administration Dextrose 50 ml 12/18/20 12:41 Dextrose 50% In Water (25gm) 50 Ml Syringe IV Q30MIN PRN Hypoglycemia Protocol Famotidine 10 mg 12/16/20 10:00 12/19/20 10:51 Famotidine 10 Mg Tab PO 10 mg BID RONNA Administration Sodium Chloride 1,000 mls @ 75 mls/hr 12/18/20 09:00 12/18/20 22:02 Nacl 0.9% 1000 Ml IV 75 mls/hr DIRECT RONNA Administration Insulin Glargine 40 units 12/18/20 22:00 12/18/20 21:55 Insulin Glargine 100 Units/Ml SUB-Q 40 units QHS RONNA Administration Insulin Human Lispro 0 unit 12/18/20 18:00 12/19/20 06:09 Insulin Lispro 100 Unit/Ml SUB-Q 4 unit Q6HR RONNA Administration Protocol Magnesium Hydroxide 30 ml 12/15/20 00:07 Magnesium Hydroxide (Mom) Oral Liqd Udc PO Q4H PRN Constipation Metoprolol Tartrate 25 mg 12/15/20 01:00 12/19/20 10:52 Metoprolol Tartrate 25 Mg Tab PO 25 mg BID RONNA Administration Naloxone HCl 0.1 mg 12/15/20 00:07 Naloxone 0.4 Mg/1 Ml Inj IV Q2MIN PRN Res Rate </= 8 or 02 SAT < 92% Ondansetron HCl 4 mg 12/15/20 00:07 12/15/20 00:30 Ondansetron 4 Mg/2 Ml Inj IV 4 mg Q8H PRN Administration Nausea And Vomiting Senna 8.6 mg 12/15/20 00:07 Sennosides 8.6 Mg Tab PO Q12HR PRN Constipation Sodium Chloride 10 ml 12/15/20 10:00 12/19/20 10:53 Sodium Chloride 0.9% 10 Ml Flush Syringe IV 10 ml BID RONNA Administration Sodium Chloride 10 ml 12/15/20 00:07 Sodium Chloride 0.9% 10 Ml Flush Syringe IV PRN PRN LINE FLUSH Trazodone HCl 50 mg 12/15/20 00:17 Trazodone 50 Mg Tab PO QHS PRN Insomnia Zinc Sulfate 220 mg 12/15/20 01:00 12/19/20 10:51 Zinc Sulfate 220 Mg Cap PO 220 mg BID RONNA Administration Zolpidem Tartrate 10 mg 12/15/20 22:00 12/18/20 22:01 Zolpidem 5 Mg Tab PO 10 mg QHS RONNA Administration
--- NOTE | 2020-12-19 14:51 | Progress Note ---
Assessment and Plan - Patient Problems (1) Abnormal EKG Current Visit: Yes Status: Acute Plan to address problem: Patient admitted with Covid infection, undergoing management by internal medicine and infectious disease. Patient's EKG show a chronic diffuse ST elevation, unchanged from previous ECGs, consistent with early repolarization. No further cardiac interventions, we will sign off and follow on a as needed basis. Subjective Date of service: 12/19/20 Principal diagnosis: Ac. hypoxemic resp. failure; COVID-19 infxn; JULY; Ac Pulm embolism; DM II Interval history: Patient is comfortable, no cardiac complaints reported. Objective Vital Signs Temp Pulse Resp BP BP Pulse Ox 12/19/20 10:52 91 H 131/74 12/19/20 10:47 97.3 F L 91 H 16 131/84 12/19/20 04:30 97.6 F 92 H 18 119/84 97 12/19/20 00:00 95 12/18/20 21:44 97.6 F 98 H 18 146/87 92 12/18/20 16:35 97 H 94 12/18/20 16:34 98.2 F 99 H 20 154/84 93 - Physical Examination Narrative exam: Full physical exam is deferred due to patient's positive Covid infection. - Labs and Meds CBC 12/19/20 Range/Units 05:44 WBC 21.3 H (4.5-11.0) K/mm3 RBC 4.19 (3.65-5.03) M/mm3 Hgb 12.4 (10.1-14.3) gm/dl Hct 36.9 (30.3-42.9) % Plt Count 272 (140-440) K/mm3 Comprehensive Metabolic Panel 12/19/20 Range/Units 05:44 Sodium 133 L (137-145) mmol/L Potassium 4.6 (3.6-5.0) mmol/L Chloride 93.9 L (98-107) mmol/L Carbon Dioxide 26 (22-30) mmol/L BUN 73 H (7-17) mg/dL Creatinine 2.2 H (0.6-1.2) mg/dL Glucose 286 H (65-100) mg/dL Calcium 9.1 (8.4-10.2) mg/dL - Imaging and Cardiology EKG: report reviewed, image reviewed - EKG Sinus rhythms and dysrhythmias: sinus tachycardia - Allied health notes Allied health notes reviewed: nursing
[2020-12-19] MEDS: ZOLPIDEM 5 MG TAB PO SCH (21:55)
[2020-12-19] MEDS: INSULIN GLARGINE 100 UNITS/ML SUB-Q SCH (22:19)
[2020-12-20] MEDS: INSULIN LISPRO 100 UNIT/ML SUB-Q SCH ×3 (00:25→12:00)
[2020-12-20 08:59] LABS: Calcium 9.3 mg/dL (8.4-10.2)
[2020-12-20 10:23] VITALS: BP 132/76
[2020-12-20] MEDS: FAMOTIDINE 10 MG TAB PO SCH (10:23)
[2020-12-20] MEDS: METOPROLOL TARTRATE 25 MG TAB PO SCH (10:23)
[2020-12-20] MEDS: ASPIRIN 81 MG TAB CHEW PO SCH (10:23)
[2020-12-20] MEDS: dexAMETHasone 4 MG/ML VIAL IV SCH (10:24)
[2020-12-20] MEDS: APIXABAN 5 MG TAB PO SCH (10:24)
[2020-12-20] MEDS: amLODIPine 10 MG TAB PO SCH (10:24)
[2020-12-20] MEDS: CHOLECALCIFEROL (VIT D3) 1000 UNIT (25 mcg) TAB PO SCH (10:24)
[2020-12-20] MEDS: ASCORBIC ACID 500 MG TAB PO SCH (10:24)
[2020-12-20] MEDS: ZINC SULFATE 220 MG CAP PO SCH (10:25)
--- NOTE | 2020-12-20 11:49 | Progress Note ---
Assessment and Plan 1. Acute kidney injury: JULY superimposed on CKD in the setting of volume depletion +/- Covid nephropathy. Renal US negative for hydro. Monitor renal function. Creatinine level is better. Avoid nephrotoxic agents. Meds dosage based on GFR. 2. FEN: Hyperkalemia, improved, monitor. Anion-gap metabolic acidosis, improved, monitor. Hyponatremia, improved, monitor. Monitor lytes and volume status. 3. Acute respiratory failure with hypoxemia: 2/2 Covid PNA. Remain on RA. 4. Covid PNA: Followed by ID. 5. Elevated ALT & AST: Trend. 6. DM type 2, uncontrolled: On SSI and Lantus. Bl glu is better. 7. Hypertension: BP controlled. Subjective: Patient was seen and examined at the bedside. Doing better. Eating well. Examination: General appearance: well-developed, appears stated age, obese, on RA HEENT: atraumatic, VILMA Neck: trachea midline Respiratory: ctab Heart: S1S2, regular, no murmur Abdomen: soft, bowel sounds heard, NT Integumentary: no obvious rash Neurologic: AO, non-focal Ext: edema Subjective Date of service: 12/20/20 Principal diagnosis: Ac. hypoxemic resp. failure; COVID-19 infxn; JULY; Ac Pulm embolism; DM II Objective - Vital Signs Vital signs: Vital Signs - 12hr 12/20/20 12/20/20 12/20/20 02:19 06:21 08:13 Temperature 98.5 F Pulse Rate 111 H Respiratory 20 Rate Blood Pressure 133/80 Blood Pressure [Left] O2 Sat by Pulse 94 100 96 Oximetry 12/20/20 12/20/20 12/20/20 08:25 10:22 10:23 Temperature 97.6 F Pulse Rate 116 H 118 H Respiratory 20 Rate Blood Pressure 132/76 Blood Pressure 132/76 [Left] O2 Sat by Pulse 90 100 Oximetry - Lab 12/19/20 05:44 12/20/20 07:27 Most recent lab results Calcium 9.3 mg/dL (8.4-10.2) 12/20/20 07:27 Urine Creatinine 65.8 mg/dL (0.1-20.0) H 12/18/20 17:55 Urine Sodium 22 mmol/L 12/18/20 17:55 Urine Total Protein 51 mg/dL (5-11.8) H 12/18/20 17:55 Medications & Allergies - Medications Allergies/Adverse Reactions: Allergies No Known Allergies Allergy (Unverified 06/06/14 17:09) Home Medications: Home Medications Medication Instructions Recorded Confirmed Last Taken Type Zolpidem (Nf) [Ambien (Nf)] 10 mg PO QHS 06/06/14 12/16/20 Unknown History glyBURIDE [Diabeta] 5 mg PO DAILY 06/06/14 12/16/20 Unknown History metFORMIN [Glucophage] 1,000 mg PO BID 06/06/14 12/16/20 Unknown History Enoxaparin [Lovenox] 110 mg SQ BID #10 syringe 06/10/14 12/16/20 Unknown Rx Metoprolol [Lopressor TAB] 25 mg PO BID #60 tablet 06/10/14 12/16/20 Unknown Rx Warfarin [Coumadin] 7.5 mg PO DAILY@1700 #30 tablet 06/10/14 12/16/20 Unknown Rx amLODIPine 10 mg PO QDAY #30 tablet 06/10/14 12/16/20 Unknown Rx Active Medications: Generic Name Dose Route Start Last Admin Trade Name Freq PRN Reason Stop Dose Admin Acetaminophen 650 mg 12/15/20 00:07 Acetaminophen 325 Mg Tab PO Q4H PRN Pain MILD(1-3)/Fever >100.5/RECIO Al Hydrox/Mg Hydrox/Simethicone 30 ml 12/15/20 00:07 Alum-Mag Hydroxide-Simethicone [phone]/5ml Oral Liqd 30 Ml PO Q4H PRN Indigestion Amlodipine Besylate 10 mg 12/15/20 10:00 12/20/20 10:24 Amlodipine 10 Mg Tab PO 10 mg QDAY RONNA Administration Apixaban 5 mg 12/15/20 14:00 12/20/20 10:24 Apixaban 5 Mg Tab PO 5 mg Q12HR RONNA Administration Protocol Ascorbic Acid 500 mg 12/15/20 10:00 12/20/20 10:24 Ascorbic Acid 500 Mg Tab PO 500 mg QDAY RONNA Administration Aspirin 81 mg 12/15/20 14:00 12/20/20 10:23 Aspirin 81 Mg Tab Chew PO 81 mg QDAY RONNA Administration Cholecalciferol 1,000 unit 12/15/20 10:00 12/20/20 10:24 Cholecalciferol (Vit D3) 1000 Unit (25 Mcg) Tab PO 1,000 unit QDAY RONNA Administration Dexamethasone 6 mg 12/15/20 10:00 12/20/20 10:24 Dexamethasone 4 Mg/Ml Vial IV 12/24/20 10:01 6 mg DAILY RONNA Administration Dextrose 50 ml 12/18/20 12:41 Dextrose 50% In Water (25gm) 50 Ml Syringe IV Q30MIN PRN Hypoglycemia Protocol Famotidine 10 mg 12/16/20 10:00 12/20/20 10:23 Famotidine 10 Mg Tab PO 10 mg BID RONNA Administration Insulin Glargine 40 units 12/18/20 22:00 12/19/20 22:19 Insulin Glargine 100 Units/Ml SUB-Q 40 units QHS RONNA Administration Insulin Human Lispro 0 unit 12/18/20 18:00 12/20/20 06:55 Insulin Lispro 100 Unit/Ml SUB-Q 2 unit Q6HR RONNA Administration Protocol Magnesium Hydroxide 30 ml 12/15/20 00:07 Magnesium Hydroxide (Mom) Oral Liqd Udc PO Q4H PRN Constipation Metoprolol Tartrate 25 mg 12/15/20 01:00 12/20/20 10:23 Metoprolol Tartrate 25 Mg Tab PO 25 mg BID RONNA Administration Naloxone HCl 0.1 mg 12/15/20 00:07 Naloxone 0.4 Mg/1 Ml Inj IV Q2MIN PRN Res Rate </= 8 or 02 SAT < 92% Ondansetron HCl 4 mg 12/15/20 00:07 12/15/20 00:30 Ondansetron 4 Mg/2 Ml Inj IV 4 mg Q8H PRN Administration Nausea And Vomiting Senna 8.6 mg 12/15/20 00:07 Sennosides 8.6 Mg Tab PO Q12HR PRN Constipation Sodium Chloride 10 ml 12/15/20 10:00 12/20/20 10:25 Sodium Chloride 0.9% 10 Ml Flush Syringe IV 10 ml BID RONNA Administration Sodium Chloride 10 ml 12/15/20 00:07 Sodium Chloride 0.9% 10 Ml Flush Syringe IV PRN PRN LINE FLUSH Trazodone HCl 50 mg 12/15/20 00:17 Trazodone 50 Mg Tab PO QHS PRN Insomnia Zinc Sulfate 220 mg 12/15/20 01:00 12/20/20 10:25 Zinc Sulfate 220 Mg Cap PO 220 mg BID RONNA Administration Zolpidem Tartrate 10 mg 12/15/20 22:00 12/19/20 21:55 Zolpidem 5 Mg Tab PO 10 mg QHS RONNA Administration
--- NOTE | 2020-12-20 14:00 | Progress Note ---
Assessment and Plan - Patient Problems (1) Acute respiratory failure with hypoxia Current Visit: Yes Status: Acute Plan to address problem: Supplemental oxygen, pulse oximetry, nebulizer therapy, noninvasive positive pressure ventilation as clinically indicated. (2) COVID-19 Current Visit: Yes Status: Acute Plan to address problem: Coronavirus protocol: IV steroid therapy, IV antibiotic therapy, contact precautions, isolation precaution, prone positioning while in bed, therapeutic anticoagulation. (3) Acute renal failure Current Visit: Yes Status: Acute Qualifiers: Acute renal failure type: with acute renal cortical necrosis Qualified Code(s): N17.1 - Acute kidney failure with acute cortical necrosis Plan to address problem: Monitor urine output every shift, continue medical management, IV fluid resuscitation therapy as clinically indicated, nephrology team consulted. Dialysis as per renal team. Repeat BMP in a.m., (4) Hypertension Current Visit: Yes Status: Chronic Qualifiers: Hypertension type: primary hypertension Qualified Code(s): I10 - Essential (primary) hypertension Plan to address problem: Monitor blood pressure every shift, continue medical management (5) Pulmonary embolism Current Visit: No Status: Acute Qualifiers: Chronicity: chronic Plan to address problem: Continue therapeutic anticoagulation, supportive care. (6) Diabetes Current Visit: No Status: Chronic Plan to address problem: Consistent carbohydrate diet, Accu-Chek, insulin protocol, hypoglycemia protocol (7) Obesity hypoventilation syndrome Current Visit: Yes Status: Acute Plan to address problem: Balanced diet, increase physical activity at discharge, outpatient pulmonary follow-up for sleep study. (8) DVT prophylaxis Current Visit: Yes Status: Acute Plan to address problem: SCD to bilateral lower extremities while in bed, continue therapeutic anticoagulation History Interval history: 55 YO Female HD #6 with acute hypoxemic respiratory failure secondary to coronavirus infection, history of pulmonary embolism, acute kidney injury, obesity hypoventilation syndrome. No reported nursing events. Patient acknowledges improvement in shortness of breath, generalized weakness, as well as malaise. Patient denies pain. Patient resting comfortably on room air. D/C planning in am. Hospitalist Physical - Constitutional Vitals: Temp Pulse Resp BP Pulse Ox 97.6 F 118 H 20 132/76 100 12/20/20 10:22 12/20/20 10:23 12/20/20 10:22 12/20/20 10:23 12/20/20 10:22 General appearance: Present: mild distress, obese - EENT Eyes: Present: PERRL, EOM intact ENT: hearing intact - Neck Neck: Present: supple - Respiratory Respiratory effort: normal Respiratory: bilateral: CTA - Cardiovascular Rhythm: regular Heart Sounds: Present: S1 & S2 - Extremities Extremities: no ischemia Peripheral Pulses: within normal limits - Abdominal General gastrointestinal: soft, non-tender, non-distended - Integumentary Integumentary: Present: clear, dry - Psychiatric Psychiatric: appropriate mood/affect, cooperative - Neurologic Neurologic: CNII-XII intact HEART Score - HEART Score Troponin: Troponin T 0.025 ng/mL (0.00-0.029) 12/16/20 04:28 Results - Labs CBC & Chem 7: 12/19/20 05:44 12/20/20 07:27 Labs: Laboratory Last Values WBC 21.3 K/mm3 (4.5-11.0) H 12/19/20 05:44 RBC 4.19 M/mm3 (3.65-5.03) 12/19/20 05:44 Hgb 12.4 gm/dl (10.1-14.3) 12/19/20 05:44 Hct 36.9 % (30.3-42.9) 12/19/20 05:44 MCV 88 fl (79-97) 12/19/20 05:44 MCH 30 pg (28-32) 12/19/20 05:44 MCHC 34 % (30-34) 12/19/20 05:44 RDW 14.0 % (13.2-15.2) 12/19/20 05:44 Plt Count 272 K/mm3 (140-440) 12/19/20 05:44 Lymph % (Auto) [employer] 12/16/20 04:28 [place] % (Auto) [employer] 12/16/20 04:28 Eos % (Auto) [employer] 12/16/20 04:28 Baso % (Auto) [employer] 12/16/20 04:28 Lymph # (Auto) [employer] 12/16/20 04:28 [place] # (Auto) [employer] 12/16/20 04:28 Eos # (Auto) [employer] 12/16/20 04:28 Baso # (Auto) [employer] 12/16/20 04:28 Seg Neutrophils % [employer] 12/16/20 04:28 Seg Neutrophils # [employer] 12/16/20 04:28 PT 15.6 Sec. (12.2-14.9) H 12/15/20 15:18 INR 1.19 (0.87-1.13) H 12/15/20 15:18 APTT 106.2 Sec. (24.2-36.6) H* 12/15/20 15:18 D-Dimer 247.74 ng/mlDDU (0-234) H 12/15/20 01:58 Heparin Anti-Xa Level 0.59 U.I./ml (0.3-0.7) 12/15/20 15:18 Sodium 138 mmol/L (137-145) 12/20/20 07:27 Potassium 4.1 mmol/L (3.6-5.0) 12/20/20 07:27 Chloride 100.7 mmol/L (98-107) 12/20/20 07:27 Carbon Dioxide 29 mmol/L (22-30) 12/20/20 07:27 Anion Gap 12 mmol/L 12/20/20 07:27 BUN 52 mg/dL (7-17) H 12/20/20 07:27 Creatinine 1.6 mg/dL (0.6-1.2) H 12/20/20 07:27 Estimated GFR 41 ml/min 12/20/20 07:27 BUN/Creatinine Ratio 33 % 12/20/20 07:27 Glucose 143 mg/dL (65-100) H 12/20/20 07:27 POC Glucose 233 mg/dL (70-105) H 12/20/20 12:15 Hemoglobin A1c 10.7 % (4-6) H 12/15/20 01:58 Lactic Acid 9.60 mmol/L (0.7-2.0) H* 12/15/20 08:13 Calcium 9.3 mg/dL (8.4-10.2) 12/20/20 07:27 Ferritin 1584.0 ng/mL (10.0-200.0) H 12/15/20 01:58 Total Bilirubin 0.30 mg/dL (0.1-1.2) 12/18/20 02:22 Direct Bilirubin < 0.2 mg/dL (0-0.2) 12/15/20 05:24 Indirect Bilirubin 0.0 mg/dL 12/15/20 05:24 AST 111 units/L (5-40) H 12/18/20 02:22 ALT 241 units/L (7-56) H 12/18/20 02:22 Alkaline Phosphatase 68 units/L (35-129) 12/18/20 02:22 Lactate Dehydrogenase 261 units/L (91-180) H 12/15/20 01:58 Troponin T 0.025 ng/mL (0.00-0.029) 12/16/20 04:28 C-Reactive Protein 0.60 mg/dL (0.00-1.30) 12/15/20 01:58 Total Protein 5.5 g/dL (6.3-8.2) L 12/18/20 02:22 Albumin 2.8 g/dL (3.9-5) L 12/18/20 02:22 Albumin/Globulin Ratio 1.0 % 12/18/20 02:22 Triglycerides 429 mg/dL (2-149) H 12/14/20 21:42 Cholesterol 147 mg/dL (50-199) 12/14/20 21:42 LDL Cholesterol Direct TNR 12/14/20 21:42 HDL Cholesterol 25 mg/dL (40-59) L 12/14/20 21:42 Cholesterol/HDL Ratio 5.88 % 12/14/20 21:42 Procalcitonin 0.83 ng/mL (<0.15) 12/15/20 01:58 Urine Color Yellow (Yellow) 12/18/20 17:55 Urine Turbidity Clear (Clear) 12/18/20 17:55 Urine pH 5.0 (5.0-7.0) 12/18/20 17:55 Ur Specific [place] 1.018 (1.003-1.030) 12/18/20 17:55 Urine Protein 30 mg/dl mg/dL (Negative) 12/18/20 17:55 Urine Glucose (UA) >=500 mg/dL (Negative) 12/18/20 17:55 Urine Ketones Neg mg/dL (Negative) 12/18/20 17:55 Urine Blood Sm (Negative) 12/18/20 17:55 Urine Nitrite Neg (Negative) 12/18/20 17:55 Urine Bilirubin Neg (Negative) 12/18/20 17:55 Urine Urobilinogen < 2.0 mg/dL (<2.0) 12/18/20 17:55 Ur Leukocyte Esterase Sm (Negative) 12/18/20 17:55 Urine WBC (Auto) 2.0 /HPF (0.0-6.0) 12/18/20 17:55 Urine RBC (Auto) 2.0 /HPF (0.0-6.0) 12/18/20 17:55 U Epithel Cells (Auto) 1.0 /HPF (0-13.0) 12/18/20 17:55 Urine Bacteria (Auto) 1+ /HPF (Negative) 12/18/20 17:55 Urine Mucus Few /HPF 12/18/20 17:55 Urine Eosinophils None seen (None Seen) 12/18/20 17:55 Urine Creatinine 65.8 mg/dL (0.1-20.0) H 12/18/20 17:55 Protein/Creatinin Ratio 0.78 12/18/20 17:55 Urine Sodium 22 mmol/L 12/18/20 17:55 Urine Total Protein 51 mg/dL (5-11.8) H 12/18/20 17:55 Coronavirus (PCR) Positive (Negative) A 12/15/20 Unknown Microbiology: Microbiology 12/14/20 21:42 Peripheral/Venous Blood Culture - Final NO GROWTH AFTER 5 DAYS 12/14/20 21:52 Peripheral/Venous Blood Culture - Final NO GROWTH AFTER 5 DAYS Young/IV: Voiding Method Toilet Active Medications - Current Medications Current Medications: Generic Name Dose Route Start Last Admin Trade Name Freq PRN Reason Stop Dose Admin Acetaminophen 650 mg 12/15/20 00:07 Acetaminophen 325 Mg Tab PO Q4H PRN Pain MILD(1-3)/Fever >100.5/RECIO Al Hydrox/Mg Hydrox/Simethicone 30 ml 12/15/20 00:07 Alum-Mag Hydroxide-Simethicone [id number]/5ml Oral Liqd 30 Ml PO Q4H PRN Indigestion Amlodipine Besylate 10 mg 12/15/20 10:00 12/20/20 10:24 Amlodipine 10 Mg Tab PO 10 mg QDAY RONNA Administration Apixaban 5 mg 12/15/20 14:00 12/20/20 10:24 Apixaban 5 Mg Tab PO 5 mg Q12HR RONNA Administration Protocol Ascorbic Acid 500 mg 12/15/20 10:00 12/20/20 10:24 Ascorbic Acid 500 Mg Tab PO 500 mg QDAY RONNA Administration Aspirin 81 mg 12/15/20 14:00 12/20/20 10:23 Aspirin 81 Mg Tab Chew PO 81 mg QDAY RONNA Administration Cholecalciferol 1,000 unit 12/15/20 10:00 12/20/20 10:24 Cholecalciferol (Vit D3) 1000 Unit (25 Mcg) Tab PO 1,000 unit QDAY RONNA Administration Dexamethasone 6 mg 12/15/20 10:00 12/20/20 10:24 Dexamethasone 4 Mg/Ml Vial IV 12/24/20 10:01 6 mg DAILY RONNA Administration Dextrose 50 ml 12/18/20 12:41 Dextrose 50% In Water (25gm) 50 Ml Syringe IV Q30MIN PRN Hypoglycemia Protocol Famotidine 10 mg 12/16/20 10:00 12/20/20 10:23 Famotidine 10 Mg Tab PO 10 mg BID RONNA Administration Insulin Glargine 40 units 12/18/20 22:00 12/19/20 22:19 Insulin Glargine 100 Units/Ml SUB-Q 40 units QHS RONNA Administration Insulin Human Lispro 0 unit 12/18/20 18:00 12/20/20 12:00 Insulin Lispro 100 Unit/Ml SUB-Q 2 unit Q6HR RONNA Administration Protocol Magnesium Hydroxide 30 ml 12/15/20 00:07 Magnesium Hydroxide (Mom) Oral Liqd Udc PO Q4H PRN Constipation Metoprolol Tartrate 25 mg 12/15/20 01:00 12/20/20 10:23 Metoprolol Tartrate 25 Mg Tab PO 25 mg BID RONNA Administration Naloxone HCl 0.1 mg 12/15/20 00:07 Naloxone 0.4 Mg/1 Ml Inj IV Q2MIN PRN Res Rate </= 8 or 02 SAT < 92% Ondansetron HCl 4 mg 12/15/20 00:07 12/15/20 00:30 Ondansetron 4 Mg/2 Ml Inj IV 4 mg Q8H PRN Administration Nausea And Vomiting Senna 8.6 mg 12/15/20 00:07 Sennosides 8.6 Mg Tab PO Q12HR PRN Constipation Sodium Chloride 10 ml 12/15/20 10:00 12/20/20 10:25 Sodium Chloride 0.9% 10 Ml Flush Syringe IV 10 ml BID RONNA Administration Sodium Chloride 10 ml 12/15/20 00:07 Sodium Chloride 0.9% 10 Ml Flush Syringe IV PRN PRN LINE FLUSH Trazodone HCl 50 mg 12/15/20 00:17 Trazodone 50 Mg Tab PO QHS PRN Insomnia Zinc Sulfate 220 mg 12/15/20 01:00 12/20/20 10:25 Zinc Sulfate 220 Mg Cap PO 220 mg BID RONNA Administration Zolpidem Tartrate 10 mg 12/15/20 22:00 12/19/20 21:55 Zolpidem 5 Mg Tab PO 10 mg QHS RONNA Administration
--- NOTE | 2020-12-20 14:08 | Discharge Summary ---
Providers - Providers Date of Admission: 12/14/20 23:25 Attending physician: EYAD HUFFMAN 12/15/20 00:07 Consult to Physician [CONS] Routine Comment: Consulting Provider: STEVE BEST Physician Instructions: Reason For Exam: covid 19 12/15/20 05:19 Consult to Cardiology [CONS] Routine Consulting Provider: RADHA MCCORD Reason For Exam: Elevated troponin 12/15/20 11:51 Consult to Physician [CONS] Routine Comment: Consulting Provider: VIDA COCHRAN Physician Instructions: Reason For Exam: Respiratory failure 12/16/20 13:59 Physical Therapy Evaluation and Treat [CONS] Routine Comment: Reason For Exam: generalized weakness 12/17/20 06:58 Consult to Physician [CONS] Routine Comment: Consulting Provider: URIEL MENDES Physician Instructions: Reason For Exam: JULY on CKD Primary care physician: [employer] Hospitalization Condition: Stable Hospital course: 55 year old female with history of diabetes and hypertension. Patient presented to the ER via EMS complaining of generalized weakness, chest pain, shortness of breath, nausea, vomiting and diarrhea. Patient stated that her symptoms been going on for 5 days. Patient stated that she tested positive for COVID-19 today. Patient also reports abdominal pain. Patient is on oxygen by nasal cannula at 2 L. I reviewed patient medication record and vital signs. Patient started on Decadron, ascorbic acid, vitamin D and zinc sulfate. Patient advised on the use of incentive spirometer and prone positioning. Infectious disease consulted. Patient has history of PE and supposed to be on Coumadin. Patient patient has not been compliant with Coumadin therapyshe said she has not been taking it. Patient cannot recollect when she had the PE. Will start patient on heparin drip and Coumadinto a goal of 2-3 INR. Disposition: - TO HOME OR SELFCARE - Discharge Diagnoses (1) Acute respiratory failure with hypoxia Status: Acute (2) COVID-19 Status: Acute (3) Acute renal failure Status: Acute Qualifiers: Acute renal failure type: with acute renal cortical necrosis Qualified Code(s): N17.1 - Acute kidney failure with acute cortical necrosis (4) Hypertension Status: Chronic Qualifiers: Hypertension type: primary hypertension Qualified Code(s): I10 - Essential (primary) hypertension (5) Pulmonary embolism Status: Acute Qualifiers: Chronicity: chronic (6) Diabetes Status: Chronic (7) Obesity hypoventilation syndrome Status: Acute (8) DVT prophylaxis Status: Acute Core Measure Documentation - Palliative Care Palliative Care/ Comfort Measures: Not Applicable - Core Measures Any of the following diagnoses?: none Exam - Constitutional Vitals: Temp Pulse Resp BP Pulse Ox 97.6 F 118 H 20 132/76 100 12/20/20 10:22 12/20/20 10:23 12/20/20 10:22 12/20/20 10:23 12/20/20 10:22 General appearance: Present: obese - EENT Eyes: Present: PERRL ENT: hearing intact, clear oral mucosa - Neck Neck: Present: supple, normal ROM - Respiratory Respiratory effort: normal Respiratory: bilateral: CTA - Cardiovascular Heart Sounds: Present: S1 & S2. Absent: rub, click - Extremities Extremities: pulses symmetrical, No edema Peripheral Pulses: within normal limits - Abdominal General gastrointestinal: Present: soft, non-tender, non-distended, normal bowel sounds Female genitourinary: Present: normal - Integumentary Integumentary: Present: clear, warm, dry - Musculoskeletal Musculoskeletal: gait normal, strength equal bilaterally - Psychiatric Psychiatric: appropriate mood/affect, intact judgment & insight - Neurologic Neurologic: CNII-XII intact, moves all extremities Plan Activity: advance as tolerated Diet: low fat, low cholesterol Follow up with: PRIMARY CARE,MD [Primary Care Provider] - 3-5 Days Prescriptions: Apixaban [Eliquis] 5 mg PO BID #60 tablet Prednisone [predniSONE 10 mg (6-Day Pack, 21 Tabs)] 10 mg PO .TAPER #1 tab.ds.pk Ascorbic Acid [Vitamin C] 1,000 mg PO DAILY #14 tablet Cholecalciferol Vit D3 [Vitamin D3 1,000 UNIT TAB] 1,000 unit PO QDAY #14 tablet Zinc Sulfate 220 mg PO BID #28 capsule Azithromycin [Zithromax TAB] 250 mg PO QDAY #6 tablet
== END 2020-12-20 17:30 | disposition home or self-care (01) | DRG 177 ==
LOC: ED 21:09 → 3A 23:25
PROVIDERS: ADMIT Internal Medicine Geriatric Medicine; ATTEND Internal Medicine
DX: U07.1 COVID-19 (principal); J96.01 Acute respiratory failure with hypoxia; J12.82 Pneumonia due to coronavirus disease 2019; N17.0 Acute kidney failure with tubular necrosis; E87.2 Acidosis; E87.1 Hypo-osmolality and hyponatremia; E66.2 Morbid (severe) obesity with alveolar hypoventilation; E87.5 Hyperkalemia; I12.9 Hypertensive chronic kidney disease with stage 1 through stage 4 chronic kidney disease, or unspecified chronic kidney disease; E11.22 Type 2 diabetes mellitus with diabetic chronic kidney disease; N18.32 Chronic kidney disease, stage 3b; Z68.36 Body mass index [BMI] 36.0-36.9, adult; Z86.711 Personal history of pulmonary embolism; Z82.49 Family history of ischemic heart disease and other diseases of the circulatory system; Z83.3 Family history of diabetes mellitus; Z79.899 Other long term (current) drug therapy
CPT/HCPCS: 36415; 71045; 71250; 76770; 80048; 80053; 80061; 80076; 81001; 82140; 82565; 82570; 82728; 82947; 82962; 83036; 83520; 83615; 84132; 84145; 84156; 84300; 84484; 85025; 85027; 85379; 85520; 85610; 85730; 86140; 87040; 89050; 93005; 94760; G0378; J0456; J0610; J0696; J1100; J1644; J1815; J2270; J2405; J7030; J7070; U0003